=== PATIENT | female | born 1935 | race Caucasian/White ===

== ENCOUNTER 2017-05-05 00:59 | Inpatient (IN) | payer MEDICARE ==
[2017-05-05 02:14] LABS: #Lymphocytes 3.3 thou/uL (1.20-3.40); #Monocytes 1.4 thou/uL (0.11-0.59); #Neutrophils 13.2 thou/uL (1.40-6.50); %Basophils 0.1 % (0.0-1.0); %Eosinophils 0.2 % (0.0-10.0); %Lymphocytes 18.4 % (21.0-51.0); %Monocytes 7.6 % (0.0-10.0); Hematocrit 38.5 % (36.0-47.0); Mean Platelet Volume 6.7 fL (7.4-10.4); Red Blood Cell (RBC) Count 4.11 mill/uL (4.20-5.40); White Blood Cell (WBC) Count 17.9 thou/uL (4.8-10.8)
[2017-05-05 02:20] LABS: PTT 31.2 SEC (22.9-36.1)
[2017-05-05 02:26] LABS: Anion Gap 14 mmol/L (10-20); BUN (Urea Nitrogen) 60 mg/dL (9.8-20.1); Calc. Creatinine Clearance 0 mL/min (70-130); Calcium 9.7 mg/dL (7.8-10.44); Carbon Dioxide 23 mmol/L (23-31); Chloride 99 mmol/L (98-107); Estimated GFR-MDRD 28
[2017-05-05 02:40] LABS: CK (CPK) 6652 U/L (29-168)
[2017-05-05 03:02] LABS: Troponin I 7.431 ng/mL (< 0.028)
[2017-05-05 03:34] LABS: Bilirubin Negative (Negative); Blood, Urine Large (Negative); Glucose, Urine (Dipstick) 250 mg/dL (Negative); Ketone, Urine Negative (Negative); Nitrite Negative (Negative); Protein, Urine (Dipstick) 30 mg/dL (Neg-Trace); Urobilinogen 0.2 mg/dL (0.2-1.0)
[2017-05-05 03:36] LABS: Bacteria/HPF None Seen HPF (None Seen); Hyaline Casts/LPF 0-3 HYALINE CAST LPF (0-3 Hyaline); Squamous Epithelial 0-3 HPF (0-3); WBC/HPF 0-3 HPF (0-3)
[2017-05-05] MEDS ORDERED: Heparin 1,000 UNITS/ML VIAL ONE (04:12)
[2017-05-05] MEDS ORDERED: Heparin 25,000 units/D5W 500 ML IV SCH (04:15)
[2017-05-05] MEDS ORDERED: Heparin 10,000 UNITS/ 10 ML VIAL SLOW IVP SCH (04:15)
[2017-05-05] MEDS ORDERED: Heparin 25,000 units/D5W 500 ML ONE (04:49)
[2017-05-05 07:30] LABS: Troponin I 7.006 ng/mL (< 0.028)
--- NOTE | 2017-05-05 09:23 | HP ---
REASON FOR ADMISSION: Fall. HISTORY OF PRESENT ILLNESS: This is an elderly female with history of multiple medical problems to i nclude coronary artery disease with bypass in the past followed by Dr. Delgado as well as hypertension and diabetes. Yesterday, she was going to the bathroom and she fell. Her family became concerned and they usually call every night, she would not answer the phone, so about 10:30, they went to go check on her and th ey realized she would probably been on the floor for over 4 hours. The patient knew what was going o n, but was brought into the hospital where x-rays were obtained, the results of this are pending at t he time of dictation. However, she was found to have elevated cardiac enzymes suggestive of ID; ther efore admitted to the hospital for further evaluation and treatment. The patient denies any chest, arm or back pain. She also denies any syncopal or near syncopal episod es. PAST MEDICAL HISTORY: 1. Hypertension. 2. Diabetes. 3. Vitamin D deficiency. 4. Syncope in the past. PAST SURGICAL HISTORY: 1. Tonsillectomy and appendectomy in the past. 2. Coronary artery disease with bypass in the past. ALLERGIES: CODEINE. MEDICATIONS: 1. Coreg 25 mg b.i.d. 2. Aspirin 325 mg every day. SOCIAL HISTORY: She does not smoke, she does not drink alcohol. FAMILY HISTORY: Noncontributory. REVIEW OF SYSTEMS: General: No weight gain or loss, weakness, fatigue, fever or chills. HEENT: No diplopia, amaurosis fugax, tinnitus, sore throat or hoarseness. Cardiovascular: No chest , arm or back pain. Pulmonary: No cough, hemoptysis. Gastrointestinal: No GI bleed, constipation, diarrhea. Genitourinary: No dysuria, nocturia, oliguria or polyuria. Endocrine: No polyphagia, p olydipsia or heat or cold intolerance. Musculoskeletal: Admits to arthralgias. No lupus or myopath y. Neurologic: No history of TIA or seizure. All systems are negative. PHYSICAL EXAMINATION: GENERAL: Pleasant female who appears to be in no acute distress. VITAL SIGNS: Stable. PERRLA. Sclerae area clear, not icteric. She had bilateral arcus senilis. T here is no xanthelasma. NECK: Supple with no increased JVP or carotid bruit. Carotid had good upstroke with no thyromegaly. COR: Regular rate and rhythm. CHEST: Symmetrical. Clear to auscultation and percussion. ABDOMEN: Soft, nontender with normoactive bowel sounds. There is no bruit or organomegaly. EXTREMITIES: No edema or cyanosis. Palpable pedal pulses. SKIN: There is no evidence of ulceration, lesion, or rash. NEUROLOGIC: She is awake, alert, and oriented to person, place, and time. LABORATORY DATA: Her white blood cells 17.9, H&H is normal. Her CMP shows sodium of 132. BUN 50, c reatinine 1.6. Her CK-MB is 100.3. Her troponin is 7.43. ASSESSMENT: 1. Status post myocardial infarction. 2. History of coronary artery disease with bypass in the past. 3. Hypertension. 4. Diabetes. 5. Leukocytosis, questionable etiology. PLAN: 1. The patient will be changed to a full admit and will be left n.p.o. until Cardiology sees the pat ient in consultation. We will continue heparin drip. We will begin her beta alfonso. We will also continue oxygen as well. 2. We will check a urine C&S and lipid profile, chest x-ray, CBC, CMP and hemoglobin A1c in the morn ing. 3. We will begin checking blood sugars a.c. and at bedtime and use sliding scale insulin per protoco l. The patient verbalized understanding as well as the daughter and all questions answered to satisf action. This is ANÍBAL Walls dictating for Dr. Johnny Rose.
--- NOTE | 2017-05-05 10:18 | RAD ---
LEFT KNEE 4 VIEWS: Date: 05/05/17 HISTORY: Fall. Pain. COMPARISON: None. FINDINGS: There is diffuse bone demineralization. Joint spaces are preserved. No fracture. No significant joint effusion. Vascular calcifications are noted. IMPRESSION: No fracture. POS: [facility]
--- NOTE | 2017-05-05 10:25 | RAD ---
4 VIEWS RIGHT KNEE: Date: 05/05/17 HISTORY: Fall. Pain. Trauma. COMPARISON: None. FINDINGS: No joint effusion. Joint spaces are preserved. There are vascular calcifications. Diffuse bone demine ralization is identified. No fracture. IMPRESSION: No fracture. POS: [facility]
[2017-05-05 10:29] LABS: Troponin I 7.694 ng/mL (< 0.028)
[2017-05-05] MEDS ORDERED: Enoxaparin Sodium 40 MG/0.4 ML SYRINGE SC SCH (10:45)
--- NOTE | 2017-05-05 11:24 | CON ---
DATE OF SERVICE: 05/05/2017 TYPE OF CONSULTATION: Cardiology Consultation. REASON FOR CONSULTATION: Non-STEMI. HISTORY OF PRESENT ILLNESS: Mrs. Rothman is a very pleasant 82-year-old female who comes to the hospital for a fall. She lives alone, was at home and went to the bathroom to take a shower, she was taking clothes off. She really cannot explain to me how she fell, but she suddenly was on the floor and she could not get up as her leg was twisted. She usually gets a phone call from her son at 9 p.m. every night. Her son states she saw her last at 5 p.m. in that same day, gave her a recall at about 9:30, she would not answer. By 10 p.m. she would not answer, so he decided to go in to see what was going on as he knew it was cold outside and she was not outside. So, when he arrived, he found her on the floor in the bathroom. 911 was called and she was brought in for evaluation. She apparently has no broken bones that I can tell and she had some blood work done and showed a troponin of 7, so Cardiology is being consulted for this. She does have a history of coronary artery disease, having had 3-vessel bypass and an EF of around 40-45%. She has been having a lot of episodes of falling at one point, she was falling due to medications. She had her BiDil stopped and she was doing better. Recently, the family tells me that this is the third time she has fallen in the past 2 weeks. PAST MEDICAL HISTORY: 1. Coronary artery disease as above. 2. Cardiomyopathy as above. 3. Hypertension. 4. Type 2 diabetes. 5. Hyperlipidemia. 6. Multiple falls. PAST SURGICAL HISTORY: 1. Cholecystectomy. 2. Appendectomy. 3. Coronary bypass grafting as above. 4. Carotid endarterectomy. OUTPATIENT MEDICATIONS: Include, 1. Coreg 25 mg b.i.d. 2. Aspirin 81 a day. 3. Glyburide. ALLERGIES: CODEINE. FAMILY HISTORY: Positive for diabetes and heart disease. Noncontributory in this case. SOCIAL HISTORY: No alcohol, tobacco or drugs. REVIEW OF SYSTEMS: A 12-point review of systems was done and is all negative unless stated in the history of present illness. PHYSICAL EXAMINATION: VITAL SIGNS: Temperature 98.2, pulse 64, respiration rate 18, satting 98% on 2 liters, blood pressure 128/62. GENERAL: Awake, alert and oriented x3, in no distress. HEENT: Normocephalic, atraumatic. NECK: Supple. LUNGS: Clear. CARDIOVASCULAR: S1, S2, no S3, S4. There is a grade 2/6 systolic murmur in the right upper sternal border. ABDOMEN: Soft, nontender, nondistended. EXTREMITIES: No edema. SKIN: Warm and dry. LABORATORY WORK: Reviewed. She had a white count of 17, hemoglobin 12, hematocrit 38, platelet count 206. Coags were reviewed. Chemistries were reviewed. Sodium was 132, BUN 60, creatinine 1.76, which is much higher than her baseline which is around 0.9, GFR of 28, glucose was 359 , this morning it was 96. CK was 6652, CK-MB was 100, troponin I was 7.4, now 7.0. UA was yellow , cloudy with 30 protein, 250 glucose, large amount of blood, 7-10 red cells. EKG was reviewed. ASSESSMENT AND PLAN: 1. Non-ST elevation myocardial infarction: Most likely related to her fall and being on the floor for so long and most likely demand ischemia; however, this may also just mean that she failed her stress test and she will need further risk stratification with a heart catheterization. I am not planning on doing it today or tomorrow as her kidney function is much higher than baseline and kidneys will have enough trouble getting rid of her myoglobin and will need some hydration for her rhabdomyolysis from the fall. This will probably happen in the next week or so. Currently, I agree with full anticoagulation. I will switch her heparin drip to Lovenox subcutaneous She is only 40 kilos, so 40 subcu once a day should be enough with her current GFR. 2. Echocardiogram to be done to evaluate LV function. Thank you for letting us participate in the care of your patient. We will follow. TERRY
[2017-05-05] MEDS ORDERED: Enoxaparin Sodium 40 MG/0.4 ML SYRINGE ONE (11:36)
[2017-05-05] MEDS ORDERED: Ondansetron ODT 4 MG TAB PO PRN (12:27)
[2017-05-05] MEDS ORDERED: Ondansetron HCl/PF 4 MG/2 ML Vial IVP PRN ×2 (12:27→18:49)
[2017-05-05] MEDS ORDERED: Acetaminophen 325 MG TAB PO PRN ×2 (12:28→18:49)
--- NOTE | 2017-05-05 14:57 | CT ---
PRELIMINARY REPORT/[facility]/EMERGENCY AFTER HOURS PROCEDURE: EXAM: CT Head Without Intravenous Contrast CLINICAL HISTORY: 82 years old, female; Injury or trauma; Fall; Initial encounter; Blunt trauma (contusions or hematoma s); Consciousness not specified; Patient HX: S/P fall TECHNIQUE: Axial computed tomography images of the head/brain without intravenous contrast. COMPARISON: No relevant prior studies available. FINDINGS: Brain: Mild volume loss No hemorrhage. Chronic right parietal infarction. Mild white matter disease. No edema. Ventricles: Unremarkable. No ventriculomegaly. Bones/joints: Unremarkable. No acute fracture. Soft tissues: Unremarkable. Sinuses: Unremarkable as visualized. No acute sinusitis. Mastoid air cells: Unremarkable as visualized. No mastoid effusion. IMPRESSION: No intracranial hemorrhage.Please see discussion above. Thank you for allowing us to participate in the care of your patient. Dictated and Authenticated by: Luca Rincon MD 05/05/2017 3:16 AM Central Time ([place] & [place]) FINAL REPORT HEAD CT NONCONTRAST: Date: 05/05/17 FINDINGS/IMPRESSION: I agree with the preliminary report given by Rubi. Comparison with 06/23/15. No intracranial hemorrhage or mass effect. Redemonstration of focal encephalomalacia of the right parietal cortex and white matter with addition al scattered areas of hypodensity related to gliosis from chronic ischemic disease.
--- NOTE | 2017-05-05 14:59 | CT ---
PRELIMINARY REPORT/[facility]/EMERGENCY AFTER HOURS PROCEDURE: EXAM: CT Cervical Spine Without Intravenous Contrast CLINICAL HISTORY: 82 years old, female; Injury or trauma; Fall; Initial encounter; Blunt trauma (contusions or hematoma s); Consciousness not specified; Patient HX: S/P fall TECHNIQUE: Axial computed tomography images of the cervical spine without intravenous contrast. COMPARISON: No relevant prior studies available. FINDINGS: Vertebrae: Loss of vertebral body height, presumed degenerative No acute fracture. Discs/spinal canal/neural foramina: No acute findings. Central canal and foraminal stenosis most pron ounced at C4-C5 and C5-C6 Soft tissues: Unremarkable. Lung apices: Unremarkable as visualized. IMPRESSION: No definite acute cervical fracture observed Thank you for allowing us to participate in the care of your patient. Dictated and Authenticated by: Luca Rincon MD 05/05/2017 3:16 AM Central Time ([place]) FINAL REPORT CERVICAL SPINE CT WITHOUT CONTRAST: Date: 05/05/17 HISTORY: Status post fall. Post-traumatic pain. COMPARISON: 08/08/13. TECHNIQUE: Noncontrast cervical spine CT is performed in the axial plane. Reformatted images are submitted for i nterpretation. FINDINGS: This report is in agreement with the preliminary report by Rubi. No cervical spine fracture. There is degenerative change with loss of disc space height and varying degrees of central canal stenosis and foraminal narrowing. Evaluation is limited by technique. Nonemergent cervical spine MRI can be perfo rmed. Stable calcifications along the posterior aspect of the central spinal canal at the C5 level. POS: [facility]
[2017-05-05] MEDS ORDERED: Dextrose 50% Abboject 50 ML SYRINGE IVP PRN (17:32)
[2017-05-05] MEDS ORDERED: Insulin Regular 300 UNITS/3 ML VIAL SC PRN (17:32)
[2017-05-05] MEDS ORDERED: Dextrose 5% in Water 1,000 ML IV PRN (17:32)
[2017-05-05] MEDS ORDERED: Ondansetron ODT 4 MG TAB SL PRN (18:49)
[2017-05-05] MEDS: Acetaminophen 325 MG TAB PO PRN (19:15)
[2017-05-05] MEDS: Carvedilol 25 MG TAB PO SCH (20:56)
[2017-05-06 05:10] LABS: #Eosinphils 0.1 thou/uL (0.0-0.7); #Lymphocytes 4.8 thou/uL (1.20-3.40); #Monocytes 1.1 thou/uL (0.11-0.59); #Neutrophils 7.3 thou/uL (1.40-6.50); %Basophils 0.2 % (0.0-1.0); %Eosinophils 0.5 % (0.0-10.0); %Monocytes 8.4 % (0.0-10.0); Hematocrit 35.4 % (36.0-47.0); Mean Platelet Volume 6.9 fL (7.4-10.4); Red Blood Cell (RBC) Count 3.74 mill/uL (4.20-5.40); White Blood Cell (WBC) Count 13.2 thou/uL (4.8-10.8)
[2017-05-06 05:15] LABS: Hemoglobin A1c 6.9 % (4.0-6.0)
[2017-05-06 05:33] LABS: ALT (SGPT) 66 U/L (8-55); AST (SGOT) 191 U/L (5-34); Alkaline Phosphatase 85 U/L (40-150); Anion Gap 10 mmol/L (10-20); BUN (Urea Nitrogen) 37 mg/dL (9.8-20.1); Bilirubin, Total 0.7 mg/dL (0.2-1.2); Calc. Creatinine Clearance 28 mL/min (70-130); Calcium 8.7 mg/dL (7.8-10.44); Carbon Dioxide 26 mmol/L (23-31); Chloride 104 mmol/L (98-107); Cholesterol 105 mg/dl (< 200 Desired); Estimated GFR-MDRD 53; Globulin 3.1 g/dL (2.4-3.5); LDL Cholesterol, Calculated 46 mg/dL; Protein, Total 6.4 g/dL (6.0-8.3)
--- NOTE | 2017-05-06 08:57 | RAD ---
SINGLE VIEW OF THE CHEST: COMPARISON: 01/19/16. HISTORY: Myocardial infarction. FINDINGS: A single view of the chest shows a normal-size cardiomediastinal silhouette. The patient is status p ost sternotomy. Atelectasis is seen in both lung bases. Increased interstitial lung markings are pr esent. There is no evidence of consolidation, mass, or pleural effusion. IMPRESSION: Bibasilar atelectasis without acute cardiopulmonary process. POS: [facility]
[2017-05-06] MEDS ORDERED: Enoxaparin Sodium 40 MG/0.4 ML SYRINGE SC SCH (09:00)
[2017-05-06] MEDS: Sodium Chloride 0.9% 1,000 ML IV SCH ×2 (09:01→18:49)
[2017-05-06] MEDS: Carvedilol 25 MG TAB PO SCH ×2 (09:01→21:24)
[2017-05-06] MEDS: Insulin Regular 300 UNITS/3 ML VIAL SC PRN (12:03)
[2017-05-06] MEDS: Acetaminophen 325 MG TAB PO PRN ×2 (12:03→23:57)
--- NOTE | 2017-05-06 15:03 | PQF ---
DATE: 05-09-17 ATTN: DR. SKIP ANDINO Please exercise your independent, professional judgment in responding to the clarification form. Clinical indicators are provided on the bottom of this form for your review Please check appropriate box(s): [ x ] Acute Renal Failure (ARF) / Acute Kidney Injury (ASAD) [ ] Acute on Chronic Renal Failure please specify Stage of CKD (see below) [ ] CKD without ARF/ASAD please specify Stage of CKD [ x ] Other diagnosis _rhabdomyolysis [ ] Unable to determine In addition, please specify: Present on Admission (POA): [ ] Yes [ ] No [ ] Unable to determine National Kidney Foundation Guidelines for CKD Staging Stage I Kidney damage with normal or increased GFR GFR > 90 Stage II Kidney damage with mildly decreased GFR GFR 60-89 Stage III Kidney damage with moderately decreased GFR GFR 30-59 Stage IV Kidney damage with severely decreased GFR GFR 16-29 Stage V Kidney failure GFR<15 ESRDEnd Stage Renal Disease On dialysis For continuity of documentation, please document condition throughout progress notes and discharge summary. Thank You. CLINICAL INDICATORS - SIGNS / SYMPTOMS / LABS ER DOCUMENTATION: PT WAS DOWN IN BATHROOM FOR UNKNOWN LENGTH OF TIME GFR: 05-05-17: 28 05-06-17 53 BUN: 05-05-17: 60 05-06-17: 37 CREATININE: 05-05-17: 1.76 05-06-17: 1.01 RISK FACTORS: CONSULT NOTE DR. LAND 05-05-17: I AM NOT PLANNING ON DOING IT TOMORROW HER KIDNEY FUNCTION IS MUCH HIGHER THAN BASELINE AND SHE IS GOING TO HAVE TO HAVE ENOUGH TIME GETTING RID OF HER MYOGLOBIN AND WILL NEED SOME HYDRATION FOR HER RHABDOMYOLYSIS FROM THE FALL TREATMENTS: IVF (05-06-17) (This form is maintained as a part of the permanent medical record) 2014 [employer] All Rights Reserved WILFREDO [email or web address] Office: [phone] [facility]ITAL[facility]
--- NOTE | 2017-05-06 15:29 | PDOC.CTH ---
Cardiology Progress Note - Subjective She is feeling better. No chest pain, tightness, pressure, SOB. - Objective Vital Signs Temp Pulse Resp BP Pulse Ox 05/06/17 11:25 98.4 F 70 18 109/54 L 99 05/06/17 08:00 98.4 F 70 18 05/06/17 07:18 98.6 F 69 16 137/61 99 05/06/17 04:08 98.4 F 73 16 122/56 L 96 Admit Weight 88 lb 3.2 oz Weight 89 lb 1.6 oz 05/05/17 05/06/17 05/07/17 06:59 06:59 06:59 Intake Total 490 480 Balance 490 480 - Physical Examination General/Neuro: alert & oriented x3, NAD Neck: no JVD present Lungs: CTA, unlabored respirations Heart: RRR Abdomen: NT/ND Extremities: other: (no edema.) - Telemetry Telemetry Rhythm: NSR - Labs Result Diagrams: 05/06/17 04:36 05/06/17 04:36 Troponin/CKMB CK-MB (CK-2) 100.3 ng/mL (0-6.6) H* 05/05/17 02:01 Troponin I 7.694 ng/mL (< 0.028) H* 05/05/17 09:52 - Assessment/Plan 1. NSTEMI 2. Rhabdomyolysis. 3. S/P Fall 4. Orthostatic hypotension. PLAN: - Continue IV hydration. - Apical hypoikinsis. Will plan on doing LHC. - We spoke about risks and benefits of procedure and she agrees to proceed. DAVID if needed.
[2017-05-06] MEDS ORDERED: Communication Order-Pharmacy FS SCH (15:45)
[2017-05-07] MEDS: Sodium Chloride 0.9% 1,000 ML IV SCH ×4 (00:09→21:00)
[2017-05-07 04:51] LABS: #Basophils 0.1 thou/uL (0.0-0.2); #Eosinphils 0.1 thou/uL (0.0-0.7); #Monocytes 0.8 thou/uL (0.11-0.59); #Neutrophils 5.3 thou/uL (1.40-6.50); %Basophils 0.5 % (0.0-1.0); %Eosinophils 0.6 % (0.0-10.0); %Lymphocytes 39.1 % (21.0-51.0); %Monocytes 7.8 % (0.0-10.0); Mean Platelet Volume 7.3 fL (7.4-10.4); Red Blood Cell (RBC) Count 3.25 mill/uL (4.20-5.40); White Blood Cell (WBC) Count 10.3 thou/uL (4.8-10.8)
[2017-05-07 05:05] LABS: Anion Gap 9 mmol/L (10-20); BUN (Urea Nitrogen) 29 mg/dL (9.8-20.1); CK (CPK) 3832 U/L (29-168); Calc. Creatinine Clearance 34 mL/min (70-130); Calcium 8.4 mg/dL (7.8-10.44); Carbon Dioxide 26 mmol/L (23-31); Chloride 111 mmol/L (98-107); Estimated GFR-MDRD 66
[2017-05-07] MEDS ORDERED: Heparin 1000 UNIT/NS 500ML(OR) 1,000 ML ONE (06:33)
[2017-05-07] MEDS ORDERED: Lidocaine 1% (PF) 30 ML VIAL ONE (06:57)
[2017-05-07] MEDS: Carvedilol 25 MG TAB PO SCH ×2 (08:44→21:00)
--- NOTE | 2017-05-07 08:53 | PRG ---
DATE OF SERVICE: 05/07/2017 SUBJECTIVE: The patient had a good night. She has no chest pain, has no breathing problems. The on ly thing she is complaining of is her back hurting. PHYSICAL EXAMINATION: GENERAL: She is awake. VITAL SIGNS: Her blood pressure 156/70, pulse 68, respirations 20, temperature 99. HEENT: Unremarkable. Normal oropharynx. PERRLA. Sclerae clear, not icteric. She had bilateral arc us senilis. There is no xanthelasma. NECK: Supple with no increased JVP or carotid bruit. Carotid had good upstroke with no thyromegaly. COR: Regular rate and rhythm. CHEST: Symmetrical. Clear to auscultation and percussion. ABDOMEN: Soft, nontender with normoactive bowel sounds. No bruit or organomegaly. EXTREMITIES: No edema or cyanosis. She had palpable pedal pulses. SKIN: There is no evidence of ulceration lesion, or rash. NEUROLOGIC: She is awake and alert and oriented. Her blood sugar is 142. Her CK is better at 3832. ASSESSMENT: 1. Non-ST elevated myocardial infarction. 2. Status post fall. 3. Rhabdomyolysis. 4. Non-insulin dependent diabetes mellitus. PLAN: The patient will be continued on IV fluids. The patient will be undergoing angiographic evalu ation as outlined by Dr. Tyson.
[2017-05-07] MEDS: Acetaminophen 325 MG TAB PO PRN (16:29)
--- NOTE | 2017-05-07 18:23 | PDOC.CTH ---
Cardiology Progress Note - Subjective She is doing well. No chest pain, tightness, pressure, SOB. - Objective Vital Signs Temp Pulse Resp BP Pulse Ox 05/07/17 16:00 98.9 F 83 20 133/61 95 05/07/17 11:49 98.5 F 78 20 116/55 L 94 L 05/07/17 08:00 99.0 F 68 20 166/72 H 99 Admit Weight 88 lb 3.2 oz Weight 110 lb 05/06/17 05/07/17 05/08/17 06:59 06:59 06:59 Intake Total 490 3318 1735 Output Total 1250 Balance 490 2068 1735 - Physical Examination General/Neuro: alert & oriented x3, NAD Neck: no JVD present Lungs: CTA, unlabored respirations Heart: RRR Abdomen: NT/ND Extremities: other: (no edema) - Telemetry Telemetry Rhythm: NSR - Labs Result Diagrams: 05/07/17 03:51 05/07/17 03:51 Troponin/CKMB CK-MB (CK-2) 100.3 ng/mL (0-6.6) H* 05/05/17 02:01 Troponin I 7.694 ng/mL (< 0.028) H* 05/05/17 09:52 - Assessment/Plan 1. NSTEMI 2. Rhabdomyolysis. 3. S/P Fall 4. Orthostatic hypotension. PLAN: - Continue IV hydration. - Apical hypokinesis. I offered C yesterday but she is now not sure if she wants this,. I had a long conversation with her and her family about this and she will make a decision but for now will treat her NSTEMI medically.
[2017-05-07] MEDS ORDERED: Enoxaparin Sodium 60 MG/0.6 ML SYRINGE SC SCH (18:30)
[2017-05-08 06:16] LABS: Hematocrit 33.2 % (36.0-47.0)
[2017-05-08] MEDS: Sodium Chloride 0.9% 1,000 ML IV SCH ×2 (06:16→13:54)
[2017-05-08] MEDS: Carvedilol 25 MG TAB PO SCH ×2 (08:31→21:41)
[2017-05-08] MEDS: Enoxaparin Sodium 60 MG/0.6 ML SYRINGE SC SCH ×2 (08:32→21:42)
[2017-05-08 10:41] VITALS: BMI 21.7
[2017-05-08] MEDS: Insulin Regular 300 UNITS/3 ML VIAL SC PRN (11:15)
--- NOTE | 2017-05-08 13:08 | PDOC.CTH ---
Cardiology Progress Note - Subjective No new issues. She denies any chest pain, tightness, pressure, SOB. - Objective Vital Signs Temp Pulse Pulse Pulse Resp BP BP 05/08/17 11:05 98.3 F 71 18 05/08/17 09:35 68 73 131/62 128/60 05/08/17 08:00 99.6 F 70 18 05/08/17 07:25 99.6 F 70 18 05/08/17 03:18 98.4 F 79 18 BP Pulse Ox Pulse Ox Pulse Ox 05/08/17 11:05 168/72 H 96 05/08/17 09:35 93 L 94 L 05/08/17 08:00 99 05/08/17 07:25 153/67 H 99 05/08/17 03:18 158/68 H 97 Admit Weight 88 lb 3.2 oz Weight 107 lb 9.6 oz 05/07/17 05/08/17 05/09/17 06:59 06:59 06:59 Intake Total 3318 4250 480 Output Total 1250 300 Balance 2068 3950 480 - Physical Examination General/Neuro: alert & oriented x3, NAD Neck: no JVD present Lungs: CTA, unlabored respirations Heart: RRR Abdomen: NT/ND Extremities: other: (no edema.) - Telemetry Telemetry Rhythm: NSR - Labs Result Diagrams: 05/08/17 06:02 05/08/17 06:02 Troponin/CKMB CK-MB (CK-2) 100.3 ng/mL (0-6.6) H* 05/05/17 02:01 Troponin I 7.694 ng/mL (< 0.028) H* 05/05/17 09:52 - Assessment/Plan 1. NSTEMI 2. Rhabdomyolysis. 3. S/P Fall 4. Orthostatic hypotension. PLAN: - Will hold IV fluids for now as she is starting to get a little short winded with lying flat. - She has decided she does want to go ahead and have a [facility]. - Will polan on doing this tomorrow morning.
[2017-05-08] MEDS ORDERED: Communication Order-Pharmacy FS SCH (13:15)
[2017-05-08] MEDS: Lisinopril 10 MG TAB PO SCH (21:41)
[2017-05-09] MEDS: Enoxaparin Sodium 60 MG/0.6 ML SYRINGE SC SCH (05:22)
[2017-05-09] MEDS: Lisinopril 10 MG TAB PO SCH ×2 (05:27→20:48)
[2017-05-09] MEDS: Carvedilol 25 MG TAB PO SCH ×2 (05:27→20:48)
[2017-05-09 05:58] LABS: Anion Gap 12 mmol/L (10-20); BUN (Urea Nitrogen) 15 mg/dL (9.8-20.1); CK (CPK) 844 U/L (29-168); Calc. Creatinine Clearance 43 mL/min (70-130); Calcium 8.8 mg/dL (7.8-10.44); Carbon Dioxide 26 mmol/L (23-31); Chloride 106 mmol/L (98-107); Estimated GFR-MDRD 68
--- NOTE | 2017-05-09 08:15 | PRG ---
DATE OF SERVICE: 05/09/2017 This is ANÍBAL Walls dictating a progress note for Johnny Rose M.D SUBJECTIVE: The patient is very weak. Therapy is helping her get to the commode. She apparently do es not want to have a CAT, but she does not want to sign the consent. Does says, change for BiPAP. PHYSICAL EXAMINATION: GENERAL: Upon evaluation, she is awake and she is alert and oriented. VITAL SIGNS: Her blood pressure is 160/70, pulse 80, respirations 20. She is afebrile. NECK: Supple with no increased JVP or carotid bruit. Carotid had good upstroke with no thyromegaly. COR: Regular rate and rhythm. CHEST: Symmetrical. Clear to auscultation and percussion. ABDOMEN: Soft and nontender with normoactive bowel sounds. No bruit or organomegaly. EXTREMITIES: No edema or cyanosis. She had palpable pedal pulses. SKIN: There is no evidence of ulcer, lesion, or rash. NEUROLOGIC: She is awake and alert. ASSESSMENT: 1. Status post myocardial infarction. 2. Rhabdomyolysis status post fall. 3. Diabetes. 4. Hypertension. PLAN: We will leave the plan up to Cardiology. If she is not going to have a catheterization, then we will assess for placement by rn social services.
[2017-05-09] MEDS: Acetaminophen 325 MG TAB PO PRN (08:55)
[2017-05-09] MEDS: Insulin Regular 300 UNITS/3 ML VIAL SC PRN (11:38)
--- NOTE | 2017-05-09 12:43 | PDOC.CTH ---
Cardiology Progress Note - Subjective She is doing well. She denies any chest pain, tightness ,pressure, SOB. - Objective Vital Signs Temp Pulse Resp BP BP Pulse Ox 05/09/17 11:10 99 F 71 18 96 05/09/17 10:07 71 103/51 L 05/09/17 08:00 99.7 F H 71 18 185/75 H 92 L 05/09/17 05:31 84 160/72 H 05/09/17 05:27 160/72 H 05/09/17 03:14 98.7 F 83 16 183/77 H 93 L Admit Weight 88 lb 3.2 oz Weight 109 lb 12.8 oz 05/08/17 05/09/17 05/10/17 06:59 06:59 06:59 Intake Total 4250 2530 Output Total 300 Balance 3950 2530 - Physical Examination General/Neuro: alert & oriented x3, NAD Neck: no JVD present Lungs: CTA, unlabored respirations Heart: RRR Abdomen: NT/ND Extremities: other: (no edema.) - Telemetry Telemetry Rhythm: NSR - Labs Result Diagrams: 05/08/17 06:02 05/09/17 05:08 Troponin/CKMB CK-MB (CK-2) 100.3 ng/mL (0-6.6) H* 05/05/17 02:01 Troponin I 7.694 ng/mL (< 0.028) H* 05/05/17 09:52 - Assessment/Plan 1. NSTEMI 2. Rhabdomyolysis. 3. S/P Fall 4. Orthostatic hypotension. PLAN: - She did not want to sign the consent again for her [facility], she is not wanting to have not even the remote possibility of a CABG. I think this is reasonable as she has had it before and knows what it entails. She is having no symptoms suggestive of ischemia, she has not had any arrhythmias on telemetry. She has been tolerating PT well. - Will plan to continue current regimen for now.
[2017-05-09] MEDS: Amlodipine 5 MG TAB PO SCH (17:40)
[2017-05-10 06:03] LABS: Hematocrit 34.3 % (36.0-47.0)
[2017-05-10 07:18] VITALS: TEMP 97.7
[2017-05-10] MEDS: Carvedilol 25 MG TAB PO SCH (08:39)
[2017-05-10] MEDS: Amlodipine 5 MG TAB PO SCH (08:39)
[2017-05-10] MEDS: Lisinopril 10 MG TAB PO SCH (08:39)
[2017-05-10] MEDS ORDERED: Enoxaparin Sodium 40 MG/0.4 ML SYRINGE SC SCH (09:00)
[2017-05-10 09:47] VITALS: BP 107/54
--- NOTE | 2017-05-25 13:49 | EKG ---
Test Reason : FALL Blood Pressure : / mmHG Vent. Rate : 100 BPM Atrial Rate : 100 BPM P-R Int : 184 ms QRS Dur : 074 ms QT Int : 338 ms P-R-T Axes : 043 -18 -29 degrees QTc Int : 436 ms Normal sinus rhythm Minimal voltage criteria for LVH, may be normal variant Inferior infarct , age undetermined Possible Anterior infarct , age undetermined Abnormal ECG Confirmed by GREGORIA ZARATE ([id number]), editorial director JOSH APPLE ([id number] on 05/25/2017 1:48:58 PM Referred By: Confirmed By:GREGORIA ZARATE
--- NOTE | 2017-05-25 13:49 | EKG ---
Test Reason : REPEAT Blood Pressure : / mmHG Vent. Rate : 095 BPM Atrial Rate : 095 BPM P-R Int : 200 ms QRS Dur : 078 ms QT Int : 350 ms P-R-T Axes : 105 000 -08 degrees QTc Int : 439 ms Normal sinus rhythm Cannot rule out Anterior infarct , age undetermined T wave abnormality, consider lateral ischemia Abnormal ECG Confirmed by GREGORIA ZARATE ([id number]), script editor JOSH APPLE ([id number]) on 05/25/2017 1:48:58 PM Referred By: Confirmed By:GREGORIA ZARATE
== END 2017-05-10 10:12 | DRG 281 ==
LOC: ERS 00:59 → ERHOLD 04:24 → 2SE 12:39
PROVIDERS: ADMIT Specialist; ATTEND Specialist
DX: I21.4 Non-ST elevation (NSTEMI) myocardial infarction (principal); M62.82 Rhabdomyolysis; N17.9 Acute kidney failure, unspecified; I42.9 Cardiomyopathy, unspecified; E11.9 Type 2 diabetes mellitus without complications; Z95.1 Presence of aortocoronary bypass graft; I10 Essential (primary) hypertension; Z91.81 History of falling; I25.10 Atherosclerotic heart disease of native coronary artery without angina pectoris; E55.9 Vitamin D deficiency, unspecified; Z79.82 Long term (current) use of aspirin; Z88.5 Allergy status to narcotic agent; W18.30XA Fall on same level, unspecified, initial encounter; Y93.E1 Activity, personal bathing and showering; Y92.012 Bathroom of single-family (private) house as the place of occurrence of the external cause; E78.5 Hyperlipidemia, unspecified; I95.1 Orthostatic hypotension
CPT/HCPCS: 36415; 36416; 70450; 71010; 72125; 80048; 80053; 80061; 81003; 81015; 82550; 82553; 82565; 83036; 84484; 85014; 85018; 85025; 85049; 85610; 85730; 87086; 93005; 93306; 93798; 96361; 96365; 96366; 96372; 96375; A4216; G8978-GP-CM; G8979-GP-CK; G8987-GO-CK; G8988-GO-CI; J1644; J1650; J1815; J2001; J2405

== ENCOUNTER 2017-07-21 23:59 | Inpatient (IN) | payer MEDICARE ==
[2017-07-22 00:58] LABS: #Basophils 0.1 thou/uL (0.0-0.2); #Eosinphils 0.3 thou/uL (0.0-0.7); #Lymphocytes 4.4 thou/uL (1.20-3.40); #Monocytes 0.9 thou/uL (0.11-0.59); #Neutrophils 8.6 thou/uL (1.40-6.50); %Basophils 0.8 % (0.0-1.0); %Eosinophils 1.9 % (0.0-10.0); %Lymphocytes 30.8 % (21.0-51.0); %Monocytes 6.1 % (0.0-10.0); %Neutrophils 60.5 % (42.0-75.0); Hemoglobin 12.7 g/dL (12.0-16.0); Mean Corpuscular HGB CONC 31.7 g/dL (32.0-36.0); Mean Corpuscular Hemoglobin 30.1 pg (27.0-31.0); Mean Corpuscular Volume 94.8 fl (81.0-99.0); Mean Platelet Volume 7.3 fL (7.4-10.4); Platelet Count 257 thou/uL (130-400); RBC Distribution Width 13.8 % (11.5-14.5); Red Blood Cell (RBC) Count 4.23 mill/uL (4.20-5.40); White Blood Cell (WBC) Count 14.2 thou/uL (4.8-10.8)
[2017-07-22 01:04] LABS: Bilirubin Negative (Negative); Blood, Urine Negative (Negative); Clarity CLEAR (Clear); Glucose, Urine (Dipstick) Negative (Negative); Leukocyte Small (Negative); Nitrite Positive (Negative); Protein, Urine (Dipstick) Negative (Neg-Trace); Specific Gravity, Urine 1.011 (1.002-1.036); Urobilinogen 0.2 mg/dL (0.2-1.0)
[2017-07-22 01:07] LABS: Bacteria/HPF 4+ HPF (None Seen); Hyaline Casts/LPF 0-3 HYALINE CAST LPF (0-3 Hyaline); RBC/HPF 0-3 HPF (0-3); Squamous Epithelial 0-3 HPF (0-3)
[2017-07-22 01:16] LABS: ALT (SGPT) 13 U/L (8-55); AST (SGOT) 27 U/L (5-34); Alkaline Phosphatase 113 U/L (40-150); Anion Gap 15 mmol/L (10-20); BUN (Urea Nitrogen) 30 mg/dL (9.8-20.1); Bilirubin, Total 0.4 mg/dL (0.2-1.2); Calc. Creatinine Clearance 0 mL/min (70-130); Calcium 9.1 mg/dL (7.8-10.44); Carbon Dioxide 21 mmol/L (23-31); Chloride 103 mmol/L (98-107); Estimated GFR-MDRD 58; Globulin 4.3 g/dL (2.4-3.5); Glucose 109 mg/dL (83-110); Potassium 4.3 mmol/L (3.5-5.1); Protein, Total 8.3 g/dL (6.0-8.3); Sodium 135 mmol/L (136-145)
[2017-07-22] MEDS ORDERED: cefTRIAXone\\ROCEPHIN 500 MG VIAL ONE (02:02)
[2017-07-22] MEDS ORDERED: Azithromycin 500 MG VIAL ONE (02:02)
[2017-07-22] MEDS ORDERED: hydrALAZINE 20 MG/ML VIAL ONE (02:05)
[2017-07-22] MEDS ORDERED: Acetaminophen 325 MG TAB PO PRN (02:10)
[2017-07-22] MEDS ORDERED: Milk Of Magnesia 30 ML UDCUP PO PRN (02:10)
[2017-07-22] MEDS ORDERED: HumaLOG 300 UNITS/3 ML VIAL SC PRN (02:13)
[2017-07-22] MEDS ORDERED: Dextrose 50% Abboject 50 ML SYRINGE SLOW IVP PRN (02:13)
[2017-07-22] MEDS ORDERED: Dextrose 5% in Water 1,000 ML IV PRN (02:13)
[2017-07-22] MEDS ORDERED: Albuterol Sulfate 2.5 mg/3 ml Neb NEB PRN (03:10)
[2017-07-22 03:48] LABS: #Basophils 0.1 thou/uL (0.0-0.2); #Eosinphils 0.1 thou/uL (0.0-0.7); #Lymphocytes 3.3 thou/uL (1.20-3.40); #Monocytes 0.5 thou/uL (0.11-0.59); #Neutrophils 6.2 thou/uL (1.40-6.50); %Basophils 0.8 % (0.0-1.0); %Eosinophils 0.7 % (0.0-10.0); %Lymphocytes 32.2 % (21.0-51.0); %Neutrophils 61.2 % (42.0-75.0); Hemoglobin 10.6 g/dL (12.0-16.0); Mean Corpuscular HGB CONC 33.3 g/dL (32.0-36.0); Mean Corpuscular Volume 93.2 fl (81.0-99.0); Mean Platelet Volume 7.2 fL (7.4-10.4); Platelet Count 213 thou/uL (130-400); RBC Distribution Width 13.8 % (11.5-14.5); White Blood Cell (WBC) Count 10.1 thou/uL (4.8-10.8)
[2017-07-22 04:19] LABS: Anion Gap 12 mmol/L (10-20); BUN (Urea Nitrogen) 31 mg/dL (9.8-20.1); Calc. Creatinine Clearance 0 mL/min (70-130); Calcium 8.7 mg/dL (7.8-10.44); Carbon Dioxide 23 mmol/L (23-31); Chloride 105 mmol/L (98-107); Estimated GFR-MDRD 66; Glucose 116 mg/dL (83-110); Sodium 135 mmol/L (136-145)
--- NOTE | 2017-07-22 05:50 | HP ---
PRESENTING COMPLAINT: "I was unconscious". HISTORY OF PRESENT ILLNESS: This is a pleasant 82-year-old female with a past medical history of hyp ertension, type 2 diabetes mellitus who was found by her son unresponsive at home this evening. He i mmediately called EMS and her blood glucose was checked and was found to be in the 40s. It improved by giving D50. She was also found to be hypothermic, hypoxic and wheezing. At the emergency room sh e had slightly elevated WBC, otherwise unremarkable CBC. Sodium level was 135. Chemistry was largel y unremarkable as well. Glucose had increased to 109. Urinalysis showed nitrites, leukocyte esteras e, bacteria and increased WBCs. She also had a chest x-ray which was suggestive of pneumonia. She r eceived nebulizer treatment with marked improvement in her respiratory status. She was then admitted for further management. PAST MEDICAL HISTORY: Hypertension, type 2 diabetes mellitus, vitamin D deficiency. PAST SURGICAL HISTORY: Tonsillectomy, appendectomy, CAD with bypass?. ALLERGIES: CODEINE. SOCIAL HISTORY: She does not smoke or drink alcohol or use illicit drugs. FAMILY HISTORY: Reviewed and noncontributory. REVIEW OF SYSTEMS: GENERAL: Positive for chills, shortness of breath. HEENT: Negative. PULMONARY: Shortness of breath. GI: Negative. CARDIOVASCULAR: Negative. : Negative. ENDOCRINE: Negative. MUSCULOSKELETAL: Negative. NEUROLOGIC: Per HPI. ALLERGY/IMMUNOLOGIC: Negative. RHEUMATOLOGIC: Negative. PSYCHIATRIC: Negative. PHYSICAL EXAMINATION: GENERAL: The patient is alert and oriented to person and place. No acute distress. HEENT: Normocephalic, atraumatic. Not pale, anicteric. PERRLA, EOMI. RESPIRATORY: Vesicular breath sounds. No wheezing or rales. CARDIOVASCULAR: S1 and S2 only. No focal deficits. ABDOMEN: Soft, bowel sounds positive, nontender, nondistended. MUSCULOSKELETAL: No skeletal abnormalities. SKIN: Warm, dry, well perfused. NEUROLOGIC: Alert and oriented x2. No focal deficits. PSYCHIATRIC: Normal mood and affect. LABORATORY DATA: Per HPI. IMAGIG: Per HPI. ASSESSMENT PLAN: 1. Hypoglycemia. This is likely aggravated by her underlying pulmonary/urinary infection. She resp onded to D50 and is now alert and well oriented. We will place her on D5 in half normal saline for g entle hydration and monitor her blood glucose. We will hold any longacting insulin and start on slid ing scale insulin, diabetic diet and hypoglycemia protocol. 2. Hypertension. Blood pressure is fairly well controlled. We will monitor and reintroduce her robyn e meds once verified. 3. Diabetes mellitus. Last A1c was 6.9 in 04/2017. We will manage as per problem #1. 4. Pneumonia. She presented with hypothermia, hypoxia and wheezing. This has improved with nebuliz er therapy. We will continue with IV ceftriaxone and azithromycin with nebulizer therapies. Since the patient was also found down we will check a CPK.
[2017-07-22 07:43] VITALS: BMI 23.2
--- NOTE | 2017-07-22 07:50 | RAD ---
AP VIEW CHEST: DATE: 07/22/17. COMPARISON: Comparison is made to previous exam from 05/06/17. HISTORY: Pneumonia. Altered mental status. FINDINGS: AP view chest demonstrates sternotomy wires seen. Cardiomegaly noted. Calcification of the aorta is present. There is some minimal blunting of the costophrenic angles compatible with tiny bilateral p leural effusions. No other significant interval changes seen. IMPRESSION: Cardiomegaly, pulmonary vascular congestion, and perihilar airspace opacities. Findings compatible w ith congestive heart failure. POS: [facility]
[2017-07-22] MEDS: Dextrose 5 %-0.45 % NaCl 1,000 ML IV SCH ×2 (09:41→21:04)
[2017-07-22] MEDS: Docusate 100 MG CAP PO SCH ×2 (09:41→21:01)
[2017-07-22] MEDS: Heparin 5,000 UNITS/ML VIAL SC SCH ×3 (09:42→21:01)
[2017-07-23] MEDS: Azithromycin 500 MG in Sodium Chloride 0.9% 250 ML 250 ML IVPB SCH (06:03)
--- NOTE | 2017-07-23 08:27 | PRG ---
DATE OF SERVICE: 07/23/2017 SUBJECTIVE: The patient is sitting up in bed. She has not gotten out of bed since she has been in [facility]. She does not walk, but usually at home she is in a wheelchair. She is breathing okay. Her appetite is not bad she states as well. PHYSICAL EXAMINATION: GENERAL: She is awake, alert, and oriented to person, place and time. VITAL SIGNS: Her blood pressure 138/60, pulse 70, respiration rate 18. She is afebrile. NECK: Supple with no increased JVP or carotid bruit. Carotid had good upstroke with no thyromegaly. COR: Regular rate and rhythm. CHEST: Upper lobe wheezing, bilateral bibasilar crackles. ABDOMEN: Soft, nontender with normoactive bowel sounds. No bruit or organomegaly. EXTREMITIES: No edema or cyanosis. She had palpable pedal pulses. SKIN: There is no evidence of ulcer, lesion or rash. NEUROLOGIC: She is awake, alert, and oriented to person, place, and time. There is no lab in the chart today. The last chest x-ray was on 07/22/2017. ASSESSMENT: 1. Pneumonia. 2. Hypertension. 3. Diabetes. 4. Vitamin D deficiency. PLAN: The patient will have a followup CBC, CMP and chest x-ray in the morning. We will also ask ph ysical therapy to get the patient out of bed. All questions answered to the patient's satisfaction.
[2017-07-23] MEDS: cefTRIAXone\\ROCEPHIN 1 GM in Syringe 10 ML SLOW IVP SCH (08:38)
[2017-07-23] MEDS: Docusate 100 MG CAP PO SCH ×2 (08:39→20:00)
[2017-07-23] MEDS: Heparin 5,000 UNITS/ML VIAL SC SCH ×3 (08:39→20:01)
--- NOTE | 2017-07-23 09:42 | RAD ---
CHEST 1 VIEW: HISTORY: Pneumonia. COMPARISON: Chest 1 view 07/22/17. FINDINGS: There are chronic pleural and parenchymal changes in the lung bases. No pneumothorax. Cardiac silho uette and mediastinal contours are similar. There are right upper quadrant surgical clips. No acute osseous abnormality. Mild pulmonary venous congestion. IMPRESSION: No significant change in radiographic appearance of the chest. Predominantly chronic pleural and par enchymal changes along with mild pulmonary venous hypertension with cardiomegaly. POS: [facility]
--- NOTE | 2017-07-23 13:25 | PQF ---
CLINICAL DOCUMENTATION IMPROVEMENT CLARIFICATION FORM: ICD-10 Updated PLEASE DO AN ADDENDUM TO THE PROGRESS NOTE WITH ANY DOCUMENTATION UPDATES OR ADDITIONS AND CARRY THROUGH TO DC SUMMARY. THANK YOU. DATE: 07/23 ATTN: DR. JEANNE ANDINO Please exercise your independent, professional judgment in responding to the clarification form. Clinical indicators are provided on the bottom of this form for your review. Please check appropriate box(s): [ ] Pneumonia secondary to (specify organism / underlying disease) [ x ] Simple Pneumonia (community acquired - nosocomial) [ ] Pneumonia of unknown etiology [ ] Other diagnosis [ ] Unable to determine For continuity of documentation, please document condition throughout progress notes and discharge summary. Thank You. CLINICAL INDICATORS - SIGNS / SYMPTOMS / LABS ER PHYSICIAN DOCUMENTATION 07/22: FINAL DIAGNOSES: PNEUMONIA PHYSICIAN H&P DOCUMENTATION 07/22: HX OF PRESENT ILLNESS: SHE ALSO HAD A CXR WHICH WAS SUGGESTIVE OF PNEUMONIA ASSESSMENT & PLAN: 4. PNEUMONIA. SHE PRESENTED WITH HYPOTHERMIA, HYPOXIA & WHEEZING. ...WE WILL CONTINUE WITH IV CEFTRIAXONE & AZITHROMYCIN LICENSED ACUPUNCTURIST PROGRESS NOTE 07/23: ASSESSMENT: 1. PNEUMONIA WBC: 14.2 T: 100.4 RISK FACTORS: HYPOXIA ON ADMIT (81% ON RA, PLACED ON 3L 97%) TREATMENTS: IV ANTIBIOTICS (IV ROCEPHIN & AZITHROMYCIN 07/22 - PRESENT) SUPPLEMENTAL OXYGEN (2-3L NC, 07/22 - PRESENT) SERIAL CXR'S THANK YOU! Pat (This form is maintained as a part of the permanent medical record) 2015 [employer]. All Rights Reserved Pat Salgado RN, BSN [email or web address] Office: [phone] [facility]OSPITALMarycarmen
[2017-07-23] MEDS: Dextrose 5 %-0.45 % NaCl 1,000 ML IV SCH (18:17)
[2017-07-24 04:47] LABS: #Basophils 0.1 thou/uL (0.0-0.2); #Eosinphils 0.4 thou/uL (0.0-0.7); #Lymphocytes 3.4 thou/uL (1.20-3.40); #Monocytes 0.8 thou/uL (0.11-0.59); #Neutrophils 4.3 thou/uL (1.40-6.50); %Basophils 0.9 % (0.0-1.0); %Monocytes 8.7 % (0.0-10.0); %Neutrophils 48.4 % (42.0-75.0); Hemoglobin 10.3 g/dL (12.0-16.0); Mean Corpuscular HGB CONC 32.2 g/dL (32.0-36.0); Mean Corpuscular Hemoglobin 30.4 pg (27.0-31.0); Mean Corpuscular Volume 94.3 fl (81.0-99.0); Mean Platelet Volume 6.9 fL (7.4-10.4); Platelet Count 218 thou/uL (130-400); RBC Distribution Width 13.8 % (11.5-14.5); White Blood Cell (WBC) Count 8.9 thou/uL (4.8-10.8)
[2017-07-24 04:57] LABS: ALT (SGPT) 9 U/L (8-55); AST (SGOT) 17 U/L (5-34); Albumin 3.2 g/dL (3.4-4.8); Alkaline Phosphatase 69 U/L (40-150); Anion Gap 10 mmol/L (10-20); BUN (Urea Nitrogen) 11 mg/dL (9.8-20.1); Bilirubin, Total 0.4 mg/dL (0.2-1.2); Calc. Creatinine Clearance 46 mL/min (70-130); Calcium 8.7 mg/dL (7.8-10.44); Carbon Dioxide 29 mmol/L (23-31); Chloride 101 mmol/L (98-107); Estimated GFR-MDRD 74; Globulin 3.1 g/dL (2.4-3.5); Glucose 195 mg/dL (83-110); Potassium 3.8 mmol/L (3.5-5.1); Protein, Total 6.3 g/dL (6.0-8.3); Sodium 136 mmol/L (136-145)
[2017-07-24] MEDS: Azithromycin 500 MG in Sodium Chloride 0.9% 250 ML 250 ML IVPB SCH (05:00)
[2017-07-24] MEDS: cefTRIAXone\\ROCEPHIN 1 GM in Syringe 10 ML SLOW IVP SCH (08:18)
[2017-07-24] MEDS: Heparin 5,000 UNITS/ML VIAL SC SCH ×3 (08:18→20:07)
[2017-07-24] MEDS: Docusate 100 MG CAP PO SCH ×3 (08:18→20:09)
[2017-07-24] MEDS ORDERED: metFORMIN 500 MG TAB PO SCH (13:00)
[2017-07-24] MEDS: Dextrose 5 %-0.45 % NaCl 1,000 ML IV SCH (13:55)
[2017-07-24] MEDS: Cefdinir 300 MG CAP PO SCH (20:06)
[2017-07-25 05:36] LABS: #Eosinphils 0.5 thou/uL (0.0-0.7); #Lymphocytes 3.2 thou/uL (1.20-3.40); #Monocytes 0.8 thou/uL (0.11-0.59); #Neutrophils 5.3 thou/uL (1.40-6.50); %Basophils 0.5 % (0.0-1.0); %Eosinophils 4.7 % (0.0-10.0); %Lymphocytes 32.4 % (21.0-51.0); %Monocytes 8.1 % (0.0-10.0); %Neutrophils 54.3 % (42.0-75.0); Hemoglobin 11.8 g/dL (12.0-16.0); Mean Corpuscular HGB CONC 32.3 g/dL (32.0-36.0); Mean Corpuscular Volume 92.9 fl (81.0-99.0); Mean Platelet Volume 7.1 fL (7.4-10.4); Platelet Count 250 thou/uL (130-400); RBC Distribution Width 13.7 % (11.5-14.5); Red Blood Cell (RBC) Count 3.94 mill/uL (4.20-5.40); White Blood Cell (WBC) Count 9.8 thou/uL (4.8-10.8)
[2017-07-25 06:04] LABS: Anion Gap 10 mmol/L (10-20); BUN (Urea Nitrogen) 12 mg/dL (9.8-20.1); Calc. Creatinine Clearance 44 mL/min (70-130); Carbon Dioxide 31 mmol/L (23-31); Chloride 101 mmol/L (98-107); Estimated GFR-MDRD 71; Glucose 197 mg/dL (83-110); Potassium 4.9 mmol/L (3.5-5.1); Sodium 137 mmol/L (136-145)
[2017-07-25] MEDS ORDERED: metFORMIN 500 MG TAB PO SCH (08:00)
[2017-07-25] MEDS ORDERED: Azithromycin 250 MG TAB PO SCH (09:00)
[2017-07-25] MEDS: Cefdinir 300 MG CAP PO SCH (09:01)
[2017-07-25] MEDS: Docusate 100 MG CAP PO SCH (09:01)
[2017-07-25] MEDS: Heparin 5,000 UNITS/ML VIAL SC SCH ×2 (09:01→14:13)
[2017-07-25 11:34] VITALS: BP 154/89; TEMP 98.4
[2017-07-25] MEDS: Dextrose 5 %-0.45 % NaCl 1,000 ML IV SCH (12:08)
--- NOTE | 2017-07-25 12:26 | DIS ---
FINAL DIAGNOSES: 1. Pneumonia. 2. Hypertension. 3. Urinary tract infection. 4. Non-insulin dependent diabetes mellitus. COMPLICATIONS: None. PROCEDURES: None. CONSULTANTS: None. HOSPITAL COURSE: This is a pleasant female who presents to the hospital and was found to have pneumo armida and UTI. She was started on IV antibiotics. She was started on IV fluids. She was started on b reathing treatments. Her home medication resumed. The patient's chest x-ray showed improvement. He r lab showed a white blood to be 14.2, upon dismissal was 9.8. Her hemoglobin was 11.8. Her blood s ugar was 197. She was eating well. She was breathing better. She did not want to go to a nursing h ome. She did want to go back home where her family would help take care of her. Therefore, she was discharged home 07/25/2017 with discharge medications. DISCHARGE MEDICATIONS: 1. Omnicef 300 mg b.i.d. #20. 2. Z-BENJA take as directed. 3. She would also continue her aspirin 81 mg every day. 4. Coreg 12.5 mg b.i.d. 5. Vitamin D2 50,000 units every week. 6. Glyburide 5 mg every day. 7. Claritin 10 mg every day. FOLLOWUP: She will follow up in 1 week or prior to that if she has any complications. The patient v erbalized understanding and all questions answered to satisfaction. Total time spent with this patient was 30 minutes. This is ANÍBAL Walls, dictating for Johnny Rose M.D.
== END 2017-07-25 16:01 | disposition home health service (06) | DRG 689 ==
LOC: ERS 23:59 → 2NO 07-22 02:27
PROVIDERS: ADMIT Internal Medicine; ATTEND Internal Medicine
DX: N39.0 Urinary tract infection, site not specified (principal); J18.9 Pneumonia, unspecified organism; T68.XXXA Hypothermia, initial encounter; E11.649 Type 2 diabetes mellitus with hypoglycemia without coma; I10 Essential (primary) hypertension; E55.9 Vitamin D deficiency, unspecified; Z88.5 Allergy status to narcotic agent; R09.02 Hypoxemia; I25.10 Atherosclerotic heart disease of native coronary artery without angina pectoris; Z95.1 Presence of aortocoronary bypass graft
CPT/HCPCS: 36415; 36416; 71045; 80048; 80053; 81003; 81015; 82550; 83605; 85025; 87040; 94640; 96361; 96374; 96375; A4216; G8978-GP-CK; G8979-GP-CJ; J0360; J0456; J0696; J1644; J7050; J7620

== ENCOUNTER 2018-01-16 00:28 | Inpatient (IN) | payer MEDICARE ==
[2018-01-16 01:12] LABS: #Lymphocytes 2.4 thou/uL (1.20-3.40); #Monocytes 0.9 thou/uL (0.11-0.59); #Neutrophils 7.5 thou/uL (1.40-6.50); %Basophils 0.2 % (0.0-1.0); %Eosinophils 0.3 % (0.0-10.0); %Lymphocytes 21.7 % (21.0-51.0); %Monocytes 8.4 % (0.0-10.0); %Neutrophils 69.4 % (42.0-75.0); Hemoglobin 12.3 g/dL (12.0-16.0); Mean Corpuscular HGB CONC 34.2 g/dL (32.0-36.0); Mean Corpuscular Hemoglobin 30.7 pg (27.0-31.0); Mean Corpuscular Volume 89.8 fL (78.0-98.0); Mean Platelet Volume 6.7 fL (7.4-10.4); Platelet Count 194 thou/uL (130-400); RBC Distribution Width 13.6 % (11.5-14.5); Red Blood Cell (RBC) Count 4.01 mill/uL (4.20-5.40); White Blood Cell (WBC) Count 10.8 thou/uL (4.8-10.8)
[2018-01-16 01:38] LABS: ALT (SGPT) 19 U/L (8-55); AST (SGOT) 57 U/L (5-34); Albumin 3.5 g/dL (3.4-4.8); Alkaline Phosphatase 94 U/L (40-150); Anion Gap 17 mmol/L (10-20); BUN (Urea Nitrogen) 21 mg/dL (9.8-20.1); CK (CPK) 1364 U/L (29-168); Calc. Creatinine Clearance 0 mL/min (70-130); Calcium 9.4 mg/dL (7.8-10.44); Carbon Dioxide 22 mmol/L (23-31); Chloride 103 mmol/L (98-107); Estimated GFR-MDRD 59; Globulin 3.8 g/dL (2.4-3.5); Glucose 119 mg/dL (83-110); Magnesium 1.5 mg/dL (1.6-2.6); Potassium 4.1 mmol/L (3.5-5.1); Protein, Total 7.3 g/dL (6.0-8.3); Sodium 138 mmol/L (136-145)
[2018-01-16 01:40] LABS: Troponin I 0.063 ng/mL (< 0.028)
[2018-01-16] MEDS ORDERED: Magnesium Sulfate 2 GM/100 ML BAG ONE (02:02)
[2018-01-16 02:10] LABS: Bilirubin Negative (Negative); Blood, Urine Moderate (Negative); Clarity TURBID (Clear); Glucose, Urine (Dipstick) Negative (Negative); Leukocyte Large (Negative); Nitrite Negative (Negative); Protein, Urine (Dipstick) Trace mg/dL (Neg-Trace); Specific Gravity, Urine 1.014 (1.002-1.036); Urobilinogen 0.2 mg/dL (0.2-1.0)
[2018-01-16 02:13] LABS: Bacteria/HPF 4+ HPF (None Seen); RBC/HPF 0-3 HPF (0-3); Squamous Epithelial 0-3 HPF (0-3)
[2018-01-16 02:19] LABS: Pathc Cast-AUWi Flag 8.86 (0-2.49)
[2018-01-16 02:32] LABS: Other Casts/LPF None Seen LPF (0-3 Hyaline)
[2018-01-16] MEDS ORDERED: cefTRIAXone\\ROCEPHIN 1 GM VIAL ONE (03:06)
[2018-01-16 04:09] LABS: Lactic Acid 1.5 mmol/L (0.5-2.2)
[2018-01-16 05:23] VITALS: BMI 21.2
[2018-01-16 06:28] LABS: Troponin I 0.105 ng/mL (< 0.028)
[2018-01-16] MEDS ORDERED: Acetaminophen 325 MG TAB PO PRN (08:30)
[2018-01-16] MEDS ORDERED: glyBURIDE 5 MG TAB PO SCH (08:30)
[2018-01-16 08:37] LABS: Troponin I 0.087 ng/mL (< 0.028)
--- NOTE | 2018-01-16 08:50 | CT ---
PRELIMINARY REPORT/[facility]/EMERGENTY AFTER-HOURS PROCEDURE CT Head Without Intravenous Contrast EXAM DATE/TIME: 01/16/2018 1:18 AM CLINICAL HISTORY: 82 years old, female; Injury or trauma; Fall; Initial encounter; Abrasion; Not specified; Patient HX: Fell earlier today. No complaints at this time. 1l ns. TECHNIQUE: Axial computed tomography images of the head/brain without intravenous contrast. COMPARISON: No relevant prior studies available. FINDINGS: Brain: Focal encephalomalacia involving right temporal lobe. No evidence of acute intracranial hemorr red, extraxial fluid or midline shift. Mild low density changes within the white matter bilaterally. Cerebellum atrophic; otherwise, posterior fossa structures within normal limits. Ventricles: Mild prominence of the cerebral sulci and ventricles. Bones/joints: Normal. No acute fracture. Sinuses: Mild bilateral maxillary sinus fluid/soft tissue. Mastoid air cells: Normal as visualized. No mastoid effusion. Soft tissues: Normal. IMPRESSION: 1. No evidence of acute intracranial hemorrhage, extraxial fluid or midline shift. 2. Mild cerebral atrophy. 3. 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 4. Mild bilateral maxillary sinus fluid/soft tissue. Thank you for allowing us to participate in the care of your patient. Dictated and Authenticated by: Lolis Chand MD 01/16/2018 2:09 AM Central Time ([place] & [place]) FINAL REPORT CT BRAIN WITHOUT CONTRAST: Date: 01/16/18 FINDING/IMPRESSION: I agree with the preliminary report given by Rubi. POS: [facility]
--- NOTE | 2018-01-16 09:52 | RAD ---
PORTABLE AP CHEST RADIOGRAPH: Date: 01-16-18 History: Injury after a fall. Comparison: 07-22-17 FINDINGS: This exam is obtained with patient in kyphotic position and swallow depth of inspiration which accent uates the bronchovascular markings. There are linear bibasilar densities which may relate to either m ild scarring or atelectasis. Parenchymal changes within the lungs have improved from prior exam. Card iac silhouette and bronchovascular markings are accentuated due to technique and patient positioning. Post-surgical changes related to median sternotomy are noted. Surgical clips overlie the right upper quadrant. There is osteopenia. Calcifications are seen adjacent to the right humeral head which may be related to calcific peritendinitis. Vascular calcification of the thoracic aorta. Remote left uppe r rib fractures present. IMPRESSION: 1. Bibasilar atelectasis and/or scarring. 2. Osteopenia. POS: [facility]
[2018-01-16] MEDS: Carvedilol 3.125 MG TAB PO SCH ×2 (09:57→21:37)
[2018-01-16] MEDS: cefTRIAXone\\ROCEPHIN 1 GM in Sodium Chloride 0.9% 100 ML IVPB SCH (09:57)
--- NOTE | 2018-01-16 10:19 | RAD ---
LEFT HIP TWO VIEWS: HISTORY: Fall. Left hip pain. FINDINGS: No definite fracture or dislocation is seen in the left hip. If there is high clinical suspicion for fracture, further evaluation with CT scan should be performed. There is a fracture involving the right inferior pubic ramus. POS: [facility]
--- NOTE | 2018-01-16 10:33 | RAD ---
RIGHT SHOULDER THREE VIEWS: HISTORY: An 82-year-old female with a history of right shoulder pain, following a fall from trauma. FINDINGS: There is some bone demineralization and degenerative changes. Prominent focal area of calcific perit endinosis over the greater tuberosity. 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 No acute fracture or dislocation. POS: [facility]
[2018-01-16] MEDS ORDERED: Dextrose 50% Abboject 50 ML SYRINGE IVP PRN (12:04)
[2018-01-16] MEDS ORDERED: Dextrose 5% in Water 1,000 ML IV PRN (12:04)
[2018-01-16] MEDS ORDERED: Insulin Regular 300 UNITS/3 ML VIAL SC PRN (12:04)
--- NOTE | 2018-01-16 19:23 | RAD ---
ONE VIEW PELVIS: 01/16/18 HISTORY: Fracture. COMPARISON: Two views left hip, 01/16/18 FINDINGS: Right inferior pubic ramus fracture is noted. There is some periosteal reaction suggesting a chronic process. Correlate for point tenderness. Remainder of the bony pelvis is intact. Sacroiliac joints ar e patent and symmetric. Sacral ala are preserved. Unremarkable left and right hip on this single proj ection. IMPRESSION: Right inferior pubic ramus fracture with some periosteal reaction suggesting a chronic process. Corre late clinically. POS: [facility]
[2018-01-16] MEDS: Atorvastatin Calcium 10 MG TAB PO SCH (21:37)
--- NOTE | 2018-01-16 22:17 | CON ---
DATE OF CONSULTATION: 01/16/2018 HISTORY OF PRESENT ILLNESS: We were asked to see patient for a fracture of the right inferior pubic ramus. The patient resting in bed in no acute distress. Stated she fell; when we asked how many sharlene es she has fallen, this is the second time. She is not a frequent ambulator and gets around with a w alker and a wheelchair more so than the walker. She did not lose consciousness and states the pain i s quite mild. No problems in the lower extremities. Sensations are intact and she is moving okay. PAST MEDICAL HISTORY: Diabetes, hypertension, kidney problems. PAST SURGICAL HISTORY: Appendix; coronary artery bypass graft, 4-vessel surgery; cholecystectomy; to nsils; neck surgery. SOCIAL HISTORY: Retired, nonsmoker, nondrinker. ALLERGIES: CODEINE. CURRENT MEDICATIONS: Carvedilol, aspirin, glyburide, vitamin D. REVIEW OF SYSTEMS: Patient has few complaints. She is tired. Denies any chest pain or shortness of breath. She is moving her lower extremities well. Rest of review of systems negative. PHYSICAL EXAMINATION: GENERAL: A well-nourished female resting in bed, in room 283. Speech clear, fluent, answering quest ions well, oriented. HEENT: Normal exam. Face symmetric, tongue midline. EXTREMITIES: Upper extremities, equal size, shape, symmetry, normal bulk and tone. Lower extremitie s, equal size, shape, symmetry, normal bulk and tone. PELVIS: We pushed on the patient's pelvis and rocked her hips and she did not complain about signifi cant pain, but when we really pressed down on her right groin area, she did wince a little bit and th is was painful. IMAGING: X-rays show a right inferior pubic ramus fracture. PLAN: The patient is having minimal pain. We will have physical therapy get her up, weightbearing a s tolerated, and see how she does. She may need to continue with a walker and wheelchair, which is a normal routine. We will check on her to see if there are any other issues. If she has more pain wh en she gets up, we will see. A pelvis x-ray has been ordered. We will check in on patient as needed . She should follow up in our clinic in 3-4 weeks. Gagandeep Lorenzo PA-C., dictating for Eric Duvall M.D.
--- NOTE | 2018-01-16 23:03 | HP ---
DATE OF ADMISSION: 01/16/2018 CHIEF COMPLAINT: Dizziness, fall, fracture, and UTI. HISTORY OF PRESENT ILLNESS: The patient is an 82-year-old female who has refused multiple times to h ave placement where close care could be taken of her. When she did not her son's phone calls the [facility] before admission, he went over to check her and found her on the floor in the restroom. She state s that she became dizzy and fallen and hurt to stand and she could not get up. She has been on for a pproximately 2 hours when EMS arrived and brought her to the emergency room for further evaluation. There, she was noted to have a urinary tract infection, slightly elevated troponin I's, and creatine kinase and a fractured right pelvis rami. Blood sugar at the time of admission was 119. PAST MEDICAL HISTORY: Significant for non-insulin dependent diabetes, hypertension, vitamin D defici ency, cardiomyopathy, coronary artery disease, history of multiple falls. PAST SURGICAL HISTORY: Includes cholecystectomy, appendectomy, coronary artery bypass graft, carotid endarterectomy, tonsillectomy, and appendectomy. MEDICATIONS: Include glyburide 5 mg daily, aspirin 81 mg daily, Coreg 25 mg b.i.d., vitamin D 92501 units a week. SOCIAL HISTORY: Does not smoke or drink or use illicit drugs. Lives alone despite multiple attempts at fdc placement due to multiple histories of falls. ALLERGIES: She is allergic to CODEINE. REVIEW OF SYSTEMS: Patient denies any fever, fatigue, dyspnea. HEENT: Denies any discharge or pain from the eyes, ears, nose or throat. Neck: Supple. Denies lymphadenopathy or painful range of mot ion. Chest: Denies cough or shortness of breath. Cardiovascular: Denies chest pain or palpitation s. Gastrointestinal: Denies nausea, vomiting, diarrhea. : Denies dysuria or blood in urine or s tool. Musculoskeletal: Currently has a lot of pain generally in her hips after the fall and her rig ht shoulder. Skin: No rashes or lesions. Lymphatics: Denies any swelling or nodules. Psychiatric : Denies any symptoms of depression or anxiety. PHYSICAL EXAMINATION: VITAL SIGNS: On admission, blood pressure 134/61, pulse 72, respirations 16, temperature 97.6 and sh e weighs 101 pounds 14 ounces. GENERAL: This is an elderly, alert and responsive female. HEENT: Normocephalic and atraumatic. Pupils with diminished reactivity to light at 2 mm each with a rcus senilis bilaterally. TMs, nares, pharynx are clear. NECK: Supple, nontender. Normal range of motion present. HEART: Clear to auscultation. BACK: Without tenderness or lesions. Right shoulder with bruising and tenderness. CHEST: Clear to auscultation. HEART: Regular rate and rhythm without murmur. ABDOMEN: Soft, nontender, without organomegaly. GENITOURINARY: Deferred. BREASTS: Deferred. EXTREMITIES: Without clubbing, cyanosis, or edema. Muscular wasting generally noted. SKIN: Poor turgor. No acute rashes or lesions aside from the bruising at the right shoulder from th e fall. NEUROLOGIC: Cranial nerves are intact. Unable to test gait and cerebellar function at this time. S ensory exam is intact. Mental status significant for vague memory of what brought her to the hospita l, aside from the fall, she cannot clearly put into words why she fell. LABORATORY AND X-RAY FINDINGS: Lab work on admission showed WBCs at 10.8, hemoglobin 12.3, hematocri t 36.0 with platelets at 194. Sodium is 138, potassium 4.2, chloride 103, CO2 is 22, BUN 21, creatin ine 0.92 with a GFR of 59, glucose of 119, magnesium 1.5. Alkaline phosphatase high at 57. Creatine kinase elevated at 1364 with troponins are indeterminate at 0.63. UA shows too numerous to count wb c's, large esterase leukocytes. Chest x-ray shows bibasilar atelectasis and/or scarring with osteope armida, no acute findings. Hip x-ray shows fracture involving the right inferior pubic ramus. ASSESSMENT: 1. Multiple falls. 2. Fractured right pubic ramus. 3. Ovm-ktrbocn-xpxudylnl diabetes. 4. Indeterminate troponins. 5. Mild dementia. 6. Urinary tract infection. PLAN: Orthopedic consultation. IV antibiotics to treat UTI and eventual placement if possible.
[2018-01-17 05:26] LABS: Hemoglobin A1c 6.3 % (4.0-6.0)
[2018-01-17 05:29] LABS: #Basophils 0.1 thou/uL (0.0-0.2); #Eosinphils 0.2 thou/uL (0.0-0.7); #Lymphocytes 3.6 thou/uL (1.20-3.40); #Monocytes 0.9 thou/uL (0.11-0.59); #Neutrophils 6.2 thou/uL (1.40-6.50); %Basophils 0.6 % (0.0-1.0); %Eosinophils 1.4 % (0.0-10.0); %Lymphocytes 32.8 % (21.0-51.0); %Monocytes 8.2 % (0.0-10.0); %Neutrophils 56.9 % (42.0-75.0); Hemoglobin 10.3 g/dL (12.0-16.0); Mean Corpuscular Hemoglobin 30.8 pg (27.0-31.0); Mean Corpuscular Volume 90.4 fL (78.0-98.0); Mean Platelet Volume 6.8 fL (7.4-10.4); Platelet Count 194 thou/uL (130-400); RBC Distribution Width 13.9 % (11.5-14.5); Red Blood Cell (RBC) Count 3.35 mill/uL (4.20-5.40); White Blood Cell (WBC) Count 10.9 thou/uL (4.8-10.8)
[2018-01-17 05:40] LABS: Anion Gap 13 mmol/L (10-20); BUN (Urea Nitrogen) 24 mg/dL (9.8-20.1); Calc. Creatinine Clearance 42 mL/min (70-130); Calcium 8.4 mg/dL (7.8-10.44); Carbon Dioxide 23 mmol/L (23-31); Cardiac Risk 3.7 (Less than 4.5); Chloride 102 mmol/L (98-107); Cholesterol 92 mg/dl (< 200 Desired); Estimated GFR-MDRD 71; HDL Cholesterol 25 mg/dL (>60 Neg Risk); LDL Cholesterol, Calculated 46 mg/dL; Potassium 3.4 mmol/L (3.5-5.1); Sodium 135 mmol/L (136-145); Triglycerides 104 mg/dL (Less than 150)
[2018-01-17 05:45] LABS: Glucose 48 mg/dL (83-110)
[2018-01-17] MEDS ORDERED: glyBURIDE 5 MG TAB PO SCH (07:30)
[2018-01-17] MEDS: Carvedilol 3.125 MG TAB PO SCH ×2 (08:24→20:22)
[2018-01-17] MEDS: cefTRIAXone\\ROCEPHIN 1 GM in Sodium Chloride 0.9% 100 ML IVPB SCH (08:31)
[2018-01-17] MEDS ORDERED: Prevnar 13-Val Conj/PF 0.5 ML SYRINGE IM ONE (09:00)
[2018-01-17] MEDS: Atorvastatin Calcium 10 MG TAB PO SCH (20:21)
[2018-01-18 05:32] LABS: Anion Gap 15 mmol/L (10-20); BUN (Urea Nitrogen) 16 mg/dL (9.8-20.1); Calc. Creatinine Clearance 43 mL/min (70-130); Calcium 8.7 mg/dL (7.8-10.44); Carbon Dioxide 24 mmol/L (23-31); Chloride 103 mmol/L (98-107); Estimated GFR-MDRD 73; Glucose 103 mg/dL (83-110); Potassium 3.7 mmol/L (3.5-5.1); Sodium 138 mmol/L (136-145)
[2018-01-18] MEDS ORDERED: glyBURIDE 2.5 MG TAB PO SCH (07:30)
[2018-01-18] MEDS: Carvedilol 3.125 MG TAB PO SCH (08:23)
[2018-01-18] MEDS: cefTRIAXone\\ROCEPHIN 1 GM in Sodium Chloride 0.9% 100 ML IVPB SCH (08:24)
--- NOTE | 2018-01-18 15:13 | EKG ---
Test Reason : Blood Pressure : / mmHG Vent. Rate : 082 BPM Atrial Rate : 082 BPM P-R Int : 000 ms QRS Dur : 126 ms QT Int : 430 ms P-R-T Axes : 000 -09 -13 degrees QTc Int : 502 ms Wide QRS rhythm Right bundle branch block Inferior infarct , age undetermined Abnormal ECG Confirmed by SUKI MARTIN DO ([id number]), medical editor JOSH APPLE ([id number]) on 01/18/2018 3:13:03 PM Referred By: Confirmed By:SUKI MARTIN DO
[2018-01-18 17:56] VITALS: BP 125/72; TEMP 97.8
--- NOTE | 2018-01-20 05:32 | DIS ---
DATE OF INITIAL OBSERVATION: 01/16/2018 DATE OF DISCHARGE: 01/18/2018 CHIEF COMPLAINT ON ADMISSION: Fall, weakness, and fractured right pubic ramus. History and physical have been dictated. I will resume from there. HOSPITAL COURSE: The patient was transferred up from the emergency room to a telemetry bed, where every heart beat was monitored, vital signs were monitored , and assessment of pain was dealt with. Over the next 24 hours, the patient did well. Orthopedic consultation was obtained from Gagandeep Lorenzo, who was representing Dr. Duvall. He felt that the patient was having minimal pain and with physical therapy getting her up with as tolerated weightbearing, she should be able to go to rehab uneventfully fairly quickly. The patient was able to get up and ambulate. Her pain was manageable over the next 24 hours. During this time, she had one hypoglycemic episode that was due to her receiving a whole glyburide 5 mg instead of a half a tablet (2.5 mg), which was her usual dose, such that her blood sugar at one point did go down to 48 on . She felt fine during this time. The nurses gave her food and at the next check, it had come up to 94. Her hemoglobin A1c during this hospitalization came back at 6.3 indicating very good diabetic control overall. Cholesterol 92, LDL 46 with an HDL of 25, triglycerides at 104. We were able to arrange inpatient rehabilitation for this patient at [facility] and on 01/18/2018, she was able to be transferred there in stable condition. DISCHARGE DIAGNOSES: The diagnoses at the time of discharge was, 1. Right ramus fracture. 2. Ogc-nporarl-voqazvzgf diabetes mellitus, stable. 3. General weakness. 4. Hypoglycemia due to overmedication with glyburide. This was corrected while in the hospital by halving the dose. 5. Urinary tract infection, found incidentally due to Klebsiella pneumoniae. The patient was transferred in stable condition. She will follow up with Dr. Rose 1 week after release from rehabilitation. DISCHARGE MEDICATIONS: Her medication at the time of discharge include nitrofurantoin 100 mg b.i.d. for 7 days for the urinary tract infection; benazepril 2.5 mg daily as a protective mechanism for her kidneys, being a diabetic; atorvastatin 5 mg at bedtime, simply as a protective mechanism for coronary artery disease and being a diabetic. Her carvedilol has been increased from 12.5 to 25 mg b.i.d. due to episodes of high blood pressure while hospitalized. The time required to review the chart, examining the patient, answering her questions, and then preparing for discharge with reconciling all her medication and transfer paperwork took 30 minutes. She was transferred in stable condition. TERRY
== END 2018-01-18 17:50 | DRG 536 ==
LOC: ERS 00:28 → 2NO 04:16
PROVIDERS: ADMIT Specialist; ATTEND Specialist
DX: S32.89XA Fracture of other parts of pelvis, initial encounter for closed fracture (principal); N39.0 Urinary tract infection, site not specified; I42.9 Cardiomyopathy, unspecified; M62.82 Rhabdomyolysis; W18.30XA Fall on same level, unspecified, initial encounter; Y92.012 Bathroom of single-family (private) house as the place of occurrence of the external cause; E11.9 Type 2 diabetes mellitus without complications; I10 Essential (primary) hypertension; E55.9 Vitamin D deficiency, unspecified; I25.10 Atherosclerotic heart disease of native coronary artery without angina pectoris; Z91.81 History of falling; Z95.1 Presence of aortocoronary bypass graft; Z79.84 Long term (current) use of oral hypoglycemic drugs; Z79.82 Long term (current) use of aspirin; Z88.5 Allergy status to narcotic agent; F03.90 Unspecified dementia, unspecified severity, without behavioral disturbance, psychotic disturbance, mood disturbance, and anxiety; T38.3X1A Poisoning by insulin and oral hypoglycemic [antidiabetic] drugs, accidental (unintentional), initial encounter; E09.649 Drug or chemical induced diabetes mellitus with hypoglycemia without coma; Y92.230 Patient room in hospital as the place of occurrence of the external cause; B96.1 Klebsiella pneumoniae [K. pneumoniae] as the cause of diseases classified elsewhere
CPT/HCPCS: 36415; 36416; 51702; 70450; 71045; 72170; 80048; 80053; 80061; 81003; 81015; 82550; 83036; 83605; 83735; 84100; 84484; 85025; 87077; 87086; 87186; 90471; 90670; 93005; 96361; 96365; 96367; A4216; A4353; G0009; G8978-GP-CK; G8979-GP-CJ; J0696; J1815; J3475; J7050

== ENCOUNTER 2018-02-07 23:53 | Emergency (ER) | payer MEDICARE ==
[2018-02-08 00:23] LABS: Bilirubin Negative (Negative); Blood, Urine Negative (Negative); Clarity CLEAR (Clear); Glucose, Urine (Dipstick) Negative (Negative); Leukocyte Trace (Negative); Nitrite Negative (Negative); Protein, Urine (Dipstick) Negative (Neg-Trace); Specific Gravity, Urine 1.006 (1.002-1.036); Urobilinogen 0.2 mg/dL (0.2-1.0); pH, Urine 7.5 (5.0-9.0)
[2018-02-08 00:28] LABS: Bacteria/HPF 3+ HPF (None Seen); Hyaline Casts/LPF 0-3 HYALINE CAST LPF (0-3 Hyaline); Pathc Cast-AUWi Flag 0.58 (0-2.49); RBC/HPF None Seen HPF (0-3); Squamous Epithelial 0-3 HPF (0-3)
[2018-02-08 00:47] LABS: #Basophils 0.1 thou/uL (0.0-0.2); #Eosinphils 0.3 thou/uL (0.0-0.7); #Lymphocytes 2.8 thou/uL (1.20-3.40); #Monocytes 0.6 thou/uL (0.11-0.59); %Basophils 0.5 % (0.0-1.0); %Eosinophils 2.6 % (0.0-10.0); %Lymphocytes 26.2 % (21.0-51.0); %Monocytes 5.8 % (0.0-10.0); %Neutrophils 64.9 % (42.0-75.0); Mean Corpuscular HGB CONC 31.4 g/dL (32.0-36.0); Mean Corpuscular Hemoglobin 28.3 pg (27.0-31.0); Mean Corpuscular Volume 90.1 fL (78.0-98.0); Mean Platelet Volume 6.8 fL (7.4-10.4); Platelet Count 260 thou/uL (130-400); RBC Distribution Width 14.8 % (11.5-14.5); Red Blood Cell (RBC) Count 3.88 mill/uL (4.20-5.40); White Blood Cell (WBC) Count 10.7 thou/uL (4.8-10.8)
[2018-02-08 00:51] LABS: ALT (SGPT) 15 U/L (8-55); AST (SGOT) 42 U/L (5-34); Albumin 3.6 g/dL (3.4-4.8); Alkaline Phosphatase 99 U/L (40-150); Anion Gap 16 mmol/L (10-20); BUN (Urea Nitrogen) 17 mg/dL (9.8-20.1); Bilirubin, Total 0.5 mg/dL (0.2-1.2); Calc. Creatinine Clearance 0 mL/min (70-130); Carbon Dioxide 25 mmol/L (23-31); Chloride 97 mmol/L (98-107); Estimated GFR-MDRD 67; Globulin 3.7 g/dL (2.4-3.5); Glucose 100 mg/dL (83-110); Potassium 4.3 mmol/L (3.5-5.1); Protein, Total 7.3 g/dL (6.0-8.3); Sodium 134 mmol/L (136-145)
[2018-02-08 00:53] LABS: CKMB 1.4 ng/mL (0-6.6); Troponin I Less than 0.010 ng/mL (< 0.028)
[2018-02-08] MEDS ORDERED: cefTRIAXone\\ROCEPHIN 1 GM VIAL ONE (01:21)
--- NOTE | 2018-02-08 08:35 | RAD ---
PORTABLE CHEST: Date: 02/07/18 PROVIDED CLINICAL HISTORY: Dyspnea. FINDINGS: Comparison with 01/23/18. Cardiac and mediastinal silhouette is unchanged in appearance. Patchy bibasilar parenchymal opacity i s noted which may be on the basis of subsegmental atelectasis or infiltrate. The lungs are hypoinflat ed. Median sternotomy changes and atherosclerosis are seen. No evidence for pleural effusion or pneum othorax. IMPRESSION: Hypoinflated exam. Follow-up PA and lateral views of chest are recommended. POS: [facility]
--- NOTE | 2018-02-15 12:19 | EKG ---
Test Reason : Blood Pressure : / mmHG Vent. Rate : 089 BPM Atrial Rate : 089 BPM P-R Int : 164 ms QRS Dur : 086 ms QT Int : 354 ms P-R-T Axes : 023 -17 001 degrees QTc Int : 430 ms Normal sinus rhythm Minimal voltage criteria for LVH, may be normal variant Borderline ECG Confirmed by ANTIONE ARMIJO ([id number]), movie editor GILBERT DECKER ([id number]) on 02/15/2018 12:19:09 PM Referred By: Confirmed By:ANTIONE ARMIJO
== END 2018-02-08 01:45 | disposition home or self-care (01) ==
LOC: ERS 23:53
DX: N39.0 Urinary tract infection, site not specified (principal); R10.12 Left upper quadrant pain; R06.00 Dyspnea, unspecified; E11.9 Type 2 diabetes mellitus without complications; I10 Essential (primary) hypertension; Z79.891 Long term (current) use of opiate analgesic; Z79.899 Other long term (current) drug therapy; Z79.82 Long term (current) use of aspirin
CPT/HCPCS: 36415; 51701; 71045; 80053; 81003; 81015; 82553; 83605; 83880; 84484; 85025; 87040; 87077; 87086; 87186; 93005; 96374; A4353; J0696

== ENCOUNTER 2018-02-10 15:33 | Inpatient (IN) | payer MEDICARE ==
[~2018-02-10 15:33] MED LIST: ISOVUE-370 76%-LOCM 1 ML ONE
--- NOTE | 2018-02-10 16:28 | RAD ---
PA AND LATERAL CHEST: Date: 02/10/18 HISTORY: Dyspnea, shortness of breath with exertion, recently diagnosed UTI. COMPARISON: 02/07/18. FINDINGS: Postsurgical changes related to CABG are again noted. Cardiac silhouette is stable in size and does a ppear mildly enlarged. There is bibasilar atelectasis versus scarring. No consolidation or pleural fl uid is seen. Dense vascular calcification seen in the thoracic and abdominal aorta. There is a remote left-sided rib fracture again seen. There are multiple compression fractures involving thoracic, as well as visualized upper lumbar vertebral bodies of indeterminate age. Surgical clips overlie the rig ht upper quadrant. Osteopenia is present. There are calcifications adjacent to each humeral head, whi ch may related to calcific peritendinitis. IMPRESSION: 1. Multiple compression fractures involving the thoracic, as well as visualized upper lumbar vertebr al bodies of indeterminate age. There is a vertebra plana type deformity involving a lower thoracic v ertebral body with exaggerated kyphosis at this level. 2. Bibasilar atelectasis and/or scarring. 3. Remote left-sided rib fracture. 4. No acute cardiopulmonary process. POS: [facility]
[2018-02-10 16:36] LABS: Mean Corpuscular HGB CONC 32.2 g/dL (32.0-36.0); Mean Corpuscular Hemoglobin 29.1 pg (27.0-31.0); Mean Corpuscular Volume 90.4 fL (78.0-98.0); Mean Platelet Volume 6.9 fL (7.4-10.4); Platelet Count 230 thou/uL (130-400); Red Blood Cell (RBC) Count 3.44 mill/uL (4.20-5.40); White Blood Cell (WBC) Count 9.6 thou/uL (4.8-10.8)
[2018-02-10 16:55] LABS: Anisocytosis SLIGHT = 6-15 cells (100X) (0-5/hpf); Band 15 % (5-11); Eosinophils 2 % (0-10); Lymphocytes 15 % (21-51); MDiff Complete? YES; Monocytes 12 % (0-10); Neutrophil 56 % (42-75); PLT Morphology Comment Appears Adequate; Polychromasia SLIGHT = 2-3 cells (100X) (0-2/hpf)
[2018-02-10 16:56] LABS: ALT (SGPT) 15 U/L (8-55); AST (SGOT) 36 U/L (5-34); Albumin 3.4 g/dL (3.4-4.8); Alkaline Phosphatase 88 U/L (40-150); Anion Gap 14 mmol/L (10-20); BUN (Urea Nitrogen) 16 mg/dL (9.8-20.1); Bilirubin, Total 0.5 mg/dL (0.2-1.2); CK (CPK) 38 U/L (29-168); Calc. Creatinine Clearance 0 mL/min (70-130); Calcium 9.7 mg/dL (7.8-10.44); Carbon Dioxide 28 mmol/L (23-31); Chloride 96 mmol/L (98-107); Estimated GFR-MDRD 65; Globulin 3.5 g/dL (2.4-3.5); Potassium 4.2 mmol/L (3.5-5.1); Protein, Total 6.9 g/dL (6.0-8.3); Sodium 134 mmol/L (136-145)
[2018-02-10 17:00] LABS: Glucose 58 mg/dL (83-110)
[2018-02-10 17:05] LABS: CKMB 1.8 ng/mL (0-6.6); Troponin I Less than 0.010 ng/mL (< 0.028)
[2018-02-10] MEDS ORDERED: Dextrose 50% Abboject 50 ML SYRINGE ONE (17:25)
[2018-02-10 17:51] LABS: Bilirubin Negative (Negative); Blood, Urine Negative (Negative); Clarity CLEAR (Clear); Glucose, Urine (Dipstick) Negative (Negative); Leukocyte Negative (Negative); Nitrite Negative (Negative); Protein, Urine (Dipstick) Negative (Neg-Trace); Specific Gravity, Urine 1.004 (1.002-1.036); Urobilinogen 0.2 mg/dL (0.2-1.0)
[2018-02-10 19:53] LABS: Troponin I Less than 0.010 ng/mL (< 0.028)
[2018-02-10] MEDS ORDERED: Acetaminophen 325 MG TAB PO PRN (20:36)
[2018-02-10] MEDS ORDERED: Ondansetron HCl/PF 4 MG/2 ML Vial IVP PRN (20:36)
[2018-02-10] MEDS ORDERED: Ondansetron ODT 4 MG TAB SL PRN (20:36)
[2018-02-10] MEDS ORDERED: Fentanyl 100 MCG/2 ML VIAL SLOW IVP PRN (20:37)
--- NOTE | 2018-02-10 21:12 | CT ---
CT ANGIO CHEST PERFORMED WITH INTRAVENOUS CONTRAST ENHANCEMENT WITH 3D RECONSTRUCTIONS: HISTORY: Increasing shortness of breath. The patient fell approximately a month ago and has been reporting in creasing shortness of breath today. COMPARISON: A previous CT of the neck that was performed on 08/11/[address] of the chest that was performed o n 08/08/2013. FINDINGS: There are bibasilar lung changes with a slightly more consolidated appearance to the changes within t he left lower lobe. Some of these changes were present on the prior 2013 study. They could represen t recurrent atelectasis and/or infiltrate or represent interstitial fibrotic lung change. There is f ullness in the azygoesophageal recess region, which appears to be largely related to a tortuous esoph boubacar. There is evidence of mediastinal adenopathy, which has definitely progressed, as compared to t he prior exam. Some of the right paratracheal nodes measure as much as 12 mm in size. There are als o prevascular and subcarinal nodes, as well as lymphadenopathy in the right hilar region. In addition, there is an enlarged node that is just lateral to the left lobe of the thyroid, measurin g as much as 2.8 cm in size. There is also right-sided neck lymphadenopathy and adenopathy that is m ore in the posterior triangular region of the lower neck, adjacent to the right paraspinal muscles. There is good pulmonary artery opacification. There is no CT evidence for pulmonary embolus. There are multilevel compression changes of the thoracic vertebral bodies. Not certain whether this is rel ated to pathologic type fractures related to metastatic disease or osteoporosis. There is a concerni ng appearance to more of a pathologic appearing fracture of the left eighth rib. There are soft tiss ue changes surrounding this. This is very suspicious for a neoplastic process. The right adrenal gland is normal in appearance. There is some fullness to the left adrenal gland, a nd there is what appears to be periaortic lymphadenopathy, partially visualized on this study. Also, some retrocrural lymph nodes. The visualized liver parenchyma shows no definite focal mass. The ga llbladder has been removed. IMPRESSION: 1. Concerning findings of neck, mediastinal and right hilar lymphadenopathy. This is concerning for a neoplastic process. There is also a pathologic fracture with surrounding soft tissue changes invo lving the left posterior eighth rib, and multilevel compression changes of the thoracic spine. 2. No CT evidence for pulmonary embolus. 3. Suggestion of abdominal lymphadenopathy, which would be better assessed with a complete abdomen CT. POS: [facility]
[2018-02-10 22:55] VITALS: BMI 21.6
[2018-02-10 22:56] LABS: Troponin I Less than 0.010 ng/mL (< 0.028)
[2018-02-11] MEDS ORDERED: HYDROcodone/Acetaminophen 5/325 mg Tablet PO PRN (00:30)
[2018-02-11] MEDS: Sodium Chloride 0.9% 1,000 ML IV SCH ×3 (01:07→22:26)
--- NOTE | 2018-02-11 01:31 | HP ---
DATE OF ADMISSION: 02/10/2018 CHIEF COMPLAINT: Multiple compression fractures with dyspnea and hypoxia. HISTORY OF PRESENT ILLNESS: The patient is an 82-year-old female who came by [facility] on 02/07 with the same complaints of dyspnea; however, at that time who had a urinary tract infection and gave her Rocephin antibiotics and sent her home. Since that time, she has remained dyspneic and her son brought her in today because she complained of having trouble breathing. On my interview in the [facility] room, she states that her main problem is her back pain and denies any trouble breathing. She is on oxygen and on O2 had been satting 89%. There is bibasilar atelectasis noted on her chest x-ray and he can hear the rub and rales when he listens clinically; however, she appears in no acute distr ess as she lies still in the bed. The patient's blood sugar was 58 and that the patient's son comes by twice a day to clean the patient and feet her and to empty her bedside commode. PAST MEDICAL HISTORY: Significant for multiple hospitalizations for falls. She recently had been ho spitalized with a pubic ramus fracture, requiring rehabilitation and she went home from rehab in [facility]. The patient's most recent hospitalization was 01/16/2018 for the aforementioned fractured pubic ramus. She has mild dementia, recurrent urinary tract infections, non-insulin dependent diabetes, hy pertension, vitamin D deficiency, cardiomyopathy, coronary artery disease. PAST SURGICAL HISTORY: Includes cholecystectomy, appendectomy, coronary artery disease with coronary artery bypass graft, carotid endarterectomy, tonsillectomy, and appendectomy. CURRENT MEDICATIONS: The patient's medication on admission: Carvedilol 25 mg b.i.d., aspirin 325 da telma, glyburide 5 mg once a day, and loratadine 10 mg once a day. ALLERGIES: CODEINE and CODEINE SULFATE. SOCIAL HISTORY: No smoking history. Denies alcohol or drug use. She lives alone. REVIEW OF SYSTEMS: The patient currently denies fevers, chills, but she has chronic diffuse pain maxwell ginating from her back. 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 Denies nasal drainage, sores, or pain. Respiratory: She is short-winded as one of her reasons for coming to the ER tonight, but denies cough. Cardiovascular: Denies chest pain or palpi tations. Musculoskeletal: She has severe back pain and hurts generally all over. Skin: No new jacky hes or lesions. Neurologic: She denies any headaches, paralysis, or paresthesias. Hemolymphatic: Denies any abnormal swelling, clotting, or bruising. Gastrointestinal: Denies any nausea, vomiting, or diarrhea. Genitourinary: Denies any blood in urine or stool or painful urination or defecation. PHYSICAL EXAMINATION: At the time of admission: VITAL SIGNS: She is afebrile. Her vital signs are currently stable with a pulse ox of 91-92% on 2 l iters O2. Her pain is at 6-7/10. GENERAL: This is an elderly cachectic Latin-Mos[place] female, alert, cooperative, oriented x2 negativ e on date. HEENT: Normocephalic, atraumatic with sunken temples. Eyes: Pupils are 1-2 mm bilaterally with dim inished reactivity to light. No icterus. Arcus senilis bilaterally. TMs, nares, pharynx are clear. NECK: Supple. CHEST: With bibasilar rales and atelectatic sounds that clear with deep breath and coughing. Her ba ck is painful and tender in the mid thoracic down to upper lumbar area. ABDOMEN: Soft, nontender. BREAST: Deferred. HEART: Regular rate and rhythm without murmur. GENITOURINARY: Deferred. EXTREMITIES: Without clubbing, cyanosis, or edema. Decreased range of motion noted. Symmetrical mu scular wasting in upper and lower extremities are noted. SKIN: With generally poor turgor. No recent bruising noted. NEUROLOGIC: Cranial nerves are intact except for vision in the left eye. Sensory exams grossly inta ct. Mental status is significant for diminished poor recent memory. Gait and cerebellar function un tested at this time. LABORATORY AND DIAGNOSTIC DATA: On admission, WBC 9.6, hemoglobin 10, hematocrit 31.1 with platelets at 230,000. Sodium 134, potassium 4.2, chloride 96, CO2 of 28, BUN 16, creatinine 0.84, glucose 58. AST at 36. Other liver functions are normal. Troponins are negative. BNP slightly elevated at 14 5. Urinalysis at this visit is negative. Chest x-ray shows bibasilar atelectasis, remote left-sided rib fractures, no acute coronary pulmonary process, multiple compression fractures involving thoraci c and upper lumbar spine, and age indeterminate. ASSESSMENT: 1. Dyspnea and hypoxia due to splinting probably from recent and remote rib fractures as well as mul tiple vertebral fractures. 2. Multiple vertebral compression fractures. 3. Hypoglycemia. 4. Malnutrition. 5. Recent urinary tract infection. 6. Status post multiple falls with recent pubic ramus fracture in 01/11. PLAN: Admit to the hospital, CT of the chest, physical therapy, and probable transfer to rehab for l [place]-term care if unable to get her to recuperate enough to go back living on her own, multiple attemp ts have been made at intermediate placement and these have been rejected by the patient and the son, but the son is now seen the necessity since she can no longer get up out of bed and care for herself that she may need placement.
[2018-02-11] MEDS ORDERED: Loratadine 10 MG TAB PO PRN (03:47)
[2018-02-11 05:27] LABS: Anion Gap 14 mmol/L (10-20); BUN (Urea Nitrogen) 12 mg/dL (9.8-20.1); Calc. Creatinine Clearance 44 mL/min (70-130); Carbon Dioxide 25 mmol/L (23-31); Cardiac Risk 5.4 (Less than 4.5); Chloride 102 mmol/L (98-107); Cholesterol 118 mg/dl (< 200 Desired); Estimated GFR-MDRD 74; Glucose 73 mg/dL (83-110); HDL Cholesterol 22 mg/dL (>60 Neg Risk); LDL Cholesterol, Calculated 63 mg/dL; Potassium 3.8 mmol/L (3.5-5.1); Sodium 137 mmol/L (136-145); Triglycerides 164 mg/dL (Less than 150)
[2018-02-11 05:49] LABS: Hemoglobin A1c 6.3 % (4.0-6.0)
[2018-02-11 06:11] LABS: Band 22 % (5-11); Eosinophils 3 % (0-10); Hemoglobin 9.6 g/dL (12.0-16.0); Lymphocytes 17 % (21-51); MDiff Complete? YES; Mean Corpuscular HGB CONC 32.1 g/dL (32.0-36.0); Mean Corpuscular Hemoglobin 29.5 pg (27.0-31.0); Mean Corpuscular Volume 91.9 fL (78.0-98.0); Monocytes 10 % (0-10); Neutrophil 48 % (42-75); Platelet Count 209 thou/uL (130-400); RBC Distribution Width 15.2 % (11.5-14.5); Red Blood Cell (RBC) Count 3.26 mill/uL (4.20-5.40); White Blood Cell (WBC) Count 9.3 thou/uL (4.8-10.8)
[2018-02-11] MEDS: Carvedilol 25 MG TAB PO SCH ×2 (08:51→21:07)
[2018-02-11] MEDS: Aspirin 81 mg Enteric Coated Tablet PO SCH (08:51)
[2018-02-11] MEDS ORDERED: Lisinopril 2.5 MG TAB PO SCH (09:00)
[2018-02-11] MEDS ORDERED: ISOVUE-370 76%-LOCM 1 ML ONE (09:05)
--- NOTE | 2018-02-11 16:56 | CT ---
CT OF ABDOMEN AND PELVIS PERFORMED WITH INTRAVENOUS CONTRAST ENHANCEMENT: 02/11/18 HISTORY: Adenopathy noted in the upper abdomen on a previous chest CT. This is being done for complete evaluat ion of this finding. Lung bases shows small bilateral pleural effusions with bibasilar atelectasis, slightly greater withi n the left base. The liver, spleen, and pancreas regions appear unremarkable. The gallbladder has been removed. Right and left adrenal glands are normal. There is cortical scarring involving the left kidney which is also mildly atrophic. There is extensive adenopathy within the abdomen. There is marked mesenteric adenopathy with soft tis aissatou mass surrounding the mesenteric vessels. This measures approximately 4.5 x 9.8 cm in transverse a nd AP dimensions. In addition to this more matted lymphadenopathy, there are other smaller more dista l mesenteric nodes. There is also adenopathy at the gastrohepatic ligament and peripancreatic area, a lso extensive aortocaval as well as some periaortic adenopathy. CT OF PELVIS PERFORMED WITH CONTRAST ENHANCEMENT: There is sigmoid diverticulosis. There is some free fluid seen. There is enlarged inguinal nodes. The largest node is a very large right inguinal node which is somewhat bilobed in shape. It measures 6.6 cm in maximum length. Moderate sigmoid diverticulosis is noted. Review of osseous structures show diffuse bony demineralization. There is a pathologic fracture invol ving the left inferior pubic ramus with surrounding soft tissue mass. There is multilevel compression changes of the lumbar vertebral bodies. IMPRESSION: Extensive abdominal adenopathy including retrocrural, peripancreatic, gastrohepatic ligament, periaor tic, aortocaval and mesenteric adenopathy as well as inguinal adenopathy. These changes would suggest an entity such as lymphoma. Somewhat unusual feature for lymphoma are some of the bony changes with compression changes in multiple vertebral body levels and a pathologic appearing fracture of the righ t inferior pubic ramus. Multiple myeloma would be a possibility although adenopathy not typical. The area most accessible for biopsy would probably be one of the right inguinal lymph nodes. POS: [facility]
[2018-02-11] MEDS: Lisinopril 20 MG TAB PO SCH (21:06)
[2018-02-11] MEDS: Simvastatin 5 MG TAB PO SCH (21:07)
[2018-02-12] MEDS ORDERED: Ondansetron HCl/PF 4 MG/2 ML Vial IVP SCH (08:15)
[2018-02-12] MEDS: Sodium Chloride 0.9% 1,000 ML IV SCH ×2 (08:41→22:14)
[2018-02-12] MEDS: Carvedilol 25 MG TAB PO SCH ×2 (08:44→22:13)
[2018-02-12] MEDS: Aspirin 81 mg Enteric Coated Tablet PO SCH (08:45)
[2018-02-12] MEDS: Lisinopril 20 MG TAB PO SCH ×2 (08:46→22:13)
[2018-02-12] MEDS ORDERED: Lidocaine 1% PF 5 ML VIAL ONE (10:40)
[2018-02-12] MEDS ORDERED: Ondansetron HCl/PF 4 MG/2 ML Vial SLOW IVP PRN (14:00)
--- NOTE | 2018-02-12 14:38 | PQF ---
CLINICAL DOCUMENTATION IMPROVEMENT CLARIFICATION FORM: ICD-10 Updated PLEASE DO AN ADDENDUM TO THE PROGRESS NOTE WITH ANY DOCUMENTATION UPDATES OR ADDITIONS AND CARRY THROUGH TO DC SUMMARY. THANK YOU. Date: 02/12 ATTN: DR. JEANNE ANDINO Please exercise your independent, professional judgment in responding to the clarification form. Clinical indicators are provided on the bottom of this form for your review. Please check appropriate box(s): [ x ] Protein Calorie Malnutrition: [ ] Mild [ x ] Moderate [ ] Severe [ ] Other Malnutrition (please specify) __ [x ] Cachexia [ ] Other diagnosis [ ] Unable to determine CLINICAL INDICATORS - SIGNS / SYMPTOMS / LABS BMI: 21.6 PHYSICIAN H&P DOCUMENTATION 02/10: PHYSICAL EXAMINATION: GENERAL: THIS IS AN ELDERLY CACHECTIC LATIN-EQUATORIAL GUINEAN FEMALE; EXTREMITIES: SYMMETRICAL MUSCULAR WASTING TO UPPER & LOWER EXTREMITIES ARE NOTED ASSESSMENT: 4) MALNUTRITION NUTRITION ASSOCIATE DOCUMENTATION 02/11: FINDINGS: TEMPORALIS MUSCLE WASTING NOTED, B LE TRACE EDEMA NUTRITION ASSOCIATE NUTRITION DIAGNOSIS: MALNUTRITION EVIDENCED BY PATIENT REPORT OF LOSING WEIGHT RECENTLY, DIARRHEA, & RISK FACTORS INCLUDING HX FALLS, AGE, & MILD DEMENTIA RISK FACTORS: WEIGHT LOSS PER PATIENT DIARRHEA MILD DEMENTIA TREATMENT: NUTRITION ASSOCIATE CONSULT NUTRITIONAL SUPPLEMENT (BOOST GLUCOSE CONTROL BID AFTER MEALS, 02/11 - PRESENT) Moderate Malnutrition (in acute illness) Energy Intake: <75% of estimated energy requirement for > 7 days Weight Loss: 1-2%/1 week; 5%/ 1 month; 7.5%/3 months Other: mild body fat loss; mild muscle mass loss; mild fluid accumulation; Severe Malnutrition (in acute illness) Energy Intake: < 50% of estimated energy requirement for > 5 days Weight Loss: >1-2%/1 week; >5%/1 month; >7.5%/3 months Other: moderate body fat loss; moderate muscle mass loss; moderate- severe fluid accumulation; 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 Pat (This form is maintained as a part of the permanent medical record) 2014 [employer]. All Rights Reserved Pat Salgado RN, BSN [email or web address] Office: [phone] [facility] HOSPITALMarycarmen
--- NOTE | 2018-02-12 15:15 | ULT ---
ULTRASOUND GUIDED LYMPH NODE BIOPSY 02/12/18 HISTORY: Biopsy. COMPARISON: CT prior day. FINDINGS: The patient is brought to the Ultrasound Suite. Questions were answered. Informed consent was obtaine d. Timeout performed. The patient's right groin was prepped and draped in the normal sterile fashion. 2 mL of buffered lido brook was instilled into the superficial soft tissues. Using a 20 gauge Temno needle, total of six 2 cm cores were obtained. Patient tolerated the procedure well without complications. IMPRESSION: Technically successful ultrasound guided lymph node biopsy. POS: [facility]
[2018-02-12] MEDS: Simvastatin 5 MG TAB PO SCH (22:13)
[2018-02-13] MEDS: Sodium Chloride 0.9% 1,000 ML IV SCH ×5 (05:12→20:26)
[2018-02-13] MEDS: Aspirin 81 mg Enteric Coated Tablet PO SCH (09:23)
[2018-02-13] MEDS: Lisinopril 20 MG TAB PO SCH ×2 (09:23→20:25)
[2018-02-13] MEDS: Carvedilol 25 MG TAB PO SCH ×2 (09:26→20:24)
[2018-02-13] MEDS: Simvastatin 5 MG TAB PO SCH (20:26)
[2018-02-14] MEDS: Lisinopril 20 MG TAB PO SCH ×2 (08:16→20:28)
[2018-02-14] MEDS: Carvedilol 25 MG TAB PO SCH ×2 (08:16→20:28)
[2018-02-14] MEDS: Aspirin 81 mg Enteric Coated Tablet PO SCH (08:16)
[2018-02-14] MEDS: Amlodipine 10 MG TAB PO SCH (10:45)
[2018-02-14] MEDS: Sodium Chloride 0.9% 1,000 ML IV SCH ×2 (14:58→20:27)
[2018-02-14] MEDS: Simvastatin 5 MG TAB PO SCH (20:26)
[2018-02-15 04:44] LABS: #Basophils 0.1 thou/uL (0.0-0.2); #Eosinphils 0.2 thou/uL (0.0-0.7); #Lymphocytes 2.9 thou/uL (1.20-3.40); #Monocytes 0.6 thou/uL (0.11-0.59); #Neutrophils 6.2 thou/uL (1.40-6.50); %Basophils 0.6 % (0.0-1.0); %Eosinophils 2.1 % (0.0-10.0); %Lymphocytes 29.4 % (21.0-51.0); %Monocytes 5.8 % (0.0-10.0); %Neutrophils 62.1 % (42.0-75.0); Hemoglobin 9.6 g/dL (12.0-16.0); Mean Corpuscular HGB CONC 31.8 g/dL (32.0-36.0); Mean Corpuscular Hemoglobin 29.1 pg (27.0-31.0); Mean Corpuscular Volume 91.3 fL (78.0-98.0); Mean Platelet Volume 7.3 fL (7.4-10.4); Platelet Count 168 thou/uL (130-400); RBC Distribution Width 15.3 % (11.5-14.5)
[2018-02-15 04:52] LABS: Anion Gap 12 mmol/L (10-20); BUN (Urea Nitrogen) 6 mg/dL (9.8-20.1); Calc. Creatinine Clearance 50 mL/min (70-130); Calcium 8.8 mg/dL (7.8-10.44); Carbon Dioxide 28 mmol/L (23-31); Chloride 97 mmol/L (98-107); Estimated GFR-MDRD 87; Glucose 144 mg/dL (83-110); Potassium 3.3 mmol/L (3.5-5.1); Sodium 134 mmol/L (136-145)
[2018-02-15] MEDS: Amlodipine 10 MG TAB PO SCH (08:45)
[2018-02-15] MEDS: Carvedilol 25 MG TAB PO SCH ×2 (08:45→20:22)
[2018-02-15] MEDS: Aspirin 81 mg Enteric Coated Tablet PO SCH (08:45)
[2018-02-15] MEDS: Lisinopril 20 MG TAB PO SCH ×2 (08:45→20:22)
[2018-02-15] MEDS: Enoxaparin Sodium 40 MG/0.4 ML SYRINGE SC SCH ×2 (08:54→12:57)
[2018-02-15] MEDS: Simvastatin 5 MG TAB PO SCH (20:22)
[2018-02-16] MEDS: Aspirin 81 mg Enteric Coated Tablet PO SCH (08:14)
[2018-02-16] MEDS: Carvedilol 25 MG TAB PO SCH ×2 (08:14→20:25)
[2018-02-16] MEDS: Amlodipine 10 MG TAB PO SCH (08:14)
[2018-02-16] MEDS: Enoxaparin Sodium 40 MG/0.4 ML SYRINGE SC SCH (08:14)
[2018-02-16] MEDS: Lisinopril 20 MG TAB PO SCH ×2 (08:14→20:24)
[2018-02-16] MEDS: Simvastatin 5 MG TAB PO SCH (20:25)
[2018-02-17] MEDS: Lisinopril 20 MG TAB PO SCH ×2 (08:02→19:45)
[2018-02-17] MEDS: Aspirin 81 mg Enteric Coated Tablet PO SCH (08:02)
[2018-02-17] MEDS: Carvedilol 25 MG TAB PO SCH ×2 (08:03→19:46)
[2018-02-17] MEDS: Amlodipine 10 MG TAB PO SCH (08:03)
[2018-02-17] MEDS: Enoxaparin Sodium 40 MG/0.4 ML SYRINGE SC SCH (12:10)
[2018-02-17] MEDS: Simvastatin 5 MG TAB PO SCH (19:46)
--- NOTE | 2018-02-18 08:12 | PQF ---
CLINICAL DOCUMENTATION IMPROVEMENT CLARIFICATION FORM: ICD-10 Updated PLEASE DO AN ADDENDUM TO THE PROGRESS NOTE WITH ANY DOCUMENTATION UPDATES OR ADDITIONS AND CARRY THROUGH TO DC SUMMARY. THANK YOU. DATE: 02/18 ATTN: DR. JEANNE ANDINO Please exercise your independent, professional judgment in responding to the clarification form. Clinical indicators are provided on the bottom of this form for your review. Please check appropriate box(s): [ x ] Acute Respiratory Failure: [ x ] with Hypoxia [ ] with Hypercapnia [ ] Acute On Chronic Respiratory Failure: [ ] with Hypoxia [ ] with Hypercapnia [ x ] Acute Respiratory Failure due to: (etiology) early CAP __ [ ] Chronic Respiratory Failure only [ ] with Hypoxia [ ] with Hypercapnia [ x ] Other diagnosis __atelectasis [ ] Unable to determine For continuity of documentation, please document condition throughout progress notes and discharge summary. Thank You. CLINICAL INDICATORS - SIGNS / SYMPTOMS / LABS ER PHYSICIAN DOCUMENTATION 02/10: PATIENT PRESENTS FOR SHORTNESS OF BREATH W/ EXERTION; MILD RESPIRATORY DISTRESS REQUIRING 3L O2 D/T 87% ROOM AIR, NOT NORMALLY REQUIRING OXYGEN. CXR 02/10: BIBASILAR ATELECTASIS AND/OR SCARRING PHYSICIAN H&P DOCUMENTATION 02/10: ON OXYGEN - 02 SAT 89%; BIBASILAR ATELECTASIS NOTED ON CXR; BIBASILAR RALES & ATELECTASIS SOUNDS; DYSPNEA & HYPOXIA D/T SPLINTING PROBABLY FROM RECENT & REMOTE RIB FRACTURES WELL MULTIPLE VERTEBRAL FRACTURES PN 02/10 - 02/15: OXYGEN WAS 1-3L NC; PN 02/16 & : OXYGEN NOW 3.5L NC NURSES NOTES 02/15: PT DOESN'T WEAR 02 AT HOME; TRIED ON RA, DROPPED INTO LOWER 80'S, UPPER 70'S. PATIENT REASSESSED & PLACED BACK ON 02, PT SATURATED AT 94% RISK FACTORS: RECENT RIB FRACTURES PROGRESSIVE SHORTNESS OF BREATH COPD TREATMENT: SUPPLEMENTAL OXYGEN (02/10 - PRESENT) CTA CHEST/THORAX (02/10) THANK YOU! Pat (This form is maintained as a part of the permanent medical record) 2014 [employer]. All Rights Reserved Pat Salgado RN, BSN [email or web address] Office: [phone] [facility]
[2018-02-18] MEDS: Aspirin 81 mg Enteric Coated Tablet PO SCH (08:16)
[2018-02-18] MEDS: Lisinopril 20 MG TAB PO SCH ×2 (08:16→20:36)
[2018-02-18] MEDS: Amlodipine 10 MG TAB PO SCH (08:16)
[2018-02-18] MEDS: Carvedilol 25 MG TAB PO SCH ×2 (08:16→20:36)
[2018-02-18] MEDS: Enoxaparin Sodium 40 MG/0.4 ML SYRINGE SC SCH (13:08)
[2018-02-18] MEDS: Simvastatin 5 MG TAB PO SCH (20:37)
[2018-02-19 07:38] VITALS: TEMP 98.8
[2018-02-19] MEDS: Aspirin 81 mg Enteric Coated Tablet PO SCH (08:41)
[2018-02-19] MEDS: Lisinopril 20 MG TAB PO SCH (08:43)
[2018-02-19] MEDS: Carvedilol 25 MG TAB PO SCH (08:43)
[2018-02-19] MEDS: Amlodipine 10 MG TAB PO SCH (08:43)
[2018-02-19 08:44] VITALS: BP 67/43
== END 2018-02-19 11:06 | DRG 516 ==
LOC: ERS 15:33 → 2NO 18:39 → T4-B 02-11 01:41
PROVIDERS: ADMIT Specialist; ATTEND Specialist
PROC: 07BH3ZX Excision of Right Inguinal Lymphatic, Percutaneous Approach, Diagnostic (ICD-10-PCS; principal; 2018-02-12)
DX: S32.000A Wedge compression fracture of unspecified lumbar vertebra, initial encounter for closed fracture (principal); S22.000A Wedge compression fracture of unspecified thoracic vertebra, initial encounter for closed fracture; R64 Cachexia; E44.0 Moderate protein-calorie malnutrition; I42.9 Cardiomyopathy, unspecified; C85.90 Non-Hodgkin lymphoma, unspecified, unspecified site; Z68.21 Body mass index [BMI] 21.0-21.9, adult; Z91.81 History of falling; Z87.440 Personal history of urinary (tract) infections; I25.10 Atherosclerotic heart disease of native coronary artery without angina pectoris; Z95.1 Presence of aortocoronary bypass graft; F03.90 Unspecified dementia, unspecified severity, without behavioral disturbance, psychotic disturbance, mood disturbance, and anxiety; E11.65 Type 2 diabetes mellitus with hyperglycemia
CPT/HCPCS: 36415; 36416; 38505; 51701; 71045; 71046; 71275; 74177; 80048; 80053; 80061; 81003; 81015; 82553; 83036; 83605; 83880; 84484; 85025; 87040; 87077; 87086; 87186; 88184; 88305; 88341; 88342; 88360; 93005; 94760; 96361; 96374; A4216; A4353; G8978-GP-CM; G8979-GP-CL; J0696; J1650; J2001; J2405

== ENCOUNTER 2018-02-22 09:51 | Inpatient (IN) | payer MEDICARE ==
[2018-02-22 10:48] LABS: Bilirubin Small (Negative); Blood, Urine Negative (Negative); Clarity CLOUDY (Clear); Glucose, Urine (Dipstick) Negative (Negative); Leukocyte Negative (Negative); Nitrite Negative (Negative); Protein, Urine (Dipstick) Negative (Neg-Trace); Specific Gravity, Urine 1.016 (1.002-1.036); Urobilinogen 0.2 mg/dL (0.2-1.0)
--- NOTE | 2018-02-22 11:13 | RAD ---
AP CHEST: History: Dyspnea. Date: 02-22-18 Comparison: 02-07-18 FINDINGS: AP chest demonstrates sternotomy wires seen. Cardiomegaly noted. Bilateral pleural effusions seen. There is interval development of areas of airspace opacities in both lung bases compatible with bibas ilar atelectasis or pneumonia. IMPRESSION: Interval development of bilateral pleural effusions and bibasilar opacities concerning for atelectasi s or pneumonia. POS: [facility]
[2018-02-22 11:20] LABS: Band 21 % (5-11); Hemoglobin 6.3 g/dL (12.0-16.0); Lymphocytes 34 % (21-51); MDiff Complete? YES; Mean Corpuscular HGB CONC 32.2 g/dL (32.0-36.0); Mean Corpuscular Hemoglobin 29.4 pg (27.0-31.0); Mean Corpuscular Volume 91.2 fL (78.0-98.0); Mean Platelet Volume 8.2 fL (7.4-10.4); Metamyelocyte 2 % (0-0); Monocytes 5 % (0-10); Myelocyte 2 % (0-0); Neutrophil 36 % (42-75); Platelet Count 136 thou/uL (130-400); RBC Distribution Width 15.9 % (11.5-14.5); Red Blood Cell (RBC) Count 2.15 mill/uL (4.20-5.40); White Blood Cell (WBC) Count 17.3 thou/uL (4.8-10.8)
[2018-02-22 11:23] LABS: ALT (SGPT) 12 U/L (8-55); AST (SGOT) 39 U/L (5-34); Albumin 2.8 g/dL (3.4-4.8); Alkaline Phosphatase 92 U/L (40-150); Anion Gap 20 mmol/L (10-20); BUN (Urea Nitrogen) 58 mg/dL (9.8-20.1); Bilirubin, Total 0.4 mg/dL (0.2-1.2); Calc. Creatinine Clearance 0 mL/min (70-130); Calcium 9.2 mg/dL (7.8-10.44); Carbon Dioxide 24 mmol/L (23-31); Chloride 88 mmol/L (98-107); Estimated GFR-MDRD 42; Globulin 2.6 g/dL (2.4-3.5); Glucose 245 mg/dL (83-110); Potassium 4.9 mmol/L (3.5-5.1); Protein, Total 5.4 g/dL (6.0-8.3); Sodium 127 mmol/L (136-145)
[2018-02-22 11:33] LABS: CKMB 0.8 ng/mL (0-6.6); Troponin I Less than 0.010 ng/mL (< 0.028)
[2018-02-22] MEDS ORDERED: Pantoprazole 40 MG VIAL ONE (12:10)
[2018-02-22] MEDS ORDERED: Vancomycin HCl 1 GM in Premix Bag 1 BAG IVPB SCH (12:30)
[2018-02-22] MEDS ORDERED: Sodium Chloride 0.9% 100 ML ONE (12:31)
[2018-02-22] MEDS ORDERED: Piperacillin/Tazobactam 3.375 GM VIAL ONE (12:31)
--- NOTE | 2018-02-22 13:00 | PDOC.FPRHP ---
- History of Present Illness Chief Complaint: Lethargy and hypoxia History of Present Illness: This is a 83 yo female with a PMH of HTN, DM, CAD s/p CABG who presents to the ED from the [facility]. Reportedly, pt. was hypoxic and lethargic this morning and was sent over the the hospital. Pt. reports she was feeling bad but has very little complaints at this time. ED reported a melanic stool. Pt. was recently diagnosed with B cell lymphoma. Pt. recently was discharged from [facility] on the with an admission diagnosis of dyspnea and hypoxia 2/2 recent rib and vertebral fractures. - Allergies/Adverse Reactions Allergies Allergy/AdvReac Type Severity Reaction Status Date / Time codeine Allergy Intermediate Emesis Verified 08/08/13 17:40 - Home Medications Medication Instructions Recorded Confirmed Type Carvedilol [Coreg] 25 mg PO BID 08/14/13 02/22/18 History Acetaminophen [Tylenol Regular 650 mg PO Q6H PRN tab 01/18/18 02/22/18 Rx Strength] Aspirin [Aspirin Chewable Tablet] 81 mg PO DAILY tab 01/18/18 02/22/18 Rx glyBURIDE [Diabeta] 2.5 mg PO QAM-WM #0 01/18/18 02/22/18 Rx Acetaminophen With Codeine 1 tablet PO Q4HR PRN 02/19/18 02/22/18 History [Tylenol with Codeine #3] Amlodipine [Norvasc] 10 mg PO DAILY 02/19/18 02/22/18 History Lisinopril 20 mg PO BID 02/19/18 02/22/18 History Loratadine [Claritin] 10 mg PO DAILY PRN 02/19/18 02/22/18 History Simvastatin [Zocor] 5 mg PO HS 02/19/18 02/22/18 History Ipratropium/Albuterol Sulfate 3 ml NEB QID PRN 02/22/18 02/22/18 History [Duoneb] - History PMHx:Hx of falls, pubic ramus fractur, mild dementia, recurrent UTIs,on-insulin diabetes, HTN, vitamin D deficiency, cardiomyopathy, CAD PSHx: cholesystectomy, appendecotmy, CAD s/p CABG, carotid endarterectomy, tonsillecotmy, appendectomy FHx: none contributory Social: Denies T/A/D - Review of Systems General: denies: fever/chills, weight/appetite/sleep changes Eyes: denies: eye pain, vision changes ENT: denies: nasal congestion, rhinorrhea Respiratory: denies: cough, congestion, shortness of breath Cardiovascular: denies: chest pain, palpitation Gastrointestinal: reports: GI bleeding (Pt. denies, family is unaware, ER reports melanic stool). denies: nausea, vomiting, diarrhea, constipation Genitourinary: denies: incontinence, dysuria Skin: denies: rashes, lesions Musculoskeletal: denies: pain, tenderness Neurological: denies: numbness, syncope Psychological: denies: anxiety, depression - Vital signs BP: 108/53 HR: 71 RR: 22 Tmax: 98.1 Pox: 95% on 2L NC - Physical Exam Constitutional: NAD, awake, alert and oriented, other (Pt. would appear to doze off but would open eyes to voice) HEENT: EOMI, MMM -HEENT: pin point pupils, non-reactive Neck: FROM, trachea midline Heart: RRR, normal S1/S2, other (Systolic murmur) Lungs: good air movement, other (Crackles in mid and lower lungs) Abdomen: soft, non-tender, bowel sounds present, no hernias Musculoskeletal: normal tone, ROM grossly normal Neurological: no focal deficit, CN II-XII intact Skin: capillary refill <2 seconds Heme/Lymphatic: no unusual bruising or bleeding FMR H&P: Results - Labs Result Diagrams: 02/22/18 10:50 02/22/18 10:50 Lab results: WBC 17.3 thou/uL (4.8-10.8) H 02/22/18 10:50 Hgb 6.3 g/dL (12.0-16.0) L 02/22/18 10:50 Hct 19.6 % (36.0-47.0) L 02/22/18 10:50 MCV 91.2 fL (78.0-98.0) 02/22/18 10:50 Plt Count 136 thou/uL (130-400) 02/22/18 10:50 Band Neuts % (Manual) 21 % (5-11) H 02/22/18 10:50 Sodium 127 mmol/L (136-145) L 02/22/18 10:50 Potassium 4.9 mmol/L (3.5-5.1) 02/22/18 10:50 Chloride 88 mmol/L (98-107) L 02/22/18 10:50 Carbon Dioxide 24 mmol/L (23-31) 02/22/18 10:50 BUN 58 mg/dL (9.8-20.1) H 02/22/18 10:50 Creatinine 1.22 mg/dL (0.6-1.1) H 02/22/18 10:50 Glucose 245 mg/dL (83-110) H 02/22/18 10:50 Calcium 9.2 mg/dL (7.8-10.44) 02/22/18 10:50 Total Bilirubin 0.4 mg/dL (0.2-1.2) 02/22/18 10:50 AST 39 U/L (5-34) H 02/22/18 10:50 ALT 12 U/L (8-55) 02/22/18 10:50 Alkaline Phosphatase 92 U/L (40-150) 02/22/18 10:50 CK-MB (CK-2) 0.8 ng/mL (0-6.6) 02/22/18 10:50 B-Natriuretic Peptide 199.0 pg/mL (0-100) H 02/22/18 10:50 Serum Total Protein 5.4 g/dL (6.0-8.3) L 02/22/18 10:50 Albumin 2.8 g/dL (3.4-4.8) L 02/22/18 10:50 Urine Ketones Negative mg/dL (Negative) 02/22/18 10:33 Urine Blood Negative (Negative) 02/22/18 10:33 Urine Nitrite Negative (Negative) 02/22/18 10:33 Ur Leukocyte Esterase Negative (Negative) 02/22/18 10:33 FMR H&P: A/P - Problem List (1) Acute blood loss anemia Current Visit: Yes Status: Acute Code(s): D62 - ACUTE POSTHEMORRHAGIC ANEMIA (2) B-cell lymphoma Current Visit: Yes Status: Acute Code(s): C85.10 - UNSPECIFIED B-CELL LYMPHOMA, UNSPECIFIED SITE (3) CAD (coronary artery disease) Current Visit: Yes Status: Acute Code(s): I25.10 - ATHSCL HEART DISEASE OF [place] CORONARY ARTERY W/O ANG PCTRS (4) Recurrent UTI Current Visit: No Status: Acute Code(s): N39.0 - URINARY TRACT INFECTION, SITE NOT SPECIFIED (5) Diabetes Current Visit: No Status: Chronic Code(s): E11.9 - TYPE 2 DIABETES MELLITUS WITHOUT COMPLICATIONS (6) HTN (hypertension) Current Visit: No Status: Chronic Code(s): I10 - ESSENTIAL (PRIMARY) HYPERTENSION - Plan This is a 83 yo female PMH of HTN, DM, CAD s/p CABG Dyspnea likely 2/2 HAP vs. anemia -Pt. has recent hospitalization 3 days ago and had CXR consistent with PNA. We are starting her on Vanc, zosyn, and levoquin to treat HAP. Procalcitonin is pending. We also have PRN Acute blood loss anemia -Pt. has reported melena. Hgb dropped from 9.6 to 6.3 in one week. We suspect an upper GI bleed and have consulted Dr. Cisneros. She is receiving 2 units of blood currently and we will monitor her progress. B cell lymphoma -Aware, encouraged oupt oncology consult Recurrent UTI -UA negative DM II -ACHS accuchecks, SSI HTN -Continue home meds, hold lisinopril CAD -Continue Home meds, hold aspirin Code: full Prophylaxis: protonix Family: son at bedside Disposition: home in 2-3 days FMR H&P: Upper Level - Pertinent history 83 yo female with multiple chronic conditions presents for evaluation of SOB. Patient has been in and out of the hospital since December 2017. Patient regularly sees Dr. Rose as an outpatient and was recently hospitalized under his care in January 2018. Patient was seen by Dr. Delgado in the [place]. Patient' s son states that she has been weaker and has not been able to take care of herself. [place] reports states patient was more lethargic and not as responsive as normal and that the patient needed to be transferred to ED for evaluation. ED reports melanotic and black stools. Patient was recently diagnosed with B cell lymphoma at last hospitalization. She has yet to see a Attending Ambulatory Care or Chips Screen Tender. Patient denies fevers, chills, chest pain, sob, n/v/d, cough, or recent illness. ROS: General: NAD HEENT: Denies sinus congestion, vision changes CV: Denies chest pain, palpitations Respiratory: Per senior care increased O2 requirements. No subjective SOB MSK: Denies erythema/edema to joints GI: Denies nausea, vomiting, diarrhea Neuro: Denies unilateral weakness, headaches, vision changes. Psych: Denies anxiety & Depression Physical Exam: General: NAD HEENT: pinpoint pupils, no JVD CV: 2/6 systolic murmur present. RRR Respiratory: Crackles bilateral bases, no wheezes MSK: No joint tenderness, moves all four extremities GI: Soft non tender, non distended Neuro: No focal deficits Psych: A&O x4 - Plan Date/Time: 02/22/18 2407 I, Darwin Ellington , have evaluated this patient and agree with findings/ plan as outlined by international organizer resident. Pertinent changes/additions are listed here. 1. Acute Blood Loss anemia - Likely secondary to GI bleed - Tranfuse 2u pRBC - Trend CBC 2. Acute Hypoxic Respiratory Failure possibly due to Hospital acquired Pneumonia - Does not use O2 at home - Currently 2L NC - Continue O2 supplementation - Continue antibiotics until ruled out. 3. GI bleed - Bloody/melanotic stools - Stool Guiac - GI consult 4. B cell lymphoma - Likely contributing to anemia - Recent biopsy diagnosis - Consult hematology 5. Cardiomyopathy - Suspected from History - 2/6 murmur - last echo in 04/2017 showed EF 55-60% 6. DM2 - accuchecks - Continue home regimen - SSI as needed 7. HTN - Borderline Hypotension - Hold Home BP meds for now 8. CAD - Reported history - Continue home meds - Heart healthy Diet CODE STATUS: FULL CODE PCP: Dr. Johnny Rose Disposition: Guarded, Will admit to Telemetry services and gather more information. Attending Addendum - Attending Addendum Date/Time: 02/22/18 4553 I personally evaluated the patient and discussed the management with Dr. Suggs. I agree with the History, Examination, Assessment and Plan documented above with any addition or exceptions noted below. The patient was sent to the ER for lethargy and hypoxia. She was found to be anemic and had a melanotic stool in the ER. Pt also has pneumonia on chest xr. Will consult GI. Transfuse 2 units PRBC's. Trend hemoglobin. Will treat with broad spectrum IV antibiotics.
[2018-02-22] MEDS ORDERED: Acetaminophen 325 MG TAB PO PRN (13:59)
[2018-02-22] MEDS ORDERED: Ondansetron HCl/PF 4 MG/2 ML Vial IVP PRN (13:59)
[2018-02-22] MEDS ORDERED: Ondansetron ODT 4 MG TAB PO PRN (13:59)
[2018-02-22] MEDS ORDERED: Dextrose 5% in Water 1,000 ML IV PRN (15:30)
[2018-02-22] MEDS ORDERED: HumaLOG 300 UNITS/3 ML VIAL SC PRN (15:30)
[2018-02-22 15:34] LABS: Actual Bicarbonate (HCO3a) 26.9 mEq/L (22-28); Base Excess (BEa) 2.7 mEq/L (-2.0 to +3.0); CO2 Tension 39.8 mmHg (35.0-45.0); O2 Tension (PaO2) 80.2 mmHg (> 60.0); pH, Arterial 7.45 (7.35-7.45)
[2018-02-22 15:35] LABS: Analyzer IN Cardio OR; Calcium, Ionized 1.17 mmol/L (1.12-1.30); Carboxyhemoglobin (COHb) 1.1 gm% (0.0-3.0); Potassium - ABG Lab 4.35 mmol/L (3.70-5.30); Puncture Site RRA
[2018-02-22] MEDS: Vancomycin HCl 1 GM in Premix Bag 1 BAG IVPB SCH (15:43)
[2018-02-22 16:05] LABS: INR-International Normal Ratio 1.1; Prothrombin Time 14.4 SEC (12.0-14.7)
[2018-02-22] MEDS ORDERED: Loratadine 10 MG TAB PO PRN (18:10)
[2018-02-22] MEDS ORDERED: Acetaminophen/Codeine 30-300mg Tablet PO PRN (18:10)
[2018-02-22] MEDS: Piperacillin/Tazobactam 3.375 GM in Sodium Chloride 0.9% 100 ML IVPB SCH (19:22)
[2018-02-22] MEDS: Carvedilol 25 MG TAB PO SCH (20:35)
[2018-02-22] MEDS: Simvastatin 5 MG TAB PO SCH (20:35)
[2018-02-22] MEDS: Pantoprazole 40 MG VIAL IVP SCH (20:36)
[2018-02-22] MEDS ORDERED: Prevnar 13-Val Conj/PF 0.5 ML SYRINGE IM ONE (21:00)
[2018-02-22 21:47] LABS: Hemoglobin 9.9 g/dL (12.0-16.0)
[2018-02-22] MEDS ORDERED: Furosemide 40 MG/4 ML VIAL SLOW IVP SCH (22:15)
[2018-02-23 00:13] LABS: Hemoglobin 9.9 g/dL (12.0-16.0)
[2018-02-23] MEDS: Piperacillin/Tazobactam 3.375 GM in Sodium Chloride 0.9% 100 ML IVPB SCH ×4 (00:29→19:40)
--- NOTE | 2018-02-23 06:06 | PDOC.FM ---
- Subjective Subjective: Patient had no new complaints this morning. Denies difficulty breathing, SOB, cough, fever, CP. She seemed to be tired, speech was slow. Oriented to person, but would not respond to questions about place or time. - Objective MAR Reviewed: Yes Vital Signs & Weight: Vital Signs (12 hours) Temp Pulse Pulse Resp BP BP Pulse Ox 02/23/18 03:32 97.8 F 65 20 96/47 L 95 02/22/18 23:12 97.8 F 61 24 H 100/49 L 95 02/22/18 21:28 97.6 F 63 23 H 110/53 L 02/22/18 20:58 62 24 H 97 02/22/18 20:00 96 02/22/18 19:35 97.7 F 62 25 H 112/56 L 96 02/22/18 18:26 97.5 F L 22 H Weight Weight 48.988 kg Most Recent Monitor Data Heart Rate from ECG 65 NIBP 112/51 I&O: 02/21/18 02/22/18 02/23/18 06:59 06:59 06:59 Intake Total 700 Balance 700 Result Diagrams: 02/23/18 04:46 02/23/18 04:46 <Estela Hauser - Last Filed: 02/23/18 09:41> - Objective Vital Signs & Weight: Vital Signs (12 hours) Temp Pulse Resp BP Pulse Ox 02/23/18 15:59 97 F L 75 20 125/58 L 94 L 02/23/18 11:12 127/60 95 02/23/18 11:09 18 85/53 L 02/23/18 08:30 68 02/23/18 07:40 97.6 F 68 18 113/57 L 98 02/23/18 07:37 97.6 F 68 20 113/57 L 98 Weight Weight 48.988 kg Most Recent Monitor Data Heart Rate from ECG 65 NIBP 112/51 I&O: 02/22/18 02/23/18 02/24/18 06:59 06:59 06:59 Intake Total 1250 Balance 1250 Result Diagrams: 02/23/18 12:07 02/23/18 04:46 <Keisha Doe - Last Filed: 02/23/18 16:36> Phys Exam - Physical Examination Constitutional: NAD HEENT: moist MMs Neck: full ROM Respiratory: no wheezing, no rhonchi, clear to auscultation bilateral Cardiovascular: RRR, no significant murmur Gastrointestinal: soft, non-tender, no distention Musculoskeletal: no edema, pulses present Neurological: non-focal, moves all 4 limbs Psychiatric: normal affect Deviation from normal: Oriented to person, did not answer questions about place or time. Skin: no rash, normal turgor <Estela Hauser - Last Filed: 02/23/18 09:41> Dx/Plan (1) Pneumonia Code(s): J18.9 - PNEUMONIA, UNSPECIFIED ORGANISM Status: Acute (2) Acute blood loss anemia Code(s): D62 - ACUTE POSTHEMORRHAGIC ANEMIA Status: Acute (3) B-cell lymphoma Code(s): C85.10 - UNSPECIFIED B-CELL LYMPHOMA, UNSPECIFIED SITE Status: Acute (4) Diabetes Code(s): E11.9 - TYPE 2 DIABETES MELLITUS WITHOUT COMPLICATIONS Status: Chronic (5) HTN (hypertension) Code(s): I10 - ESSENTIAL (PRIMARY) HYPERTENSION Status: Chronic - Plan Plan: 83 yo F presents from nursing with CC of SOB, admitted for acute anemia. Acute normocytic anemia, possibly 2/2 GI bleed - Hgb 6.3 in ED, s/p 2 units. Hgb 10.4 this am - GI, Dr. Cisneros consulted, appreciate recommendations - plan for colonoscopy - trend CBC Acute hypoxic respiratory failure, 2/2 possible HAP - requiring supplemental O2, on 2L this am. - does not require home O2 - on broad spectrum abx, vanc (02/22), zosyn (02/22), levaquin (02/22) - CXR showed cardiomegaly, b/l pleural effusion, bibasilar opacities concerning for atelectasis or pneumonia. - Procalcitonin 0.81 Hypomagnesemia - 1.1 this am - replaced with 2g - recheck in am T2DM - accuchecks, SSI - continue home med B cell lymphoma - Likely contributing to anemia - Recent biopsy diagnosis - Consider hematology consult Saturday Cardiomyopathy with hx of CAD - 2/ murmur - last echo in 04/2017 showed EF 55-60% - BNP 199 HTN - Borderline Hypotension - Hold Home BP meds for now Dispo: pending anemia workup <Estela Hauser - Last Filed: 02/23/18 09:41> (1) Acute blood loss anemia Code(s): D62 - ACUTE POSTHEMORRHAGIC ANEMIA Status: Acute (2) B-cell lymphoma Code(s): C85.10 - UNSPECIFIED B-CELL LYMPHOMA, UNSPECIFIED SITE Status: Acute (3) CAD (coronary artery disease) Code(s): I25.10 - ATHSCL HEART DISEASE OF [place] CORONARY ARTERY W/O ANG PCTRS Status: Acute (4) Recurrent UTI Code(s): N39.0 - URINARY TRACT INFECTION, SITE NOT SPECIFIED Status: Acute (5) Diabetes Code(s): E11.9 - TYPE 2 DIABETES MELLITUS WITHOUT COMPLICATIONS Status: Chronic (6) HTN (hypertension) Code(s): I10 - ESSENTIAL (PRIMARY) HYPERTENSION Status: Chronic <Keisha Doe - Last Filed: 02/23/18 16:36> Attending Addendum - Attending Addendum Date/Time: 02/23/18 0635 I personally evaluated the patient and discussed the management with Dr. Hauser. I agree with the History, Examination, Assessment and Plan documented above with any addition or exceptions noted below. Patient's hemoglobin improved after transfusion. Will have EGD today. Pt will remain on antibiotics for pneumonia. <Keisha Doe - Last Filed: 02/23/18 16:36>
[2018-02-23 06:08] LABS: ALT (SGPT) 10 U/L (8-55); AST (SGOT) 39 U/L (5-34); Albumin 2.9 g/dL (3.4-4.8); Alkaline Phosphatase 91 U/L (40-150); Anion Gap 16 mmol/L (10-20); BUN (Urea Nitrogen) 49 mg/dL (9.8-20.1); Bilirubin, Total 0.7 mg/dL (0.2-1.2); Calc. Creatinine Clearance 33 mL/min (70-130); Calcium 9.3 mg/dL (7.8-10.44); Carbon Dioxide 28 mmol/L (23-31); Chloride 91 mmol/L (98-107); Estimated GFR-MDRD 52; Globulin 2.8 g/dL (2.4-3.5); Glucose 106 mg/dL (83-110); Protein, Total 5.7 g/dL (6.0-8.3); Sodium 131 mmol/L (136-145)
[2018-02-23 06:39] LABS: Band 28 % (5-11); Hemoglobin 10.4 g/dL (12.0-16.0); Lymphocytes 22 % (21-51); MDiff Complete? YES; Mean Corpuscular HGB CONC 32.4 g/dL (32.0-36.0); Mean Corpuscular Volume 86.5 fL (78.0-98.0); Mean Platelet Volume 7.9 fL (7.4-10.4); Metamyelocyte 2 % (0-0); Monocytes 3 % (0-10); Myelocyte 1 % (0-0); Neutrophil 39 % (42-75); Platelet Count 121 thou/uL (130-400); RBC Distribution Width 15.9 % (11.5-14.5); Reactive Lymphocytes 5 % (0-10); Red Blood Cell (RBC) Count 3.71 mill/uL (4.20-5.40); White Blood Cell (WBC) Count 12.9 thou/uL (4.8-10.8)
--- NOTE | 2018-02-23 07:00 | CON ---
DATE OF CONSULTATION: 02/22/2018 REASON FOR CONSULTATION: Possible GI bleed. HISTORY OF PRESENT ILLNESS: Ms. Rothman is an 83-year-old female who has been in and out of the hosp ital quite a bit recently, fatigued. She was recently diagnosed with some spinal fractures, pelvic f ractures, rib fractures, and then most recently was diagnosed with B-cell lymphoma on a needle biopsy of a lymph node from 02/12/2018. This was in the right inguinal area. She has not yet been seen by Oncology. Apparently, this diagnosis was made after a CAT scan on 02/11/2018, showed extensive charo opathy. That CAT scan showed a pathologic-appearing fracture of the right inferior pubic ramus, as w ell as some compression fractures in her back. The day before that, she had a CAT scan of her chest that showed neck, mediastinal, and right hilar adenopathy as well. She was discharged to alf, but then she came back today and was admitted this afternoon seco ndary to lethargy, hypoxemia, and a feeling of shortness of breath. In the emergency room, she was f ound to have a hemoglobin of 6.3. It had been 9.6 on 02/15/2018. Also, in the emergency room, it wa s reported that she had a melenic stool. The son is at the bedside. He is not aware of any bleeding at the alf. There has been no history of melena or rectal bleeding at home. The nurse sta brannon she has had no bowel movements here. Apparently, there is one bowel movement in the emergency ro om and this was confirmed with to the emergency room physician. Presently, she complains just a feeling of shortness of breath and weak. She has no overt pain. She denies any abdominal pain or chest pain. She denies any nausea or vomiting. REVIEW OF SYSTEMS: She does complain of generalized weakness. No fever. No bone pain or back pain. PAST MEDICAL HISTORY: Includes coronary artery disease, previous right bundle branch block, cardiome leno, diabetes, hypertension. PAST SURGICAL HISTORY: Appendectomy, coronary artery bypass grafting, cholecystectomy, previous tons illectomy. SOCIAL HISTORY: No smoking. Denies alcohol. Denies drug use. ALLERGIES: CODEINE causes nausea. MEDICATIONS AT HOME: DuoNeb, aspirin, amlodipine, lisinopril, glyburide, simvastatin, carvedilol, Ty lenol with codeine, and glyburide. MEDICATIONS HERE: Tylenol, levofloxacin, Zofran, Protonix, Zosyn, normal saline, vancomycin. She is receiving some blood now. PHYSICAL EXAMINATION: GENERAL: The patient is very pale. She is resting in bed. She is little bit short-winded. VITAL SIGNS: Temperature is 98, blood pressure 103/49 with respirations 22, pulse of 97, temperature is 98. LUNGS: Clear. HEART: Regular rhythm. ABDOMEN: Nontender. There is no rebound. There is no guarding. EXTREMITIES: No clubbing, cyanosis, or edema. LABORATORY DATA: White count is 17.3; hemoglobin 6.3, it was 9.6 on 02/15/2018, 9.6 on 02/11/2010, 1 0.3 on 01/25/2018; platelet count is 135. She had 21% bands. This is similar to previous differenti als. Sodium is 127, last time here 134. Potassium is 4.3, bicarbonate is 24, chloride is 88. BUN a nd creatinine are 52 and 1.2, previously 6 and 0.65 on 02/15/2018. Glucose 245, AST 39, ALT 12, bill line phosphatase 92, protein 5.4, albumin 2.8, BNP 199. Chest x-ray, PA and lateral, bilateral effus ions. ASSESSMENT: This is an 83-year-old female who was discharged from the hospital 3 days ago on 018 with weight loss, fatigue, and failure to thrive and was found to have B-cell lymphoma on biopsy. She has not seen Oncology yet. Now, she is readmitted with a drop in hemoglobin from about 9 to ab out 6 with at least one black stool documented here. She has had no further bowel movements and seem s hemodynamically stable at this time. She is receiving blood and she has received a PPI. She has a benign abdomen. She does have some respiratory distress and has effusions on her chest x-ray, possi ble pneumonia, although her leukocytosis and bandemia may all be related to her B-cell lymphoma. RECOMMENDATIONS: 1. Transfuse to about a hemoglobin of 8 and keep hemoglobin there. 2. IV Protonix. 3. N.P.O. 4. Consider endoscopy in the next 24-48 hours to be on overall course and respiratory status. If sh brandon has no signs of bleeding, we may be able to treat her empirically with PPIs. We will check an INR as well. If she shows signs of overt GI hemorrhage, she would need to be moved to the ICU and intuba gabriela to have emergent endoscopy. I have discussed this with the residents. We will continue to zana flores along with you.
[2018-02-23] MEDS ORDERED: Magnesium 2 GM/NS 0.9% 100 ML 2 GM in Premix Bag 1 BAG IVPB SCH (07:45)
[2018-02-23] MEDS: Carvedilol 25 MG TAB PO SCH (08:30)
[2018-02-23] MEDS: glyBURIDE 5 MG TAB PO SCH (08:30)
[2018-02-23] MEDS ORDERED: [UNRECOGNIZED DRUG - REMARK] IVPB PRN (09:00)
[2018-02-23] MEDS ORDERED: Amlodipine 10 MG TAB PO SCH (09:00)
[2018-02-23] MEDS ORDERED: ePHEDrine/0.9% NaCl/PF SYRINGE 50 mg/10 ml ONE (10:26)
--- NOTE | 2018-02-23 10:28 | OP ---
PREPROCEDURE DIAGNOSES: Melena and anemia on admission with drop in hemoglobin from baseline of arou nd 9 to 6.3; after transfusion, hemoglobin is up to 10.4. POSTPROCEDURE DIAGNOSES: 1. Normal esophagus. 2. Multiple irregular ulcers in the proximal stomach and cardia of the stomach with slightly raised margins, most were white-based, one at the cardia was about a cm in diameter with a visible vessel wi th no active bleeding. That visible vessel was injected with 8 mL of 1:10,000 epinephrine and then t he vessel was cauterized with 7-Lao heater probe. 3. Biopsies were taken from the margins of some of the other ulcers with no stigmata to indicate hig h risk of rebleeding, to submit to pathology. 4. Stomach was, otherwise, normal in distensibility and the antrum was normal. 5. Normal duodenum to second and third portions. ANESTHESIA: TIVA. RECOMMENDATIONS: 1. Continue IV Protonix q.12 hours. 2. Clear liquids. 3. Monitor H and H. PROCEDURE IN DETAIL: After the patient was informed of the risks, benefits, possible complications o f endoscopy including perforation, bleeding, reactions to medication, and aspiration, informed consen t was obtained. The patient was brought to the endoscopy suite where she was sedated in a gradual fa shion. Once she was comfortable, a bite block was placed in the incisural orifice. The endoscope wa s advanced through the esophagus, stomach, and the second and third portion of duodenum and slowly re moved. The patient did have some transient hypotension and was given epinephrine, pressure did come up. She had good saturation throughout the procedure. In the stomach, there was about 4-5 small ulc ers ranging in size from 3-4 mm up to 4 cm in the proximal body and cardia of the stomach. Photodocu mentation was obtained. These had somewhat raised and irregular margins, but were soft when manipula gabriela. Biopsies were taken from 2 of the ulcers in the more distal body for pathology and submitted. In the cardia, just below the GE junction, there was a 1 cm ulcer with a visible vessel with no stigm danni of recent bleeding, but this is felt to be a high-risk lesion. It was injected with 1:10,000 epi nephrine and cauterized with 7-Lao heater probe. The scope was then removed. The patient tolerat ed procedure well and there were no complications.
--- NOTE | 2018-02-23 11:13 | PDOC.EVN ---
Event Note - Event Note Event Note: Residents paged regarding pt's blood pressures being 70s/40s in PACU. Telemetry uncomfortable receiving patient with this BP. Pt evaluated in PACU. Per anesthesia, pt noted to be hypotensive with prior to intervention and sedatives. BP: 80s/50s. General: somnolent, but responsive. Heart: RRR, no MRG. Lungs: CTAB Neuro: CN II-XII intact grossly. GCS 11 ([id number]). Assessment and Plan Hypotension - discussed with blurb writer that BPs have improved. Will resume transfer to telemetry. - will hold all antihypertensives. - consider 500 cc fluid bolus if BPs remain low. - strict I/Os.
[2018-02-23] MEDS: Pantoprazole 40 MG VIAL IVP SCH ×2 (12:26→21:02)
[2018-02-23 12:53] LABS: Hemoglobin 10.5 g/dL (12.0-16.0)
[2018-02-23] MEDS ORDERED: Vancomycin HCl 1 GM in Premix Bag 1 BAG IVPB SCH (13:00)
[2018-02-23 13:01] LABS: Vancomycin, Random 8.5 ug/mL (See Comment)
[2018-02-23] MEDS ORDERED: PHENYLEPHRINE-NS 100 MCG/ML 10 ML SYRINGE ONE (13:49)
[2018-02-23] MEDS ORDERED: Lidocaine 1% PF 5 ML VIAL ONE (13:49)
[2018-02-23] MEDS ORDERED: PROPOFOL 200 MG/20 ML VIAL ONE (13:49)
[2018-02-23] MEDS: Vancomycin HCl 1 GM in Premix Bag 1 BAG IVPB SCH (15:57)
[2018-02-23 18:02] LABS: Hemoglobin 10.6 g/dL (12.0-16.0)
[2018-02-23] MEDS: Simvastatin 5 MG TAB PO SCH (21:02)
[2018-02-24 00:23] LABS: Hemoglobin 10.1 g/dL (12.0-16.0)
[2018-02-24] MEDS: Piperacillin/Tazobactam 3.375 GM in Sodium Chloride 0.9% 100 ML IVPB SCH ×4 (00:23→17:42)
[2018-02-24 06:19] LABS: ALT (SGPT) 8 U/L (8-55); AST (SGOT) 34 U/L (5-34); Albumin 2.9 g/dL (3.4-4.8); Alkaline Phosphatase 91 U/L (40-150); Anion Gap 13 mmol/L (10-20); BUN (Urea Nitrogen) 24 mg/dL (9.8-20.1); Bilirubin, Total 0.7 mg/dL (0.2-1.2); Calc. Creatinine Clearance 39 mL/min (70-130); Calcium 9.2 mg/dL (7.8-10.44); Carbon Dioxide 33 mmol/L (23-31); Chloride 92 mmol/L (98-107); Estimated GFR-MDRD 64; Globulin 2.9 g/dL (2.4-3.5); Glucose 118 mg/dL (83-110); Potassium 3.6 mmol/L (3.5-5.1); Protein, Total 5.8 g/dL (6.0-8.3); Sodium 134 mmol/L (136-145)
[2018-02-24 06:55] LABS: Mean Corpuscular HGB CONC 32.3 g/dL (32.0-36.0); Mean Corpuscular Hemoglobin 28.3 pg (27.0-31.0); Mean Corpuscular Volume 87.5 fL (78.0-98.0); Mean Platelet Volume 8.1 fL (7.4-10.4); Platelet Count 105 thou/uL (130-400); RBC Distribution Width 16.3 % (11.5-14.5); Red Blood Cell (RBC) Count 3.88 mill/uL (4.20-5.40); White Blood Cell (WBC) Count 12.4 thou/uL (4.8-10.8)
[2018-02-24] MEDS: Pantoprazole 40 MG VIAL IVP SCH ×2 (07:38→21:14)
[2018-02-24] MEDS: glyBURIDE 5 MG TAB PO SCH (07:39)
[2018-02-24 08:45] LABS: Band 22 % (5-11); Lymphocytes 24 % (21-51); MDiff Complete? YES; Metamyelocyte 1 % (0-0); Monocytes 7 % (0-10); Myelocyte 7 % (0-0); Neutrophil 34 % (42-75); Nucleated RBC 1 % (0); PLT Morphology Comment Appears Decreased; Polychromasia MODERATE = 3-4 cells (100X) (0-2/hpf); Reactive Lymphocytes 5 % (0-10)
--- NOTE | 2018-02-24 09:00 | PDOC.EVN ---
Event Note - Event Note Event Note: Discussed pt. care with Dr. Rose this morning. He is planning on taking over care at this time. We are signing off. Please feel free to contact us with any questions.
--- NOTE | 2018-02-24 09:21 | RAD ---
AP VIEW OF THE CHEST: INDICATION: Pneumonia. COMPARISON: Prior exam dated 02/22/18. FINDINGS: The bibasilar pleural parenchymal opacities are stable. Cardiomegaly persists. Mild pulmonary vascu lar congestion is stable. No pneumothorax is evident. Calcifications overlie the right greater tube rosity likely reflective of calcific tendinosis. Midline sternotomy changes and cholecystectomy clip s are stable. IMPRESSION: Stable examination of the chest when compared to a prior dated 02/21/18. Bibasilar pleural parenchyma l opacities persist. Mild cardiomegaly and pulmonary vascular congestion is stable. POS: [facility]
--- NOTE | 2018-02-24 12:39 | PQF ---
CLINICAL DOCUMENTATION IMPROVEMENT CLARIFICATION FORM: ICD-10 Updated PLEASE DO AN ADDENDUM TO THE PROGRESS NOTE WITH ANY DOCUMENTATION UPDATES OR ADDITIONS AND CARRY THROUGH TO DC SUMMARY. THANK YOU. DATE: 02/24/18 ATTN: DR. ANDINO Please exercise your independent, professional judgment in responding to the clarification form. Clinical indicators are provided on the bottom of this form for your review Please check appropriate box(es): [ x ] Sepsis due to: (Pna, UTI, gangrenous gall bladder, etc.) __early pneumonia Due to: [ ] Device (please specify) [ ] Implant [ ] Graft [ ] Infusion [ ] SIRS due to non-infectious process (please specify etiology) [ ] with organ dysfunction [ ] without organ dysfunction [ ] Severe sepsis with acute organ dysfunction of: (Examples: respiratory failure, encephalopathy, acute kidney failure, other) [ ] Septic Shock [ ] Localized infection without sepsis [ ] Other diagnosis [ ] Unable to determine In addition, please specify: Present on Admission (POA): [ ] Yes [ ] No [ ] Unable to determine For continuity of documentation, please document condition throughout progress notes and discharge summary. Thank You. CLINICAL INDICATORS - SIGNS / SYMPTOMS / LABS ER NOTE: BP 92/39 02/22: RR 24 WBC 02/23: 12.9 BANDS 28 RISKS: PNEUMONIA TREATMENT: IV LEVAQUIN (ER-PRESENT) IV ZOSYN (ER-PRESENT) IV VANCOMYCIN (02/22-PRESENT) BLOOD AND URINE CULTURES [employer] Win[employer] (This form is maintained as a part of the permanent medical record) 2014 [employer]. All Rights Reserved [email or web address] Office: [phone] TERRY
[2018-02-24] MEDS: Vancomycin HCl 1 GM in Premix Bag 1 BAG IVPB SCH (15:18)
[2018-02-24 15:37] LABS: Vancomycin, Trough 9.5 ug/mL
[2018-02-24] MEDS: Simvastatin 5 MG TAB PO SCH (21:14)
--- NOTE | 2018-02-24 21:22 | PRG ---
DATE OF SERVICE: 02/24/2018 SUBJECTIVE: Ms. Rothman has had no further overt bleeding today. No abdominal pain. She has tolera gabriela clear liquid diet. OBJECTIVE: VITAL SIGNS: Temperature is 98.9, pulse 79, blood pressure 154/67. GENERAL: She is in no acute distress, awake, and alert. LUNGS: Clear to auscultation bilaterally. HEART: Regular rate and rhythm without murmur. ABDOMEN: Soft, nontender, nondistended. Bowel sounds are present. EXTREMITIES: No lower extremity edema. LABORATORY DATA: Her hemoglobin is stable at 11. Creatinine is 0.85. IMPRESSION: 1. Anemia secondary to acute blood loss from gastric ulcer, status post cautery of a gastric ulcer. 2. Multiple gastric ulcers and a history of lymphoma, biopsies from the ulcer edges are pending. RECOMMENDATIONS: 1. Advance diet. 2. Check hemoglobin once daily. 3. Proton pump inhibitor. Currently on pantoprazole 40 mg IV q.12 hours. She should be able to uriah nge from IV proton pump inhibitor to oral proton pump inhibitor tomorrow.
[2018-02-25] MEDS: Piperacillin/Tazobactam 3.375 GM in Sodium Chloride 0.9% 100 ML IVPB SCH ×2 (00:04→05:11)
--- NOTE | 2018-02-25 00:38 | CON ---
DATE OF CONSULTATION: 02/24/2018 REASON FOR CONSULTATION: Lymphoma. HISTORY OF PRESENT ILLNESS: An 83-year-old female with new diagnosis of B cell lymphoma, hi story of CAD status post CABG, diabetes and hypertension presenting to the ED from [facility]. The pa tika was reportedly hypoxic and lethargic and sent over to the hospital. She reported feeling bad, but had very little complaints. The patient is a very poor historian. The patient states she is fee ling better since admission to the hospital. Blood cultures and urine culture showed no growth at 48 hours since admission. She had Enterococcus in the urine culture on 02/10/2018. The patient has be en placed on vancomycin and Levaquin. On admission to the hospital, the patient was found to have a hemoglobin of 6.3 and after transfusions on 02/22/2018, her hemoglobin increased to 10.4 and is curre ntly 11.0. Dr. Cisneros was consulted and performed an upper endoscopy that showed multiple irregular ulcers in the proximal stomach and cardia of the stomach with slightly raised margins, one with a vis ible vessel with no active bleeding. This vessel was injected with epinephrine and cauterized. Biop sies were taken and sent to pathology. The patient denies any B symptoms; however, this history is d ifficult to obtain from the patient. She denies having any lymph node biopsies; however, there was a biopsy done on 02/12/2018 and ultrasound guided core biopsy showed a CD10 positive B-cell lymphoma a nd FISH positive for 14:18 translocation. The patient did have a high Ki-67 proliferation index of a pproximately 50%. REVIEW OF SYSTEMS: Ten point review of systems negative except as per HPI. PAST MEDICAL HISTORY: B-cell lymphoma, coronary artery disease, history of falls, mild dementia, rec urrent UTIs, diabetes, hypertension. PAST SURGICAL HISTORY: CABG, cholecystectomy, appendectomy, carotid endarterectomy, tonsillectomy, a ppendectomy. FAMILY HISTORY: None. SOCIAL HISTORY: The patient denies smoking, alcohol or illicit drugs. PHYSICAL EXAMINATION: VITAL SIGNS: Temperature 98.9, pulse 79, respirations 16, satting 92% on 2 liters by nasal cannula, blood pressure 154/67. GENERAL APPEARANCE: The patient is lying in bed, in no acute distress. CARDIOVASCULAR: S1, S2, regular rate and rhythm. LUNGS: Clear to auscultation bilaterally. ABDOMEN: Soft, nondistended, nontender. HEENT: Eyes, equal and round and reactive. SKIN: No rash. LYMPHATICS: No axillary lymphadenopathy. Minimal cervical lymphadenopathy, that is shotty. Inguina l lymphadenopathy previously biopsied. NEUROLOGIC: Nonfocal. PSYCHIATRIC: The patient is alert and oriented x3, however, is a very poor historian. LABORATORY DATA: White blood cells 12.4, hemoglobin 6.3 on admission, currently 11 status post blood transfusions, platelet count 136,000 on admission, trended down to 105,000 currently. BUN 24, creat inine 0.85, albumin 2.9. IMAGING DATA: CT angio of the chest dated 02/10/2018 shows neck, mediastinal and right hilar lymphad enopathy. Also pathologic fracture with surrounding soft tissue changes involving the left posterior eighth rib and multilevel compression changes at the thoracic spine. CT of the abdomen and pelvis d ated 02/11/2018 shows extensive abdominal adenopathy including retrocrural, peripancreatic, gastrohep atic ligament, paraaortic, aortocaval and mesenteric adenopathy as well as inguinal adenopathy. Bony changes with compression changes in multiple vertebral body levels and a pathologic appearing fractu re of the right inferior pubic ramus. PATHOLOGY: Ultrasound guided core biopsy of the right inguinal lymph node shows CD10 positive B-cell lymphoma and FISH positive for translocation 14:18, IGH/BCL2 fusion, Ki-67 approximately 50%. ASSESSMENT AND PLAN: An 83-year-old female with new diagnosis of B-cell lymphoma with diffu se lymphadenopathy, presenting with gastrointestinal bleed, found to have multiple gastric ulcers sta tus post multiple blood transfusions and hemoglobin is currently stable. The patient is a poor histo elaine, however, does deny any B symptoms. She has diffuse lymphadenopathy in the neck, chest and abdo men on imaging and biopsy showed a CD10 positive B-cell lymphoma with 14:18 translocation. This can be seen in follicular lymphoma and diffuse large B-cell lymphoma. This is more common in follicular lymphoma; however, the Ki-67 is 50%, which is very high for a low-grade follicular lymphoma. The bio psy was a core biopsy, which is typically not sufficient for diagnosis for lymphoma, which requires a n excisional biopsy to truly assess architecture and delineate subtype. I would recommend surgical c onsultation for inguinal excisional lymph node biopsy. The patient would not be an ideal candidate f or chemotherapy given performance status; however, if this is found to be a follicular lymphoma, she may not necessarily require immediate treatment. We will follow this patient with you after biopsy. Thank you for this consult.
[2018-02-25] MEDS ORDERED: Vancomycin HCl 750 MG in Sodium Chloride 0.9% 250 ML 250 ML IVPB SCH (03:00)
[2018-02-25 06:12] LABS: Band 23 % (5-11); Hemoglobin 10.6 g/dL (12.0-16.0); Lymphocytes 26 % (21-51); MDiff Complete? YES; Mean Corpuscular HGB CONC 31.5 g/dL (32.0-36.0); Mean Corpuscular Hemoglobin 27.9 pg (27.0-31.0); Mean Corpuscular Volume 88.8 fL (78.0-98.0); Mean Platelet Volume 8.4 fL (7.4-10.4); Metamyelocyte 1 % (0-0); Monocytes 13 % (0-10); Myelocyte 4 % (0-0); Neutrophil 29 % (42-75); Nucleated RBC 2 % (0); PLT Morphology Comment Appears Decreased; Platelet Count 95 thou/uL (130-400); RBC Distribution Width 15.8 % (11.5-14.5); Reactive Lymphocytes 4 % (0-10); Red Blood Cell (RBC) Count 3.81 mill/uL (4.20-5.40)
[2018-02-25 06:18] LABS: ALT (SGPT) 9 U/L (8-55); AST (SGOT) 32 U/L (5-34); Alkaline Phosphatase 85 U/L (40-150); Anion Gap 12 mmol/L (10-20); BUN (Urea Nitrogen) 11 mg/dL (9.8-20.1); Bilirubin, Total 0.7 mg/dL (0.2-1.2); Calc. Creatinine Clearance 43 mL/min (70-130); Calcium 9.2 mg/dL (7.8-10.44); Carbon Dioxide 33 mmol/L (23-31); Chloride 93 mmol/L (98-107); Estimated GFR-MDRD 75; Globulin 2.9 g/dL (2.4-3.5); Potassium 3.1 mmol/L (3.5-5.1); Protein, Total 5.9 g/dL (6.0-8.3); Sodium 135 mmol/L (136-145)
[2018-02-25 06:23] LABS: Glucose 57 mg/dL (83-110)
[2018-02-25] MEDS: glyBURIDE 5 MG TAB PO SCH (07:52)
[2018-02-25] MEDS: Pantoprazole 40 MG VIAL IVP SCH (07:52)
[2018-02-25] MEDS: Amoxicillin/Potassium Clav 875 MG TAB PO SCH ×2 (08:27→20:35)
[2018-02-25] MEDS: Potassium Chloride 10 MEQ TAB PO SCH ×2 (08:27→20:36)
[2018-02-25] MEDS: Dextrose 50% Abboject 50 ML SYRINGE SLOW IVP PRN ×2 (11:24→16:57)
[2018-02-25] MEDS ORDERED: CEFAZOLIN/Water 2 GM/20 ML SYRINGE SLOW IVP SCH (15:30)
--- NOTE | 2018-02-25 20:11 | CON ---
DATE OF CONSULTATION: 02/25/2018 CHIEF COMPLAINT: Inguinal adenopathy. HISTORY: This is an 83-year-old female who came to the emergency room with a GI bleed and lethargy. She was found to have a gastric ulcer. This was cauterized and biopsy. She also has had a previous core biopsy of a groin mass that came back lymphoma; however, more tissue was needed to further defi ne the tumor. She has had a CT showing multiple adenopathy. PAST MEDICAL HISTORY: Hypertension, diabetes, coronary artery disease, rib fractures, vertebral frac tures. PAST SURGICAL HISTORY: She has had an appendectomy, coronary bypass graft, tonsil and adenoidectomy. MEDICATIONS: Include DuoNeb, aspirin, amlodipine, lisinopril, glyburide, simvastatin, carvedilol, Ty lenol #3. SOCIAL HISTORY: She lives in the [facility]. No tobacco or alcohol. Dr. Johnny Rose is her phy sician. ALLERGIES: She says she has an allergy to CODEINE, but they given her the Tylenol #3, this makes her stomach upset. PHYSICAL EXAMINATION: VITAL SIGNS: Temperature 98.2, pulse 87, blood pressure 153/67, frail, thin female, in no apparent d istress. She has oxygen on. HEENT: Otherwise, unremarkable. LUNGS: Clear. HEART: Regular rate and rhythm. ABDOMEN: Soft, nondistended, nontender. There is a 2 cm lymph node palpable in the right groin. LABORATORY AND X-RAY FINDINGS: Her white count is 13, H&H 10 and 33, platelet count 95. Electrolyte s show glucose 117, creatinine 0.7. PT of 14. ASSESSMENT: Lymphoma, in need of further tissue. PLAN: Right inguinal lymph node biopsy with lymphoma protocol. CONSENT: I have discussed the planned procedure as well as risk of bleeding, infection. She underst ands and gives informed consent.
[2018-02-25] MEDS: Simvastatin 5 MG TAB PO SCH (20:35)
[2018-02-25] MEDS: Pantoprazole 80 MG in Sodium Chloride 0.9% 100 ML IVP SCH (20:36)
--- NOTE | 2018-02-25 22:23 | PRG ---
DATE OF SERVICE: 02/25/2018 SUBJECTIVE: Ms. Rothman passed a black stool this evening. She has no abdominal pain. OBJECTIVE: VITAL SIGNS: Temperature 98.0, pulse 82, and blood pressure 145/65. GENERAL: She is in no acute distress, alert and oriented x3. HEENT: Eyes have no scleral icterus. Oropharynx is clear, without lesions. LUNGS: Clear to auscultation bilaterally. HEART: Regular rate and rhythm without murmur. ABDOMEN: Soft, nontender, nondistended. Bowel sounds are present. EXTREMITIES: No lower extremity edema. LABORATORY DATA: White blood cell count 13.0, hemoglobin 10.6, platelets 95. Creatinine 0.74. IMPRESSION: 1. Diffuse large B cell lymphoma. The biopsies from the gastric ulcers confirm again diffuse B cell lymphoma. 2. Anemia secondary to acute blood loss. She has status post cautery of one of the ulcers on 2017. She has only passed one black stool and we will follow for ongoing bleeding and follow the mahad nd of her hemoglobin. These are malignant ulcers. RECOMMENDATIONS: 1. Follow trend of her hemoglobin in the morning. 2. Await, Hematology/Oncology recommendations. 3. house mover helper to a proton pump inhibitor drip.
[2018-02-26 05:34] LABS: ALT (SGPT) 8 U/L (8-55); AST (SGOT) 30 U/L (5-34); Albumin 2.9 g/dL (3.4-4.8); Alkaline Phosphatase 81 U/L (40-150); Anion Gap 11 mmol/L (10-20); BUN (Urea Nitrogen) 8 mg/dL (9.8-20.1); Bilirubin, Total 0.5 mg/dL (0.2-1.2); Calc. Creatinine Clearance 46 mL/min (70-130); Calcium 9.5 mg/dL (7.8-10.44); Carbon Dioxide 33 mmol/L (23-31); Chloride 93 mmol/L (98-107); Estimated GFR-MDRD 81; Globulin 2.9 g/dL (2.4-3.5); Glucose 108 mg/dL (83-110); Potassium 3.4 mmol/L (3.5-5.1); Protein, Total 5.8 g/dL (6.0-8.3); Sodium 134 mmol/L (136-145)
[2018-02-26] MEDS: Pantoprazole 80 MG in Sodium Chloride 0.9% 100 ML IVP SCH (05:41)
[2018-02-26 07:02] LABS: Hemoglobin 10.4 g/dL (12.0-16.0); Mean Corpuscular HGB CONC 31.7 g/dL (32.0-36.0); Mean Corpuscular Hemoglobin 28.2 pg (27.0-31.0); Mean Corpuscular Volume 88.8 fL (78.0-98.0); Mean Platelet Volume 8.8 fL (7.4-10.4); Platelet Count 83 thou/uL (130-400); RBC Distribution Width 15.7 % (11.5-14.5); Red Blood Cell (RBC) Count 3.69 mill/uL (4.20-5.40)
[2018-02-26] MEDS ORDERED: glyBURIDE 2.5 MG TAB PO SCH (07:30)
[2018-02-26 08:30] LABS: MDiff Complete? YES
[2018-02-26 08:31] LABS: Band 24 % (5-11); Blast 8 % (0-0); Lymphocytes 29 % (21-51); Metamyelocyte 6 % (0-0); Myelocyte 2 % (0-0); Neutrophil 26 % (42-75); Nucleated RBC 1 % (0); Reactive Lymphocytes 5 % (0-10); Reflex for Review?? YES
[2018-02-26 09:25] LABS: Phosphorus 2.4 mg/dL (2.3-4.7); Uric Acid 3.4 mg/dL (2.6-6.0)
[2018-02-26] MEDS ORDERED: Pantoprazole 80 MG in Sodium Chloride 0.9% 100 ML IVP SCH (09:45)
[2018-02-26] MEDS ORDERED: Pantoprazole 40 MG VIAL IVP SCH (09:45)
[2018-02-26] MEDS: Amoxicillin/Potassium Clav 875 MG TAB PO SCH ×2 (09:54→20:44)
[2018-02-26] MEDS: Potassium Chloride 10 MEQ TAB PO SCH ×2 (09:55→20:44)
[2018-02-26] MEDS ORDERED: PROPOFOL 200 MG/20 ML VIAL ONE (10:59)
[2018-02-26] MEDS ORDERED: Promethazine HCl 25 MG/ML VIAL IM PRN (12:22)
[2018-02-26] MEDS ORDERED: Promethazine HCl 25 MG/ML VIAL SLOW IVP PRN (12:22)
[2018-02-26] MEDS ORDERED: Ondansetron HCl/PF 4 MG/2 ML Vial IVP PRN (12:22)
--- NOTE | 2018-02-26 13:02 | OP ---
DATE OF PROCEDURE: 02/26/2018 PROCEDURE: Esophagogastroduodenoscopy. PHYSICIAN: Amilcar Robles M.D. MEDICATION: Given per Anesthesiology Department. PREOPERATIVE DIAGNOSES: 1. Melenic stool. 2. Status post upper endoscopy to control hemorrhage of a proximal gastric ulcer 4 days ago. 3. B cell gastric lymphoma. POSTOPERATIVE DIAGNOSES: 1. Proximal ulcer in cardia without any active bleeding. 2. Small ulcerations in the proximal stomach without any active bleeding. PROCEDURE IN DETAIL: A written consent was obtained prior to procedure. After good sedation, the fo rward-viewing endoscope was advanced down the stomach under vision to second portion of duodenum. Th e duodenum appeared normal. Pylorus was patent. The stomach was fully insufflated. The previously treated ulcer in the proximal cardia was visualized and appeared without any evidence of bleeding. S everal other ulcerations were seen with bland base without bleeding was also seen. No blood was visi ble in the stomach lumen. The body, antrum and fundus appeared normal. GE junction and esophagus ap peared normal. The patient tolerated the procedure well. ASSESSMENT: 1. Previously treated ulcer visualized without any evidence of bleeding. 2. Older ulcerations noted in the mid to proximal stomach without any stigmata of bleeding. RECOMMENDATIONS: 1. Resume diet. 2. Continue with pantoprazole 40 mg daily.
[2018-02-26] MEDS: Acetaminophen 325 MG TAB PO PRN (17:43)
--- NOTE | 2018-02-26 18:21 | CT ---
CT GUIDED BONE MARROW BIOPSY: 02/26/18 HISTORY: Lymphoma. COMPARISON: CT abdomen and pelvis 02/11/18. TECHNIQUE/FINDINGS: The patient is brought to the CT Suite where all questions were answered. The patient's pelvis is prepped and draped in the normal sterile fashion as patient was put in the pr one position. Informed consent was obtained. Timeout performed. Superficial deep soft tissues were anesthetized wit h lidocaine. Dermatomy was made after adequate anesthesia. Using a drill, the bone marrow was accesse d in the right iliac bone. 10 mL of bone marrow aspirate was obtained as well as a 1 cm core. IMPRESSION: Technically successful CT guided bone marrow biopsy. POS: [facility]
[2018-02-26] MEDS: Simvastatin 5 MG TAB PO SCH (20:44)
[2018-02-27 05:47] LABS: ALT (SGPT) 7 U/L (8-55); AST (SGOT) 27 U/L (5-34); Albumin 2.9 g/dL (3.4-4.8); Alkaline Phosphatase 74 U/L (40-150); Anion Gap 11 mmol/L (10-20); BUN (Urea Nitrogen) 10 mg/dL (9.8-20.1); Bilirubin, Total 0.5 mg/dL (0.2-1.2); Calc. Creatinine Clearance 43 mL/min (70-130); Calcium 9.6 mg/dL (7.8-10.44); Carbon Dioxide 34 mmol/L (23-31); Chloride 95 mmol/L (98-107); Estimated GFR-MDRD 76; Globulin 2.9 g/dL (2.4-3.5); Glucose 105 mg/dL (83-110); Potassium 3.7 mmol/L (3.5-5.1); Protein, Total 5.8 g/dL (6.0-8.3); Sodium 136 mmol/L (136-145)
[2018-02-27 06:12] LABS: Band 21 % (5-11); Hemoglobin 10.3 g/dL (12.0-16.0); Lymphocytes 27 % (21-51); MDiff Complete? YES; Mean Corpuscular HGB CONC 32.1 g/dL (32.0-36.0); Mean Corpuscular Hemoglobin 28.5 pg (27.0-31.0); Mean Corpuscular Volume 88.8 fL (78.0-98.0); Mean Platelet Volume 8.9 fL (7.4-10.4); Metamyelocyte 3 % (0-0); Monocytes 4 % (0-10); Myelocyte 3 % (0-0); Neutrophil 42 % (42-75); PLT Morphology Comment Appears Decreased; Platelet Count 70 thou/uL (130-400); RBC Distribution Width 15.8 % (11.5-14.5); White Blood Cell (WBC) Count 12.8 thou/uL (4.8-10.8)
--- NOTE | 2018-02-27 07:36 | PRG ---
DATE OF SERVICE: 02/27/2018 SUBJECTIVE: The patient rested well overnight. She feels fine this morning, denying having any abdo grazyna pain, nausea, vomiting. There is no overt sign of bleeding such as melena or hematochezia. EG D yesterday did not show any evidence of bleeding from previously treated ulcers, other ulcers were w ithout any stigmata of bleeding. PHYSICAL EXAMINATION: VITAL SIGNS: Temperature is 98.5, blood pressure 167/77, pulse of 95. GENERAL: She is alert, conversant, in no distress. HEENT: Shows anicteric sclerae. NECK: Supple. CARDIOVASCULAR: Shows normal S1, S2 regular rate and rhythm. CHEST: Shows normal breath sounds. ABDOMEN: Soft, no tenderness, no palpable mass or organomegaly. She has active bowel sounds. EXTREMITIES: Shows no edema. LABORATORY DATA: WBC is 12.8, hemoglobin 10.3, platelet count of 70. Electrolytes within normal ran ge, creatinine 0.7. ASSESSMENT: 1. Multiple ulcerations in stomach with biopsies showing diffuse B cell lymphoma. 2. Status post upper gastrointestinal bleed, status post cauterization of proximal ulcer on 8, no sign of bleeding over the last 4 days on rescope yesterday. 3. Anemia of acute blood loss, blood count has remained stable over the last 4 days. RECOMMENDATIONS: 1. Further evaluation per Oncology pending biopsy result. 2. Continue pantoprazole 40 mg p.o. b.i.d. 3. No other GI recommendation, please call GI Service if needed.
[2018-02-27] MEDS: Potassium Chloride 10 MEQ TAB PO SCH ×2 (08:22→20:43)
[2018-02-27] MEDS: Amoxicillin/Potassium Clav 875 MG TAB PO SCH ×2 (08:22→20:44)
[2018-02-27] MEDS: Simvastatin 5 MG TAB PO SCH (20:38)
[2018-02-28 05:46] LABS: ALT (SGPT) 7 U/L (8-55); AST (SGOT) 28 U/L (5-34); Albumin 3.1 g/dL (3.4-4.8); Alkaline Phosphatase 74 U/L (40-150); Anion Gap 13 mmol/L (10-20); BUN (Urea Nitrogen) 10 mg/dL (9.8-20.1); Bilirubin, Total 0.4 mg/dL (0.2-1.2); Calc. Creatinine Clearance 44 mL/min (70-130); Carbon Dioxide 32 mmol/L (23-31); Chloride 94 mmol/L (98-107); Estimated GFR-MDRD 79; Globulin 2.9 g/dL (2.4-3.5); Glucose 91 mg/dL (83-110); Potassium 4.4 mmol/L (3.5-5.1); Sodium 135 mmol/L (136-145)
[2018-02-28 06:36] LABS: Band 4 % (5-11); Hemoglobin 10.7 g/dL (12.0-16.0); Lymphocytes 35 % (21-51); MDiff Complete? YES; Mean Corpuscular HGB CONC 31.9 g/dL (32.0-36.0); Mean Corpuscular Hemoglobin 28.4 pg (27.0-31.0); Mean Platelet Volume 9.2 fL (7.4-10.4); Neutrophil 61 % (42-75); Nucleated RBC 1 % (0); PLT Morphology Comment Appears Decreased; Platelet Count 55 thou/uL (130-400); RBC Distribution Width 15.9 % (11.5-14.5); Red Blood Cell (RBC) Count 3.78 mill/uL (4.20-5.40); White Blood Cell (WBC) Count 12.6 thou/uL (4.8-10.8)
[2018-02-28] MEDS: Amoxicillin/Potassium Clav 875 MG TAB PO SCH ×2 (10:22→21:51)
[2018-02-28] MEDS: Potassium Chloride 10 MEQ TAB PO SCH ×2 (10:22→21:51)
--- NOTE | 2018-02-28 10:32 | RAD ---
PA AND LATERAL VIEWS CHEST: HISTORY: Pneumonia. FINDINGS: Comparison is made with the exam of 02/24/2018. Changes of median sternotomy are again seen. There is interval improvement in the bibasilar infiltra brannon without complete resolution. No pneumothoraces are seen. Small pleural effusions may be present . POS: [facility]
[2018-02-28] MEDS: Simvastatin 5 MG TAB PO SCH (21:52)
[2018-03-01 05:43] LABS: ALT (SGPT) 8 U/L (8-55); AST (SGOT) 24 U/L (5-34); Alkaline Phosphatase 70 U/L (40-150); Anion Gap 13 mmol/L (10-20); BUN (Urea Nitrogen) 10 mg/dL (9.8-20.1); Bilirubin, Total 0.4 mg/dL (0.2-1.2); Calc. Creatinine Clearance 48 mL/min (70-130); Calcium 9.4 mg/dL (7.8-10.44); Carbon Dioxide 29 mmol/L (23-31); Chloride 95 mmol/L (98-107); Estimated GFR-MDRD 86; Globulin 2.3 g/dL (2.4-3.5); Glucose 90 mg/dL (83-110); Potassium 4.1 mmol/L (3.5-5.1); Protein, Total 5.3 g/dL (6.0-8.3); Sodium 133 mmol/L (136-145)
[2018-03-01 09:39] LABS: Band 15 % (5-11); Blast 3 % (0-0); Eosinophils 1 % (0-10); Hemoglobin 9.5 g/dL (12.0-16.0); Hypochromia SLIGHT = 6-15 cells (100X) (0-5/hpf); Lymphocytes 4 % (21-51); MDiff Complete? YES; Mean Corpuscular HGB CONC 31.9 g/dL (32.0-36.0); Mean Corpuscular Hemoglobin 28.1 pg (27.0-31.0); Mean Corpuscular Volume 88.2 fL (78.0-98.0); Mean Platelet Volume 9.1 fL (7.4-10.4); Monocytes 14 % (0-10); Myelocyte 7 % (0-0); Neutrophil 53 % (42-75); Nucleated RBC 2 % (0); PLT Morphology Comment Appears Decreased; Platelet Count 52 thou/uL (130-400); Polychromasia SLIGHT = 2-3 cells (100X) (0-2/hpf); RBC Distribution Width 15.7 % (11.5-14.5); Reactive Lymphocytes 3 % (0-10); Red Blood Cell (RBC) Count 3.39 mill/uL (4.20-5.40); White Blood Cell (WBC) Count 11.4 thou/uL (4.8-10.8)
[2018-03-01] MEDS: Amoxicillin/Potassium Clav 875 MG TAB PO SCH ×2 (09:41→20:53)
[2018-03-01] MEDS: Potassium Chloride 10 MEQ TAB PO SCH ×2 (09:41→20:53)
[2018-03-01] MEDS: Simvastatin 5 MG TAB PO SCH (20:53)
[2018-03-02 04:48] LABS: ALT (SGPT) 10 U/L (8-55); AST (SGOT) 28 U/L (5-34); Albumin 3.1 g/dL (3.4-4.8); Alkaline Phosphatase 67 U/L (40-150); Anion Gap 13 mmol/L (10-20); BUN (Urea Nitrogen) 11 mg/dL (9.8-20.1); Bilirubin, Total 0.4 mg/dL (0.2-1.2); Calc. Creatinine Clearance 48 mL/min (70-130); Calcium 10.1 mg/dL (7.8-10.44); Carbon Dioxide 30 mmol/L (23-31); Chloride 95 mmol/L (98-107); Estimated GFR-MDRD 83; Globulin 2.7 g/dL (2.4-3.5); Glucose 80 mg/dL (83-110); Potassium 4.4 mmol/L (3.5-5.1); Protein, Total 5.8 g/dL (6.0-8.3); Sodium 134 mmol/L (136-145)
[2018-03-02 05:27] LABS: Band 24 % (5-11); Hemoglobin 9.9 g/dL (12.0-16.0); Lymphocytes 22 % (21-51); MDiff Complete? YES; Mean Corpuscular Hemoglobin 28.8 pg (27.0-31.0); Mean Platelet Volume 9.1 fL (7.4-10.4); Metamyelocyte 3 % (0-0); Monocytes 8 % (0-10); Myelocyte 3 % (0-0); Neutrophil 37 % (42-75); PLT Morphology Comment Appears Decreased; Platelet Count 53 thou/uL (130-400); RBC Distribution Width 15.6 % (11.5-14.5); RBC Morphology Normal; Reactive Lymphocytes 3 % (0-10); Red Blood Cell (RBC) Count 3.44 mill/uL (4.20-5.40)
[2018-03-02] MEDS: Amoxicillin/Potassium Clav 875 MG TAB PO SCH ×2 (08:17→19:55)
[2018-03-02] MEDS: Potassium Chloride 10 MEQ TAB PO SCH ×2 (08:17→19:54)
[2018-03-02] MEDS: Simvastatin 5 MG TAB PO SCH (19:54)
[2018-03-03 05:45] LABS: ALT (SGPT) 9 U/L (8-55); AST (SGOT) 31 U/L (5-34); Albumin 3.2 g/dL (3.4-4.8); Alkaline Phosphatase 67 U/L (40-150); Anion Gap 15 mmol/L (10-20); BUN (Urea Nitrogen) 11 mg/dL (9.8-20.1); Bilirubin, Total 0.4 mg/dL (0.2-1.2); Calc. Creatinine Clearance 47 mL/min (70-130); Calcium 10.4 mg/dL (7.8-10.44); Carbon Dioxide 28 mmol/L (23-31); Chloride 94 mmol/L (98-107); Estimated GFR-MDRD 76; Globulin 2.8 g/dL (2.4-3.5); Glucose 80 mg/dL (83-110); Potassium 4.5 mmol/L (3.5-5.1); Sodium 132 mmol/L (136-145)
[2018-03-03 06:01] LABS: Band 5 % (5-11); Differential Comment Blast-Like Cell(s); Hemoglobin 10.3 g/dL (12.0-16.0); Hypochromia SLIGHT = 6-15 cells (100X) (0-5/hpf); Lymphocytes 34 % (21-51); MDiff Complete? YES; Mean Corpuscular HGB CONC 32.1 g/dL (32.0-36.0); Mean Corpuscular Hemoglobin 28.1 pg (27.0-31.0); Mean Corpuscular Volume 87.5 fL (78.0-98.0); Mean Platelet Volume 9.5 fL (7.4-10.4); Monocytes 2 % (0-10); Myelocyte 1 % (0-0); Neutrophil 55 % (42-75); Nucleated RBC 1 % (0); PLT Morphology Comment Appears Decreased; Platelet Count 50 thou/uL (130-400); RBC Distribution Width 15.7 % (11.5-14.5); Red Blood Cell (RBC) Count 3.65 mill/uL (4.20-5.40); Reflex for Review?? NO; White Blood Cell (WBC) Count 11.9 thou/uL (4.8-10.8)
[2018-03-03] MEDS: Amoxicillin/Potassium Clav 875 MG TAB PO SCH ×2 (08:06→20:27)
[2018-03-03] MEDS: Potassium Chloride 10 MEQ TAB PO SCH ×2 (08:06→20:27)
[2018-03-03] MEDS: Simvastatin 5 MG TAB PO SCH (20:27)
[2018-03-03] MEDS: Acetaminophen 325 MG TAB PO PRN (23:09)
[2018-03-03] MEDS ORDERED: diphenhydrAMINE 25 MG CAP PO SCH (23:15)
[2018-03-04 05:10] LABS: ALT (SGPT) 8 U/L (8-55); AST (SGOT) 32 U/L (5-34); Albumin 3.2 g/dL (3.4-4.8); Alkaline Phosphatase 68 U/L (40-150); Anion Gap 15 mmol/L (10-20); BUN (Urea Nitrogen) 14 mg/dL (9.8-20.1); Bilirubin, Total 0.5 mg/dL (0.2-1.2); Calc. Creatinine Clearance 42 mL/min (70-130); Calcium 10.4 mg/dL (7.8-10.44); Carbon Dioxide 25 mmol/L (23-31); Chloride 93 mmol/L (98-107); Estimated GFR-MDRD 68; Globulin 2.6 g/dL (2.4-3.5); Glucose 88 mg/dL (83-110); Potassium 4.3 mmol/L (3.5-5.1); Protein, Total 5.8 g/dL (6.0-8.3); Sodium 129 mmol/L (136-145)
[2018-03-04 05:34] LABS: Band 9 % (5-11); Blast 3 % (0-0); Hemoglobin 9.5 g/dL (12.0-16.0); Hypochromia SLIGHT = 6-15 cells (100X) (0-5/hpf); Lymphocytes 40 % (21-51); MDiff Complete? YES; Mean Corpuscular HGB CONC 32.7 g/dL (32.0-36.0); Mean Corpuscular Hemoglobin 28.5 pg (27.0-31.0); Monocytes 7 % (0-10); Neutrophil 41 % (42-75); Nucleated RBC 2 % (0); PLT Morphology Comment Appears Decreased; Platelet Count 47 thou/uL (130-400); Polychromasia SLIGHT = 2-3 cells (100X) (0-2/hpf); RBC Distribution Width 15.7 % (11.5-14.5); Red Blood Cell (RBC) Count 3.34 mill/uL (4.20-5.40); White Blood Cell (WBC) Count 15.6 thou/uL (4.8-10.8)
[2018-03-04] MEDS: Potassium Chloride 10 MEQ TAB PO SCH ×2 (08:38→20:13)
[2018-03-04] MEDS: Piperacillin/Tazobactam 4.5 GM in Sodium Chloride 0.9% 100 ML IVPB SCH ×3 (08:38→20:13)
[2018-03-04] MEDS: Sodium Chloride 0.9% 1,000 ML IV SCH (08:40)
--- NOTE | 2018-03-04 09:37 | RAD ---
TWO VIEW CHEST: Comparison: 02-28-18 Indication: Pneumonia. FINDINGS: There is a lucency in the left upper quadrant, not further characterized on this exam. Bibasilar opac ities are present, including parenchymal density and adjacent pleural based opacity. There is shallow depth of inspiration with enlargement of the cardiac silhouette and pulmonary vasculature. Scattered nodularity seen in the lung bilaterally. IMPRESSION: 1. Focal lucency in the left upper quadrant, which may be related to interspersed aerated lung betwe en parenchymal opacity as well as pleural based density. The possibility of pneumoperitoneum cannot b e excluded. Recommend correlation with physical exam. If the patient demonstrates signs of acute abdo men, dedicated CT would be indicated in this regard. 2. Bilateral pneumonia with pleural fluid and scattered nodularity. Recommend continued chest radiogr aphic follow up to confirm resolution. 3. CHF. Code T POS: [facility]
[2018-03-04] MEDS: Acetaminophen 325 MG TAB PO PRN (14:31)
--- NOTE | 2018-03-04 18:31 | CT ---
CT CHEST WITHOUT CONTRAST: 03/04/18 Multiple axial tomograms obtained through the chest without IV enhancement. INDICATIONS: Chest x-ray suggested lung infiltrates. Comparison made to chest CT of 02/10/18. Poor inspiration. There is bibasilar atelectasis and/or streaky infiltrates with small effusions slig htly larger on the left. There is a nodule in the left lower lung measuring approximately 7 mm. This nodule is not apparent on the prior study. There is a 9 mm nodule in the anterior right lower lung wh ich as present on the prior study. Pleural based nodularity bilaterally is stable. The mediastinal ad enopathy is again noted. Pathologic changes in the posterior left 8th rib was previously described an d is again noted. The compression deformities of the thoracic vertebra again noted. IMPRESSION: 1. Chest CT is very similar to 02/10/18. Atelectasis and/or streaky infiltrate in the lung bases appear similar and there is small left effusion which is similar. There are pulmonary nodules again n oted as described. 2. The mediastinal and hilar adenopathy is again noted and was previously described. POS: [facility]
[2018-03-04] MEDS: diphenhydrAMINE 25 MG CAP PO SCH (20:13)
[2018-03-04] MEDS: Simvastatin 5 MG TAB PO SCH (20:13)
[2018-03-05] MEDS: Piperacillin/Tazobactam 4.5 GM in Sodium Chloride 0.9% 100 ML IVPB SCH ×2 (03:06→08:29)
[2018-03-05 06:17] LABS: ALT (SGPT) 8 U/L (8-55); AST (SGOT) 33 U/L (5-34); Albumin 3.1 g/dL (3.4-4.8); Alkaline Phosphatase 68 U/L (40-150); Anion Gap 13 mmol/L (10-20); BUN (Urea Nitrogen) 10 mg/dL (9.8-20.1); Bilirubin, Total 0.5 mg/dL (0.2-1.2); Calc. Creatinine Clearance 46 mL/min (70-130); Calcium 10.3 mg/dL (7.8-10.44); Carbon Dioxide 26 mmol/L (23-31); Chloride 98 mmol/L (98-107); Estimated GFR-MDRD 75; Globulin 2.6 g/dL (2.4-3.5); Glucose 74 mg/dL (83-110); Potassium 4.3 mmol/L (3.5-5.1); Protein, Total 5.7 g/dL (6.0-8.3); Sodium 133 mmol/L (136-145); Uric Acid 4.8 mg/dL (2.6-6.0)
[2018-03-05 06:34] LABS: Band 36 % (5-11); Blast 3 % (0-0); Eosinophils 1 % (0-10); Hemoglobin 9.9 g/dL (12.0-16.0); Lymphocytes 29 % (21-51); MDiff Complete? YES; Mean Corpuscular HGB CONC 31.7 g/dL (32.0-36.0); Mean Corpuscular Hemoglobin 27.8 pg (27.0-31.0); Mean Corpuscular Volume 87.8 fL (78.0-98.0); Mean Platelet Volume 9.3 fL (7.4-10.4); Metamyelocyte 2 % (0-0); Monocytes 1 % (0-10); Myelocyte 2 % (0-0); Neutrophil 26 % (42-75); Nucleated RBC 1 % (0); Platelet Count 44 thou/uL (130-400); RBC Distribution Width 15.9 % (11.5-14.5); Red Blood Cell (RBC) Count 3.57 mill/uL (4.20-5.40); White Blood Cell (WBC) Count 14.6 thou/uL (4.8-10.8)
[2018-03-05] MEDS: Potassium Chloride 10 MEQ TAB PO SCH ×2 (08:28→19:58)
[2018-03-05 12:14] VITALS: BMI 22.9
--- NOTE | 2018-03-05 13:54 | CON ---
DATE OF CONSULTATION: 03/05/2018 SERVICE: Pulmonary Medicine. REASON FOR CONSULTATION: Pneumonia. HISTORY OF PRESENT ILLNESS: The patient is an 83-year-old female who lives in a nursing facility. She has recently had multiple falls and broke her pelvis. She spends most of her time in bed. She does not work with physical therapy when they to come to get out of bed. She was brought to the emergency department because of abrupt onset of shortness of breath. She is a poor historian and cannot really provide me much details of the presentation. That being said, she is aware of the symptom she had when she came into the hospital , and knows where she is. She denies any cough or sputum production. Since she has been in the hospital, she indicates that her breathing has improved fairly dramatically. She has advancing age and has a new diagnosis of lymphoma. She is yet to undergo therapy for this thing. A CT of the chest was performed yesterday. Had multiple findings on it, none of which were consistent with pneumonia at this time. She denies having any cough. She does not have any night sweats or sputum production that she is aware of. PAST MEDICAL HISTORY: 1. Dementia, mild. 2. Type 2 diabetes mellitus, insulin-dependent. 3. Hypertension. 4. Cardiomyopathy. 5. Coronary artery disease. 6. Vitamin D deficiency. 7. Pubic ramus fracture with a history of multiple falls. PAST SURGICAL HISTORY: 1. Cholecystectomy. 2. Appendectomy. 3. Coronary artery bypass graft. 4. Carotid endarterectomy. 5. Tonsillectomy. 6. Appendectomy. FAMILY HISTORY: Noncontributory. SOCIAL HISTORY: Negative for alcohol, tobacco or illicit drug use. She lives in a nursing facility. She has no exposure to chemicals, dust asbestos or tuberculosis throughout her life. ALLERGIES: CODEINE. MEDICATIONS: Lists of her inpatient medications were reviewed. Multiple updates were made. REVIEW OF SYSTEMS: General, head, ears, eyes, nose, throat, cardiovascular, respiratory, GI, , musculoskeletal, neurologic and skin is negative except as mentioned in the HPI. PHYSICAL EXAMINATION: VITAL SIGNS: Afebrile, pulse 101, blood pressure 91/61, respirations 18, saturation 95% on 2 liters nasal cannula. GENERAL: The patient is awake, alert, no apparent distress. LUNGS: Rhonchi are present, but clear with cough. There is no prolonged expiratory phase or wheezing identified. HEART: Normal rate and regular. ABDOMEN: Soft, nontender, nondistended. Bowel sounds are positive. MUSCULOSKELETAL: No cyanosis or clubbing. There is no pitting in the bilateral lower extremities. SKIN: Tenting is poor. NEUROLOGIC: Grossly nonfocal. LABORATORY DATA: WBC 14.6, hemoglobin 9.9, platelets 44,000. There is actually blasts in the specimen. Band count is quite elevated. INR 1.1. PH 7.45, pCO2 39, pO2 80. She was on 2 liters nasal cannula at that time. Basic metabolic profile and liver function studies are essentially unremarkable. Urinalysis is negative. Vancomycin is 9.5. Flow cytometry is consistent with B cell lymphoma. Blood cultures x2 and urine culture remain unremarkable. IMAGING DATA: 1. Chest x-ray demonstrates abnormal pleural parenchymal opacifications that persist, but are stable since over the past month. 2. CT of the chest demonstrates no consolidating infiltrates. There are emphysematous changes of the bilateral lung fuentes. There is aspiration related changes that are extensive and present throughout bilateral lung fuentes. There is a small rim of pleural effusions bilaterally. Pleural densities are noted. There are a couple small pulmonary nodules. There is extensive mediastinal lymphadenopathy and cervical lymphadenopathy. ASSESSMENT: 1. Acute hypoxic respiratory failure. 2. Health care associated pneumonia, status post full course of antibiotics. 3. Sepsis. 4. Oropharyngeal dysphagia. 5. Aspiration pneumonitis, suspected. 6. Pulmonary nodules. 7. Lymphoma, widespread. DISCUSSION AND PLAN: The pulmonary nodularity, mediastinal lymphadenopathy, required no additional investigation. The patient is not a candidate for therapy associated with lung cancers. 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 Oncology is considering options moving forward for this patient. She has been adequately treated for her pneumonia so, her antibiotics is going to be discontinued. We will put her on a 7-day course of antifungal medications as she would be at high risk for that. For the rest of the life, she will need to follow aspiration related precautions and elevate head of bed and avoid p.o. within 2 hours of being in bed. During waking hours, she should remain as upright as possible. Pulmonary will continue to follow along for the time being. From a respiratory perspective, she is stable for transition out of the hospital. 70 minutes have been devoted to this patient in various activities. I personally reviewed all imaging studies and laboratory data noted within this document. For fifty percent of this time, I was interacting with the patient at the bedside or coordinating care with the care team. For the remainder of the time I was immediately available to the patient in the hospital unit. TERRY
[2018-03-05] MEDS: Micafungin 100 MG in Sodium Chloride 0.9% 100 ML IVPB SCH (14:22)
[2018-03-05] MEDS: diphenhydrAMINE 25 MG CAP PO SCH (19:57)
[2018-03-05] MEDS: Simvastatin 5 MG TAB PO SCH (19:58)
[2018-03-06] MEDS: Sodium Chloride 0.9% 1,000 ML IV SCH (02:17)
[2018-03-06] MEDS: Piperacillin/Tazobactam 4.5 GM in Sodium Chloride 0.9% 100 ML IVPB SCH ×4 (03:00→19:59)
[2018-03-06 05:37] LABS: ALT (SGPT) 10 U/L (8-55); AST (SGOT) 40 U/L (5-34); Albumin 3.3 g/dL (3.4-4.8); Alkaline Phosphatase 77 U/L (40-150); Anion Gap 17 mmol/L (10-20); BUN (Urea Nitrogen) 11 mg/dL (9.8-20.1); Bilirubin, Total 0.5 mg/dL (0.2-1.2); Calc. Creatinine Clearance 42 mL/min (70-130); Calcium 10.5 mg/dL (7.8-10.44); Carbon Dioxide 24 mmol/L (23-31); Chloride 97 mmol/L (98-107); Estimated GFR-MDRD 67; Globulin 2.7 g/dL (2.4-3.5); Glucose 68 mg/dL (83-110); Potassium 4.6 mmol/L (3.5-5.1); Sodium 133 mmol/L (136-145)
[2018-03-06 05:53] LABS: Band 23 % (5-11); Differential Comment Blast-Like Cell(s); Hemoglobin 10.1 g/dL (12.0-16.0); Lymphocytes 28 % (21-51); MDiff Complete? YES; Mean Corpuscular HGB CONC 32.2 g/dL (32.0-36.0); Mean Corpuscular Hemoglobin 28.2 pg (27.0-31.0); Mean Corpuscular Volume 87.7 fL (78.0-98.0); Mean Platelet Volume 9.8 fL (7.4-10.4); Metamyelocyte 3 % (0-0); Monocytes 4 % (0-10); Myelocyte 4 % (0-0); Neutrophil 34 % (42-75); Nucleated RBC 2 % (0); PLT Morphology Comment Appears Decreased; Platelet Count 45 thou/uL (130-400); RBC Distribution Width 16.1 % (11.5-14.5); Reactive Lymphocytes 2 % (0-10); Red Blood Cell (RBC) Count 3.59 mill/uL (4.20-5.40); White Blood Cell (WBC) Count 20.2 thou/uL (4.8-10.8)
[2018-03-06] MEDS: Potassium Chloride 10 MEQ TAB PO SCH ×2 (08:56→19:59)
[2018-03-06] MEDS: Acetaminophen 325 MG TAB PO PRN ×2 (12:24→22:49)
--- NOTE | 2018-03-06 14:03 | PRG ---
DATE OF SERVICE: 03/06/2018 SERVICE: Pulmonary Medicine. INTERVAL HISTORY: The patient appears to be breathing well. That being said, when I asked about her breathing, she suddenly starts becoming tachypneic. She says that she has some difficulties. That being said, when we distract her, she will slow the respirations back down. She denies any current fevers or chills. She is not having any significant cough. She is getting a breathing treatment. Otherwise, there has been no interval change to her condition. PHYSICAL EXAMINATION: VITAL SIGNS: Afebrile, pulse 109, blood pressure 105/58, respirations 24, saturation 96% on 2 liters nasal cannula. GENERAL: The patient is awake, alert, no apparent distress. LUNGS: Excellent air entry. Crackles are present. There is no prolonged expiratory phase or wheezing appreciated. HEART: Normal rate, regular. ABDOMEN: Soft, nontender, nondistended. Bowel sounds are positive. MUSCULOSKELETAL: No cyanosis or clubbing. There is no pitting in the bilateral lower extremities. NEUROLOGIC: Grossly nonfocal. LABORATORY DATA: WBC 20.2, hemoglobin 10.1, platelets 45. Basic metabolic profile and liver function studies are otherwise unremarkable. Calcium is 10.5. Blood cultures x2 and urine culture remain unremarkable. ASSESSMENT: 1. Sepsis. 2. Community-acquired pneumonia, status post full course of antibiotic. 3. Aspiration pneumonitis. 4. Oropharyngeal dysphagia, suspected. 5. Pulmonary nodules. 6. Mediastinal lymphadenopathy, widespread. 7. Lymphoma, widespread. DISCUSSION: We can continue a brief course of antifungal antibiotics. That being said, bacterial species are likely treated. I do not see any significant evidence of sepsis process. CT of the chest was reassuring and most consistent with aspiration related lung changes. I do not see a consolidating pneumonia. We will need to make certain we elevate head of bed for the rest of life and avoid p.o. within 2 hours of going to sleep. Palliative consultation will be placed. I will continue to follow for now. [facility] FOR THE CRIMINALLY INSANEMarycarmen
[2018-03-06] MEDS: Micafungin 100 MG in Sodium Chloride 0.9% 100 ML IVPB SCH (15:31)
[2018-03-06] MEDS: Allopurinol 300 MG TAB PO SCH (19:59)
[2018-03-06] MEDS: Simvastatin 5 MG TAB PO SCH (19:59)
[2018-03-06] MEDS: diphenhydrAMINE 25 MG CAP PO SCH (19:59)
[2018-03-06] MEDS ORDERED: Lorazepam 0.5 MG TAB PO SCH ×2 (21:30→22:45)
--- NOTE | 2018-03-06 22:11 | RAD ---
PORTABLE CHEST ONE VIEW: 03/06/18 at 9:39 p.m. HISTORY: Shortness of breath. FINDINGS/IMPRESSION: Comparison is made with exam of 03/04/18. Changes of median sternotomy are again seen. Bibasilar atelectatic changes are again seen. No lobar c onsolidation, pneumothoraces, or silvia pulmonary edema identified. Small pleural effusions may be pre sent. POS: [facility]
[2018-03-07] MEDS ORDERED: Furosemide 20 MG/2 ML VIAL SLOW IVP SCH (00:30)
[2018-03-07] MEDS ORDERED: Piperacillin/Tazobactam 4.5 GM VIAL ONE (05:03)
[2018-03-07] MEDS: Potassium Chloride 10 MEQ TAB PO SCH ×2 (10:05→21:22)
[2018-03-07] MEDS: Allopurinol 300 MG TAB PO SCH ×2 (10:05→21:22)
[2018-03-07] MEDS: Piperacillin/Tazobactam 4.5 GM in Sodium Chloride 0.9% 100 ML IVPB SCH ×2 (10:05→14:54)
[2018-03-07 11:53] LABS: Hemoglobin 9.7 g/dL (12.0-16.0); Mean Corpuscular Hemoglobin 27.2 pg (27.0-31.0); Mean Corpuscular Volume 87.9 fL (78.0-98.0); Platelet Count 36 thou/uL (130-400); RBC Distribution Width 16.3 % (11.5-14.5); Red Blood Cell (RBC) Count 3.57 mill/uL (4.20-5.40); White Blood Cell (WBC) Count 21.5 thou/uL (4.8-10.8)
[2018-03-07 11:54] LABS: MDiff Complete? YES; Manual Diff?? YES; Mean Platelet Volume 9.7 fL (7.4-10.4)
[2018-03-07 11:55] LABS: Band 21 % (5-11); Differential Comment Blast-Like Cell(s); Lymphocytes 27 % (21-51); Metamyelocyte 6 % (0-0); Monocytes 2 % (0-10); Myelocyte 7 % (0-0); Neutrophil 37 % (42-75)
[2018-03-07 11:56] LABS: Nucleated RBC 2 % (0); PLT Morphology Comment Appears Decreased
[2018-03-07 12:44] LABS: ALT (SGPT) 11 U/L (8-55); AST (SGOT) 54 U/L (5-34); Albumin 3.3 g/dL (3.4-4.8); Alkaline Phosphatase 78 U/L (40-150); Anion Gap 18 mmol/L (10-20); BUN (Urea Nitrogen) 12 mg/dL (9.8-20.1); Bilirubin, Total 0.5 mg/dL (0.2-1.2); Calc. Creatinine Clearance 42 mL/min (70-130); Calcium 10.4 mg/dL (7.8-10.44); Carbon Dioxide 25 mmol/L (23-31); Chloride 92 mmol/L (98-107); Estimated GFR-MDRD 67; Globulin 2.6 g/dL (2.4-3.5); Glucose 122 mg/dL (83-110); Protein, Total 5.9 g/dL (6.0-8.3); Sodium 131 mmol/L (136-145)
[2018-03-07] MEDS ORDERED: Lorazepam 0.5 MG TAB PO PRN (13:13)
[2018-03-07] MEDS: Micafungin 100 MG in Sodium Chloride 0.9% 100 ML IVPB SCH (13:31)
--- NOTE | 2018-03-07 15:35 | PRG ---
DATE OF SERVICE: 03/07/2018 SERVICE: Pulmonary Medicine. INTERVAL HISTORY: The patient is doing fine from a respiratory standpoint. There has been no interv al change to her condition. She cannot provide me with any additional elements of the history esteban ferraro. She is sleeping comfortably and she is actually breathing well. I woke her up and asked her ab out breathing. She started becoming a little bit more tachypneic. That being said, she does not hav e any complaints of overt shortness of breath currently. She is not coughing and not bringing up any sputum currently. PHYSICAL EXAMINATION: VITAL SIGNS: Afebrile, pulse 104, blood pressure 136/64, respirations 18, saturation 92% on room air . GENERAL: The patient is awake, alert, no apparent distress. LUNGS: Decent air entry. There is no prolonged expiratory phase. Crackles are present. No rhonchi today. I do not hear any wheezing. HEART: Normal rate, regular. ABDOMEN: Soft, nontender, nondistended. Bowel sounds are positive. MUSCULOSKELETAL: No cyanosis or clubbing. There is no pitting in the bilateral lower extremities. NEUROLOGIC: Grossly nonfocal. LABORATORY DATA: WBC 21.5, hemoglobin 9.7, platelets 36,000 and down trending. Basic metabolic prof ile is essentially unremarkable. Liver function studies are stable. Blood cultures x2 and urine cul ture remain negative. IMAGING DATA: Chest x-ray demonstrates bibasilar atelectasis. Low lung volumes are present accentua ting interstitial markings. Echocardiogram demonstrates normal ejection fraction. Mitral annular calcification is noted. No sig nificant valvular abnormalities are noted. ASSESSMENT: 1. Community-acquired pneumonia, status post full course of antibiotics. 2. Sepsis. 3. Aspiration pneumonitis. 4. Oropharyngeal dysphagia, suspected. 5. Pulmonary nodules. 6. Mediastinal lymphadenopathy, widespread. 7. Lymphoma, advanced. DISCUSSION AND PLAN: Antifungal medications can be discontinued after a total duration of 7 days. P ulmonary or Critical Care will continue to follow intermittently while the patient remains inhouse, b ut from my perspective, she is stable for transition home. If she has increasing respiratory distres s, please notify me sooner.
[2018-03-07] MEDS: Simvastatin 5 MG TAB PO SCH (21:22)
--- NOTE | 2018-03-07 23:58 | CON ---
DATE OF CONSULTATION: 03/07/2018 CHIEF COMPLAINT: Lymphoma. HISTORY OF PRESENT ILLNESS: Patient is an 83-year-old female. She is currently hospitalized on the medical floor of the hospital. She was admitted, I believe, on 02/22/2018. She has been continuousl y hospitalized since then. She presented with anemia and underwent a gastroenterology evaluation. S he had also been diagnosed with lymphoma prior to her hospitalization. I was asked to see her today to consider placing a MediPort for chemotherapy. After reviewing the rob villela's history, I went to visit with her and this was the first time I had seen her. She was unable to answer a single question I asked. She seemed disoriented and somewhat agitated and uncomfortable . She is unable to converse at all about anything, much less discussed the possibility of beginning the chemotherapy for her lymphoma. I then spoke with her son, De, to see if the family wanted to proceed with chemotherapy in this set ting. He expressed that he did not see how they could proceed with chemotherapy. I, of course, am u ncertain exactly how the patient appeared prior to this evening. ASSESSMENT: This is a limited evaluation, as I am not certain that if the patient's family desires t o proceed with chemotherapy. If that is not the case, then there is no point in placing a MediPort a nd entertaining the potential risk of any surgery. For now, I will hold off on scheduling anything. If the patient or the family or her oncologist have a desire to proceed with chemotherapy, then I ca n certainly place a MediPort at any time and will be happy to do so.
[2018-03-08 05:29] LABS: ALT (SGPT) 11 U/L (8-55); AST (SGOT) 91 U/L (5-34); Albumin 3.1 g/dL (3.4-4.8); Alkaline Phosphatase 155 U/L (40-150); Anion Gap 19 mmol/L (10-20); BUN (Urea Nitrogen) 13 mg/dL (9.8-20.1); Bilirubin, Total 0.6 mg/dL (0.2-1.2); Calc. Creatinine Clearance 42 mL/min (70-130); Calcium 10.2 mg/dL (7.8-10.44); Carbon Dioxide 24 mmol/L (23-31); Chloride 92 mmol/L (98-107); Estimated GFR-MDRD 67; Globulin 2.6 g/dL (2.4-3.5); Glucose 98 mg/dL (83-110); Potassium 4.6 mmol/L (3.5-5.1); Protein, Total 5.7 g/dL (6.0-8.3); Sodium 130 mmol/L (136-145)
[2018-03-08 06:31] LABS: Band 22 % (5-11); Differential Comment Immature Cell(s); Eosinophils 1 % (0-10); Hemoglobin 9.5 g/dL (12.0-16.0); Lymphocytes 35 % (21-51); MDiff Complete? YES; Mean Corpuscular HGB CONC 31.7 g/dL (32.0-36.0); Mean Corpuscular Hemoglobin 27.7 pg (27.0-31.0); Mean Corpuscular Volume 87.2 fL (78.0-98.0); Mean Platelet Volume 9.9 fL (7.4-10.4); Metamyelocyte 3 % (0-0); Monocytes 3 % (0-10); Myelocyte 3 % (0-0); Neutrophil 21 % (42-75); Nucleated RBC 6 % (0); PLT Morphology Comment Appears Decreased; Platelet Count 31 thou/uL (130-400); RBC Distribution Width 16.1 % (11.5-14.5); Reactive Lymphocytes 7 % (0-10); Red Blood Cell (RBC) Count 3.43 mill/uL (4.20-5.40); White Blood Cell (WBC) Count 27.1 thou/uL (4.8-10.8)
[2018-03-08] MEDS: Allopurinol 300 MG TAB PO SCH ×2 (10:07→21:41)
[2018-03-08] MEDS: Potassium Chloride 10 MEQ TAB PO SCH ×2 (10:07→21:41)
[2018-03-08] MEDS: Acetaminophen 325 MG TAB PO PRN (12:40)
[2018-03-08] MEDS ORDERED: traMADol HCl 50 MG TAB PO PRN (13:36)
[2018-03-08] MEDS: Micafungin 100 MG in Sodium Chloride 0.9% 100 ML IVPB SCH (13:40)
[2018-03-08] MEDS: Simvastatin 5 MG TAB PO SCH (21:41)
[2018-03-09 05:22] LABS: Platelet Count 27 thou/uL (130-400)
[2018-03-09 05:25] LABS: ALT (SGPT) 11 U/L (8-55); AST (SGOT) 63 U/L (5-34); Alkaline Phosphatase 156 U/L (40-150); Anion Gap 18 mmol/L (10-20); BUN (Urea Nitrogen) 26 mg/dL (9.8-20.1); Bilirubin, Total 0.5 mg/dL (0.2-1.2); Calc. Creatinine Clearance 32 mL/min (70-130); Calcium 10.3 mg/dL (7.8-10.44); Carbon Dioxide 25 mmol/L (23-31); Chloride 93 mmol/L (98-107); Estimated GFR-MDRD 50; Globulin 2.5 g/dL (2.4-3.5); Glucose 101 mg/dL (83-110); Potassium 4.9 mmol/L (3.5-5.1); Protein, Total 5.5 g/dL (6.0-8.3); Sodium 131 mmol/L (136-145)
[2018-03-09 06:11] LABS: Anisocytosis SLIGHT = 6-15 cells (100X) (0-5/hpf); Band 17 % (5-11); Differential Comment Blast-Like Cell(s); Eosinophils 1 % (0-10); Hemoglobin 9.1 g/dL (12.0-16.0); Lymphocytes 37 % (21-51); MDiff Complete? YES; Mean Corpuscular Hemoglobin 27.9 pg (27.0-31.0); Mean Corpuscular Volume 87.4 fL (78.0-98.0); Mean Platelet Volume 10.3 fL (7.4-10.4); Monocytes 16 % (0-10); Myelocyte 2 % (0-0); Neutrophil 22 % (42-75); Nucleated RBC 2 % (0); PLT Morphology Comment Appears Decreased; RBC Distribution Width 16.4 % (11.5-14.5); Red Blood Cell (RBC) Count 3.24 mill/uL (4.20-5.40); White Blood Cell (WBC) Count 29.4 thou/uL (4.8-10.8)
[2018-03-09] MEDS: Potassium Chloride 10 MEQ TAB PO SCH (09:12)
[2018-03-09] MEDS: Allopurinol 300 MG TAB PO SCH (09:12)
[2018-03-09] MEDS ORDERED: Fentanyl 100 MCG/2 ML VIAL SLOW IVP PRN (10:30)
[2018-03-09] MEDS: Sodium Chloride 0.9% 1,000 ML IV SCH (12:21)
[2018-03-09] MEDS ORDERED: Lorazepam 0.5 MG TAB PO SCH (14:45)
[2018-03-09 19:47] VITALS: BP 130/67; TEMP 98.1
== END 2018-03-09 19:35 | disposition hospice, inpatient (51) | DRG 871 ==
LOC: ERS 09:51 → 2NO 13:30 → T4-A 03-01 17:21
PROVIDERS: ADMIT Internal Medicine; ATTEND Specialist
PROC: 30233N1 Transfusion of Nonautologous Red Blood Cells into Peripheral Vein, Percutaneous Approach (ICD-10-PCS; 2018-02-22)
PROC: 0DB68ZX Excision of Stomach, Via Natural or Artificial Opening Endoscopic, Diagnostic (ICD-10-PCS; 2018-02-23)
PROC: 0W3P8ZZ Control Bleeding in Gastrointestinal Tract, Via Natural or Artificial Opening Endoscopic (ICD-10-PCS; 2018-02-23)
PROC: 3E0G8GC Introduction of Other Therapeutic Substance into Upper GI, Via Natural or Artificial Opening Endoscopic (ICD-10-PCS; 2018-02-23)
PROC: 0DJ08ZZ Inspection of Upper Intestinal Tract, Via Natural or Artificial Opening Endoscopic (ICD-10-PCS; principal; 2018-02-26)
DX: A41.9 Sepsis, unspecified organism (principal); J18.9 Pneumonia, unspecified organism; J96.01 Acute respiratory failure with hypoxia; K92.1 Melena; C85.13 Unspecified B-cell lymphoma, intra-abdominal lymph nodes; I42.9 Cardiomyopathy, unspecified; D62 Acute posthemorrhagic anemia; N39.0 Urinary tract infection, site not specified; I10 Essential (primary) hypertension; R13.12 Dysphagia, oropharyngeal phase; E11.9 Type 2 diabetes mellitus without complications; I25.10 Atherosclerotic heart disease of native coronary artery without angina pectoris; K25.9 Gastric ulcer, unspecified as acute or chronic, without hemorrhage or perforation; F03.90 Unspecified dementia, unspecified severity, without behavioral disturbance, psychotic disturbance, mood disturbance, and anxiety; E55.9 Vitamin D deficiency, unspecified; I95.9 Hypotension, unspecified; E83.42 Hypomagnesemia; Z79.82 Long term (current) use of aspirin; Z79.4 Long term (current) use of insulin; Z88.5 Allergy status to narcotic agent; Z91.81 History of falling; Z90.49 Acquired absence of other specified parts of digestive tract; Z95.1 Presence of aortocoronary bypass graft
CPT/HCPCS: 20225; 36415; 36416; 36430; 51701; 71045; 71046; 71250; 77012; 80053; 80202; 81003; 82533; 82553; 82805; 83615; 83735; 83880; 84100; 84145; 84484; 84550; 85014; 85018; 85025; 85060; 85097; 85610; 86850; 86900; 86901; 87040; 87086; 87449; 88184; 88237; 88264; 88280; 88305; 88311; 88312; 88313; 88341; 88342; 88360; 93005; 93010; 93306; 94640; 96374; 96375; A4353; C9113; G8978-GP-CL; G8978-GP-CM; G8979-GP-CJ; G8979-GP-CK; G8996-GN-CK; G8997-GN-CK; J1940; J1956; J2001; J2248; J2405; J2543; J2704; J3010; J3370; J3475; J7050; J7620; L0639; P9016; Q0162